=== PATIENT | female | born 1960 | race Caucasian/White ===

== ENCOUNTER → 2018-03-25 | Outpatient (CLI) | payer BC ==
[~2018-03-25] MED LIST: ALPR.25T PO; ESCI5TAB PO
[2018-03-25 12:11] LABS: BUN/CREATININE RATIO 24; CREATININE SERUM 0.74 MG/DL (0.60-1.30); GFR ESTIMATED > 60
== END ==
LOC: LAB 11:42
PROVIDERS: ATTEND Nurse Practitioner Family
DX: J40 Bronchitis, not specified as acute or chronic (principal); R91.8 Other nonspecific abnormal finding of lung field; J18.9 Pneumonia, unspecified organism; F17.200 Nicotine dependence, unspecified, uncomplicated
CPT/HCPCS: 36415; 82565; 84520

== ENCOUNTER → 2018-04-14 | Outpatient (CLI) | payer BC, MEDICARE, OTHER ==
[~2018-04-14] MED LIST changes: +CATHETER FLUSH 10 ML SYR IV PRN; +IOHEXOL 350 MG/ML 100 ML (OMNIPAQUE 350) VIAL IV ONE; +NS 100 ML (IVPB) BAG IV ONE; +RECEIVED CONTRAST (Hold Metformin) IV SCH
--- NOTE | 2018-04-14 13:08 | Diagnostic Imaging Report ---
PROCEDURE: CT chest with contrast only. TECHNIQUE: Multiple contiguous axial images were obtained through the chest after administration of intravenous contrast. INDICATION: Cough. There is an irregular mass in the right lower lobe measuring 3.6 x 2.5 cm, worrisome for lung cancer. Lesion would be amenable to percutaneous CT-guided biopsy. There is ipsilateral pathological-appearing right hilar lymph node measuring 2.0 x 1.3 cm. This pathological subcarinal lymphadenopathy measuring 2.5 x 2.0 cm. At the level of the tamy, right lower paratracheal node is 1 cm borderline. There is a right superior paratracheal node at 1.1 cm. There is pathological-appearing spherical irregular right axillary lymph node with a diameter of 1.5 cm. The largest left axillary lymph node is indeterminate 1.2 x 0.8 cm. There is a small node measuring 9 mm long axis left supraclavicular fossa lateral to the carotid vascularity indeterminate. No effusion or pneumothorax. The upper abdomen reveals the adrenal glands to be intact. The partially visualized liver nonfocal. There are spondylitic changes to the lower thoracic spine. IMPRESSION: Findings are worrisome for right lower lobe lung cancer with mediastinal and ipsilateral hilar jennifer metastatic disease, involvement of the axilla and left supraclavicular fossa could not be excluded. I attempted to reach the ordering clinician. She does not have a cell phone number or pager registered with the power plant operator apprentice and the clinic phone is unanswered. Dictated by: Dictated on workstation # [id number]
== END ==
LOC: RAD 11:50
PROVIDERS: ATTEND Nurse Practitioner Family
DX: J40 Bronchitis, not specified as acute or chronic (principal); R91.8 Other nonspecific abnormal finding of lung field; F17.200 Nicotine dependence, unspecified, uncomplicated; J18.9 Pneumonia, unspecified organism
CPT/HCPCS: 71260

== ENCOUNTER → 2018-04-18 | Outpatient (CLI) | payer BC, MEDICARE, OTHER ==
[~2018-04-18] MED LIST changes: +ASCO500C15 PO; +BENZ100C18 PO; -CATHETER FLUSH 10 ML SYR IV PRN; +CHOL2000 PO; +GUAI600T43 PO; +HYDR12.5 PO; -IOHEXOL 350 MG/ML 100 ML (OMNIPAQUE 350) VIAL IV ONE; +MULT-974 PO; -NS 100 ML (IVPB) BAG IV ONE; -RECEIVED CONTRAST (Hold Metformin) IV SCH; +RT-ALBUINH INH; +RT-ALBUTEROL SULF 2.5 MG/3 ML PRE-MIX VIAL INH ONE; +RT-ALBUTEROL SULF 2.5 MG/3 ML PRE-MIX VIAL ONE; +UBID100C44 PO; +VENL150C PO
== END ==
LOC: RT 14:57
PROVIDERS: ATTEND Nurse Practitioner Family
DX: J40 Bronchitis, not specified as acute or chronic (principal); R91.8 Other nonspecific abnormal finding of lung field; J18.9 Pneumonia, unspecified organism; F17.200 Nicotine dependence, unspecified, uncomplicated
CPT/HCPCS: 94060; 94729

== ENCOUNTER → 2018-04-18 | Outpatient (CLI) | payer BC ==
[~2018-04-18] MED LIST changes: -RT-ALBUTEROL SULF 2.5 MG/3 ML PRE-MIX VIAL INH ONE; -RT-ALBUTEROL SULF 2.5 MG/3 ML PRE-MIX VIAL ONE
== END | disposition home or self-care (01) ==
LOC: PREOP 06:28
PROVIDERS: ATTEND Internal Medicine Critical Care Medicine
DX: Z01.818 Encounter for other preprocedural examination (principal)

== ENCOUNTER → 2018-04-19 | Outpatient (CLI) | payer BC ==
--- NOTE | 2018-04-19 16:11 | Diagnostic Imaging Report ---
INDICATION: Lung mass and lymphadenopathy. TECHNIQUE: Serum blood glucose level at the time of injection is 82 mg/dL. The patient was administered 10.9 mCi F-18 FDG intravenously in the right forearm and PET imaging was performed from the top of the skull to mid thighs. Noncontrast CT was also performed for attenuation correction and anatomic correlation. COMPARISON: No prior PET studies available for comparison. Comparison is made with recent chest CT from 04/14/2018. FINDINGS: There is symmetric activity within the brain. There is a lymph node in the right neck appearing slightly hypermetabolic, immediately anterior to the right submandibular gland with a short axis measurement of 5 mm. This demonstrates an SUV max of approximately 3.4. This is indeterminate. No other hypermetabolic foci in the neck are identified. There is a hypermetabolic lymph node in the right axilla measuring 1.8 cm. This demonstrates SUV max of approximately 12.3. Hypermetabolic jennifer mass in the mediastinum subcarinal location is noted with SUV max of 18.9. Right hilar hypermetabolic mass is also seen with SUV max of approximately 15.8. The mass located posteriorly in the right lower lobe on prior imaging is intensely hypermetabolic with SUV max of approximately 15. Left hilum and left lung are unremarkable. Physiologic activity in the GI and tracts in the abdomen and pelvis is seen. No suspicious regions of hypermetabolism are identified. IMPRESSION: 1. Hypermetabolic right lower lobe lung mass. Features are most suggestive of a primary lung neoplasm. There are intensely hypermetabolic jennifer masses in the right hilum and subcarinal location consistent with mediastinal and right hilar metastatic disease. There is also a hypermetabolic enlarged lymph node in the right axilla suggestive of metastatic lesion. A small lymph node in the right neck anterior to the right submandibular gland is seen showing some mild hypermetabolism and is indeterminate. The right lower lobe lung mass would be amenable to percutaneous biopsy. Dictated by: Dictated on workstation # [id number]
== END ==
LOC: RAD 11:34
PROVIDERS: ATTEND Nurse Practitioner Family
DX: J40 Bronchitis, not specified as acute or chronic (principal); F17.200 Nicotine dependence, unspecified, uncomplicated; R59.1 Generalized enlarged lymph nodes; R91.8 Other nonspecific abnormal finding of lung field

== ENCOUNTER 2018-04-20 06:59 | Day surgery (SDC) | payer BC ==
[~2018-04-20] VITALS: Ht 160 cm; Wt 54.9 kg
[~2018-04-20 06:59] MED LIST changes: -ASCO500C15 PO; -BENZ100C18 PO; -CHOL2000 PO; -GUAI600T43 PO; -HYDR12.5 PO; -MULT-974 PO; -RT-ALBUINH INH; -UBID100C44 PO; -VENL150C PO
[2018-04-20] MEDS ORDERED: LIDOCAINE PF 1% 2 ML AMP IJ ONE (07:00)
--- OUTSIDE RECORDS SUMMARY | 2018-04-20 07:02 | XMS REPORT | CCD ---
Author Author JACINTO CABALLERO Organization Unknown Address [address] [facility] [address] [place], [place] [address] Care Team Providers Care Application Support Developer Name Role Phone HAINES ER, BRAD DO Attphys HAINES ER, BRAD DO Prisurg Vital Signs Unknown or Not Available. Allergies Allergy Code Allergy Type Reaction Status No Known Allergies 0 No known allergies Active Procedures Procedure Code Procedure Type Date CT HEAD W/O CONTRAST 541704376 SNOMED CT 02/18/2015 .[place]IDEPRESSANT UR 813892797 SNOMED CT 02/18/2015 .BENZO QUANT UR 762976385 SNOMED CT 02/18/2015 ^CBC W/AUTO DIFF 9288090 SNOMED CT 02/18/2015 C REACTIVE PROTEIN 07520647 SNOMED CT 02/18/2015 RAPID DRUG SCREEN 673069880 SNOMED CT 02/18/[address] 02/18/2015 COMPREHENSIVE METABOLIC PANEL 142935584 SNOMED CT 2014 CBC W/ AUTO DIFF (RFLX MAN DIFF IF IND) 7335059 SNOMED CT 02/18/2015 History of Immunizations Unknown or Not Available. Problems Unknown or Not Available. Results COMPREHENSIVE METABOLIC PANEL - Collect Date/Time: 02/18/2015 10:35 Test Name Code Test Result Test Units Test Ref Range GLUCOSE 2345-7 97 MG/DL L=70 H=100 SODIUM 2951-2 140 MEQ/L L=135 H=148 POTASSIUM 2823-3 5.1 MEQ/L L=3.5 H=5.3 CHLORIDE 2075-0 109 MEQ/L L=96 H=110 CO2 2028-9 25 MEQ/L L=22 H=29 BUN 3094-0 13 MG/DL L=8 H=22 CREATININE 2160-0 0.8 MG/DL L=0.6 H=1.6 SGOT/AST 1920-8 15 IU/L L=10 H=40 SGPT/ALT 1742-6 6 IU/L L=8 H=54 ALK PHOS 6768-6 74 IU/L L=35 H=115 TOTAL PROTEIN 2885-2 6.7 G/DL L=5.5 H=8.5 ALBUMIN 1751-7 4.1 G/DL L=3.1 H=5.4 TOTAL BILI 1975-2 0.3 MG/DL L=0.0 H=1.5 CALCIUM 07768-0 9.4 MG/DL L=8.2 H=10.6 AGE 55 yrs GFR NonAA 75 GFR AA 91 eGFR >60 N/A eGFR AA* >60 N/A RAPID DRUG SCREEN - Collect Date/Time: 02/18/2015 11:27 Test Name Code Test Result Test Units Test Ref Range Cannabinoids (THC) NEGATIVE N/A NEG: < 50 ng/ ml Phencyclidine (PCP) NEGATIVE N/A NEG: < 25 ng/ ml Cocaine NEGATIVE N/A NEG: < 300 ng/ml Methamphetamine NEGATIVE N/A NEG: < 1000 ng/ml Opiates NEGATIVE N/A NEG: < 300 ng/ml Amphetamine NEGATIVE N/A NEG: < 1000 ng/ml Benzodiazepines NON-NEGATIVE N/A NEG: < 300 ng/ ml Tricyclic Antidepres NON-NEGATIVE N/A NEG: < 300 ng/ml Methadone NEGATIVE N/A NEG: < 300 ng/ml Barbiturates NEGATIVE N/A NEG: < 200 ng/ml Oxycodone NEGATIVE N/A NEG: < 100 ng/ml Propoxyphene (PPX) NEGATIVE N/A NEG: < 300 ng/ ml CBC W/ AUTO DIFF (RFLX MAN DIFF IF IND) - Collect Date/Time: 02/18/2015 10:35 Test Name Code Test Result Test Units Test Ref Range WBC 06093-0 8.4 TH/CMM L=4.5 H=10.8 RBC 789-8 4.86 ML/CMM L=4.20 H=5.40 HGB 718-7 15.0 G/DL L=12.0 H=16.0 HCT 4544-3 46.5 % L=37.0 H=47.0 MCV 96 FL L=81 H=99 MCH 30.9 PG L=27.0 H=33.0 MCHC 32.3 G/DL L=31.0 H=36.0 RDW SD 45 FL L=36 H=50 RDW CV 12.8 % L=0.0 H=14.8 MPV 9.9 FL L=9.3 H=12.5 PLT 777-3 264 TH/CMM L=130 H=440 NRBC# 0.00 TH/CMM L=0.00 H=0.00 NRBC% 0.0 /100WBC L=0.0 H=2.0 %NEUT 78.2 % %LYMP 15.4 % %MONO 3.4 % %EOS 2.3 % %BASO 0.7 % #NEUT 6.59 TH/CMM L=2.10 H=8.20 #LYMP 1.30 TH/CMM L=0.90 H=5.20 #MONO 0.29 TH/CMM L=0.16 H=1.00 #EOS 0.19 TH/CMM L=0.00 H=0.80 #BASO 0.06 TH/CMM L=0.00 H=0.20 MANUAL DIFF NOT IND N/A C REACTIVE PROTEIN - Collect Date/Time: 02/18/2015 10:35 Test Name Code Test Result Test Units Test Ref Range C REACTIVE PROTEIN 1988-5 <0.5 MG/DL L=0.0 H= 1.0 TSH - Collect Date/Time: 02/18/2015 10:35 Test Name Code Test Result Test Units Test Ref Range TSH 08442-8 2.59 mIU/L L=0.35 H=4.94 Active Medications Unknown or Not Available. Medications Administered During Visit Unknown or Not Available. Encounters Encounter Diagnosis Diagnosis Code Start Date Orthostatic hypotension 62146225 02/18/2015 Social History Smoking Status Code Start Date End Date Current every day smoker [id number] Patient Decision Aids Unknown or Not Available. Discharge Instructions You were admitted to [facility] on 02/18/2015 with a principal diagnosis of Orthostatic hypotension . You were discharged from [facility] on 02/18/2015. Should you have any questions prior to discharge, please contact a member of your healthcare team. If you have left the hospital and have any questions, please contact your primary care physician. Chief Complaint and Reason For Visit Chief Complaint Date of Onset FALL INJURY LEG PAIN Function Status Unknown or Not Available. Plan of Care Unknown or Not Available. Referral/Transition of Care Unknown or Not Available.
--- OUTSIDE RECORDS SUMMARY | 2018-04-20 07:02 | XMS REPORT | Continuity of Care Document ---
Author Author [facility] Organization [facility] Address Unknown Phone Unavailable Allergies Active Description Code Type Severity Reaction Onset Reported/Identified Relationship to Patient Clinical Status Yes MILK [id number] FOOD N/A CONGESTION Yes No Known Allergies 73714766 N /A N/A Yes aspirin [id number] Drug Allergy Unknown N/A 04/14/2018 Medications There is no data. Problems Date Dx Coded Attending Type Code Diagnosis Diagnosed By 03/29/2018 Ot F17.200 NICOTINE DEPENDENCE, UNSPECIFIED, UNCOMP 03/29/2018 Ot J18.9 PNEUMONIA, UNSPECIFIED ORGANISM 03/29/2018 Ot J40 BRONCHITIS, NOT SPECIFIED ACUTE OR CH 03/29/2018 Ot R91.8 OTHER NONSPECIFIC ABNORMAL FINDING OF MAR[place] 04/08/2018 Ot F17.200 NICOTINE DEPENDENCE, UNSPECIFIED, UNCOMP 04/08/2018 Ot J18.9 PNEUMONIA, UNSPECIFIED ORGANISM 04/08/2018 Ot J40 BRONCHITIS, NOT SPECIFIED ACUTE OR CH 04/08/2018 Ot R91.8 OTHER NONSPECIFIC ABNORMAL FINDING OF [place] 04/14/2018 Ot F17.200 NICOTINE DEPENDENCE, UNSPECIFIED, UNCOMP 04/14/2018 Ot J18.9 PNEUMONIA, UNSPECIFIED ORGANISM 04/14/2018 Ot J40 BRONCHITIS, NOT SPECIFIED ACUTE OR CH 04/14/2018 Ot R91.8 OTHER NONSPECIFIC ABNORMAL FINDING OF MAR[place] 04/15/2018 SATYA GHOTRA BARKEEP Ot F17.200 NICOTINE DEPENDENCE, UNSPECIFIED, UNCOMP 04/15/2018 BRANDINSATYA POLLOCK BARKEEP Ot J18.9 PNEUMONIA, UNSPECIFIED ORGANISM 04/15/2018 SATYA GHOTRA BARKEEP Ot J40 BRONCHITIS, NOT SPECIFIED ACUTE OR CH 04/15/2018 SATYA GHOTRA BARKEEP Ot R91.8 OTHER NONSPECIFIC ABNORMAL FINDING OF [place] 04/15/2018 SATYA GHOTRA BARKEEP Ot F17.200 NICOTINE DEPENDENCE, UNSPECIFIED, UNCOMP 04/15/2018 SATYA GHOTRA BARKEEP Ot J18.9 PNEUMONIA, UNSPECIFIED ORGANISM 04/15/2018 SATYA GHOTRA APRN Ot J40 BRONCHITIS, NOT SPECIFIED ACUTE OR CH 04/15/2018 SATYA GHOTRA APRN Ot R91.8 OTHER NONSPECIFIC ABNORMAL FINDING OF MAR[place] Procedures There is no data. Results Test Result Range Thyroid Stimulating Hormone - 07/31/16 08:42 TSH 3.97 mIU/mL 0.32-5.00 Encounters ACCT No. Visit Date/Time Discharge Status Pt. Type Provider Facility Loc./Unit Complaint [id number] 05/09/2015 15:20:46 05/09/2015 23:59:59 CLS Outpatient Luisa Bright Gus [id number] 07/31/2016 08:42:00 07/31/2016 23:59:00 DIS Outpatient My Christina [id number] 03/21/2018 09:55:04 Document Registration [id number] 11/30/2017 11:07:40 Document Registration [id number] 11/11/2017 14:30:45 Document Registration [id number] 01/20/2017 11:06:24 Document Registration [id number] 04/14/2018 11:50:00 04/14/2018 23:59:59 CLS Outpatient SATYA GHOTRA APRN [facility] RAD BRONCHITIS [id number] 04/20/2018 07:30:00 PEN Preadmit KALLIE GARCIA DO [facility] ENDO LUNG MASS/BRONCHITIS/LYMPHADENOPATHY/ TOBACCO USER [id number] 04/19/2018 12:00:00 PEN Preadmit SATYA GHOTRA APRN [facility] RAD LUNG MASS [id number] 04/18/2018 14:57:00 ACT Outpatient SATYA GHOTRA APRN [facility] RT BRONCHITIS [id number] 04/18/2018 06:28:00 ACT Outpatient KALLIE GARCIA DO [facility] PREOP EBUS [id number] 03/25/2018 11:42:00 Document Registration
--- OUTSIDE RECORDS SUMMARY | 2018-04-20 07:02 | XMS REPORT ---
Author Author SHEREEKERON ONEIL [facility] Address [address] [place] [address] Care Team Providers Care Traffic And Transport Planner Name Role Phone KERON REBOLLEDO Unavailable PROBLEMS Type Condition ICD9-CM Code [id number] Code Onset Dates Condition Status SNOMED Code Problem Post traumatic stress disorder (PTSD) F43.10 Active 98609072 Problem Panic disorder F41.0 Active 829732622 Problem Tobacco use disorder F17.200 Active 736176988 Problem Bilateral hearing loss, unspecified hearing loss type H91.93 Active 57430457 ALLERGIES No Known Allergies ENCOUNTERS Encounter Location Date Diagnosis [facility] [id number] [place] [address] Jan [facility] [address] [place], [place] [address] [id number] [place] [address] Dec Panic disorder F41.0 and Post traumatic stress disorder (PTSD) F43.10 IMMUNIZATIONS No Known Immunizations SOCIAL HISTORY Never Assessed REASON FOR VISIT Pt present to establish care. SJ, RMA PLAN OF CARE Activity Details Follow Up prn Reason: VITAL SIGNS Height 61 in 2017-12-29 Weight 110.5 lbs 2017-12-29 Temperature 97.8 degrees Fahrenheit 2017-12-29 Heart Rate 101 bpm 2017-12-29 Respiratory Rate 18 2017-12-29 Oximetry 96 % 2017-12-29 BMI 20.88 kg/m2 2017-12-29 Blood pressure systolic 118 mmHg 2017-12-29 Blood pressure diastolic 72 mmHg 2017-12-29 MEDICATIONS Medication Instructions Dosage Frequency Start Date End Date Duration Status Effexor XR 75 MG Orally Once a day 1 capsule with food 24h Active RESULTS No Results PROCEDURES No Known procedures INSTRUCTIONS MEDICATIONS ADMINISTERED No Known Medications MEDICAL (GENERAL) HISTORY Type Description Date Medical History Panic disorder Medical History Chronic depression Medical History PTSD Medical History Tobacco use disorder Medical History Hearing impairment: has cochlear implants Surgical History Hysterectomy and BSO 2007 Surgical History Cochlear surgery 2017 Hospitalization History Hysterectomy 2008
--- OUTSIDE RECORDS SUMMARY | 2018-04-20 07:02 | XMS REPORT ---
Author Author KERON REBOLLEDO [facility] Address [address] [place] [address] Care Team Providers Care Deicer Inspector Electric Name Role Phone KERON REBOLLEDO Unavailable PROBLEMS Type Condition ICD9-CM Code TRT90-WU Code Onset Dates Condition Status SNOMED Code Problem Post traumatic stress disorder (PTSD) F43.10 Active 05950107 Problem Panic disorder F41.0 Active 545201789 Problem Tobacco use disorder F17.200 Active 914602034 Problem Bilateral hearing loss, unspecified hearing loss type H91.93 Active 76592631 ALLERGIES No Information ENCOUNTERS Encounter Location Date Diagnosis [facility] [address] [id number] [place] [address] Jan [facility] [address] [place] [address] [id number] [place] [address] Dec Panic disorder F41.0 and Post traumatic stress disorder (PTSD) F43.10 IMMUNIZATIONS No Known Immunizations SOCIAL HISTORY Never Assessed REASON FOR VISIT PLAN OF CARE VITAL SIGNS MEDICATIONS Medication Instructions Dosage Frequency Start Date End Date Duration Status Remeron 30 MG Orally Once a day 1 tablet at bedtime 24h 30 day(s) Active Effexor XR 150 MG Orally Once a day 1 capsule with food 24h Active RESULTS No Results PROCEDURES No Known procedures INSTRUCTIONS MEDICATIONS ADMINISTERED No Known Medications MEDICAL (GENERAL) HISTORY Type Description Date Medical History Panic disorder Medical History Chronic depression Medical History PTSD Medical History Tobacco use disorder Medical History Hearing impairment: has cochlear implants Surgical History Hysterectomy and BSO 2008 Surgical History Cochlear surgery 2017 Hospitalization History Hysterectomy 2008
[2018-04-20 07:10] VITALS: BP 114/71
[2018-04-20] MEDS ORDERED: LACTATED RINGERS 1,000 ML IV PRN (07:10)
[2018-04-20] MEDS ORDERED: NALOXONE 0.4 MG/ML 1 ML (NARCAN) VIAL IVP PRN (07:15)
[2018-04-20] MEDS ORDERED: FLUMAZENIL (ROMAZICON) 0.1 MG/ML 5 ML VIAL INJ PRN (07:15)
[2018-04-20] MEDS ORDERED: SEVOFLURANE (ULTANE) 15 ML INHAL SOLN ONE (07:20)
[2018-04-20] MEDS ORDERED: ONDANSETRON 4 MG/2 ML (SDV) Z0FRAN ONE (07:21)
[2018-04-20] MEDS ORDERED: GLYCOPYRROLATE 0.2 MG/ML (ROBINUL) 2 ML VIAL ONE (07:21)
[2018-04-20] MEDS ORDERED: fentaNYL INJECTION 100 MCG/2 ML AMP ONE (07:21)
[2018-04-20] MEDS ORDERED: proPOfol 200 MG/20 ML (DIPRIVAN) VIAL IV ONE (07:21)
[2018-04-20] MEDS ORDERED: MIDAZOLAM 2 MG/2 ML (VERSED) VIAL ONE (07:21)
[2018-04-20] MEDS ORDERED: LIDOCAINE PF 2% 5 ML (XYLOCAINE) VIAL ONE (07:21)
[2018-04-20] MEDS ORDERED: ROCURONIUM 10 MG/ML 5 ML SYRINGE IV ONE (07:23)
[2018-04-20] MEDS ORDERED: NEOSTIGMINE 1 MG/ML 5 ML SYRINGE ONE (07:23)
[2018-04-20] MEDS ORDERED: VENL150C PO ×2 (07:48→07:58)
[2018-04-20] MEDS ORDERED: ASCO500C15 PO (07:58)
[2018-04-20] MEDS ORDERED: MULT-974 PO (07:58)
[2018-04-20] MEDS ORDERED: UBID100C44 PO (07:58)
[2018-04-20] MEDS ORDERED: RT-ALBUINH INH (07:58)
[2018-04-20] MEDS ORDERED: BENZ100C18 PO (07:58)
[2018-04-20] MEDS ORDERED: HYDR12.5 PO (07:58)
[2018-04-20] MEDS ORDERED: GUAI600T43 PO (07:58)
[2018-04-20] MEDS ORDERED: CHOL2000 PO (07:58)
--- NOTE | 2018-04-20 08:34 | Pulmonary Procedures ---
Pulmonary Procedures Date of Procedure Date of Service: Apr 20, 2018 Bronch Bronchoscopy with EBUS with bx of station 7 and 10R lymph nodes US guidance. A bronchial brush was done x 2 at tamy and x 1 of right bronchus intermedius. Preop DX: Lung mass with mediastinal lymphadenopathy no endobronchial mass PostOP DX: same Complications: None Pt was sedated per anesthesia. Bronchoscopy was advanced through the ED tube and an anatomical undertaken down to the segmental bronchi bilaterally. No endobronchial lesions noted. From the RML BAL, and wash wash was obtained. A brush was done x 2 at tamy and x 1 of right bronchus intermedius. EBUS was then advanced through ET tube and the mediastinum was US. Station 7 and 10R lymph nodes were sampled via needle bx under US guidance. Pt tolerated procedure well. No complications noted. KALLIE GARCIA DO Apr 20, 2018 08:34
[2018-04-20 09:20] VITALS: BP 126/73
--- NOTE | 2018-04-20 09:25 | Diagnostic Imaging Report ---
INDICATION: Post bronchoscopy PA chest 9:02 AM There is diffuse interstitial infiltrate in the right lung. Left lung is clear. There is no effusion or pneumothorax. IMPRESSION: Interstitial infiltrate present throughout the right lung. Dictated by: Dictated on workstation # [id number]
--- NOTE | 2018-04-20 09:40 | Anesthesia-General Post-Op ---
General Patient Condition Mental Status/LOC: Same as Preop Cardiovascular: Satisfactory Nausea/Vomiting: Absent Respiratory: Satisfactory Pain: Controlled Complications: Absent Post Op Complications Complications None Follow Up Care/Instructions Patient Instructions None needed. Anesthesia/Patient Condition Patient Condition Patient is doing well, no complaints, stable vital signs, no apparent adverse anesthesia problems. No complications reported per nursing. FRAN CHACON CRNA Apr 20, 2018 09:40
[2018-04-20 09:50] VITALS: BP 116/73
[2018-04-20 10:05] VITALS: BP 116/73
[2018-04-20 10:42] LABS: BODY FLUID APPEARENCE MKD CLDY; BODY FLUID COLOR XANTHO
[2018-04-20 10:43] LABS: BF OTHER CELLS 68 %; BODY FLUID SOURCE OTHER; LYMPHOCYTES,BODY FLUID 26 %
== END 2018-04-20 10:00 | disposition home or self-care (01) ==
LOC: ENDO 06:59
PROVIDERS: ATTEND Internal Medicine Critical Care Medicine
DX: C77.1 Secondary and unspecified malignant neoplasm of intrathoracic lymph nodes (principal); R91.8 Other nonspecific abnormal finding of lung field; J44.9 Chronic obstructive pulmonary disease, unspecified; K21.9 Gastro-esophageal reflux disease without esophagitis; F17.200 Nicotine dependence, unspecified, uncomplicated; Z99.81 Dependence on supplemental oxygen; Z79.899 Other long term (current) drug therapy
CPT/HCPCS: 71045; 87015; 87070; 87077; 87101; 87116; 87184; 87205; 87206; 89051

== ENCOUNTER → 2018-05-11 | Outpatient (CLI) | payer BC ==
[~2018-05-11] MED LIST changes: +ASCO500C15 PO; +BENZ100C18 PO; +CHOL2000 PO; +GUAI600T43 PO; +HYDR12.5 PO; +IOHEXOL 350 MG/ML 100 ML (OMNIPAQUE 350) VIAL IV ONE; +MULT-974 PO; +NS 100 ML (IVPB) BAG IV ONE; +RECEIVED CONTRAST (Hold Metformin) IV SCH; +RT-ALBUINH INH; +UBID100C44 PO; +VENL150C PO
--- NOTE | 2018-05-11 13:07 | Diagnostic Imaging Report ---
PROCEDURE: CT head with and without contrast. TECHNIQUE: Multiple contiguous axial images were obtained through the brain before and after the administration of intravenous contrast. INDICATION: Lung cancer. FINDINGS: There are no previous CT head examinations available for comparison. The PET/CT exam performed on 04/19/2018 failed to show any sign of an intracranial mass. On this study, there is no mass, shift of the midline, or hemorrhage to suggest an acute intracranial abnormality. There is no abnormal enhancement on the post contrast series to indicate a neoplastic or infectious process and there is no obvious aneurysm of the [place] of [place]. However, it should be noted that the right parietal and temporal lobes are obscured to a great degree due to streak artifact related to a metallic port overlying the right parietal bone. This metallic device is of uncertain etiology. The ventricles are not abnormally dilated. There is mild cortical atrophy present. The degree of atrophy is consistent with the patient's age. The bone windows show no sign of a fracture or of a destructive lesion. The orbits and sinuses were not visualized in their entirety. Where visualized, there is no acute abnormality. IMPRESSION: 1. The intracranial contents, where visualized, are unremarkable for an acute abnormality. There is no abnormal enhancement to suggest neoplastic or infectious process, however. 2. It should be noted that much of the right temporal and parietal lobes are obscured by artifact related to the metallic port in the right parietal bone. Dictated by: Dictated on workstation # [id number]
--- NOTE | 2018-05-11 19:52 | Diagnostic Imaging Report ---
INDICATION: Right axillary mass. EXAMINATION: Ultrasound of the right axilla. FINDINGS: The PET/CT exam performed on 04/19/2018 indicated a 1.8 cm hypermetabolic lymph node in the right axilla. On this exam, there is a 2.5 x 1.0 x 2.0 cm hypoechoic mass with internal vascularity in this area. I suspect that this corresponds to the finding on the PET/CT exam. Reportedly, ultrasound-guided biopsy of this lesion is pending. IMPRESSION: There is a 2.5 x 1.0 x 2.0 cm mass in the right adnexa. This should be considered neoplastic until proven otherwise. An ultrasound-guided biopsy is pending. ACR BI-RADS Category 4: Suspicious abnormality. Result letter will be mailed to the patient. Note: At least 10% of breast cancer is not imaged by mammography. Dictated on workstation # [id number]
== END ==
LOC: RAD 10:20
PROVIDERS: ATTEND Internal Medicine Hematology & Oncology
DX: C34.31 Malignant neoplasm of lower lobe, right bronchus or lung (principal); R59.1 Generalized enlarged lymph nodes
CPT/HCPCS: 70470

== ENCOUNTER → 2018-05-12 | Outpatient (CLI) | payer BC ==
[~2018-05-12] VITALS: Ht 160 cm; Wt 53.5 kg
[~2018-05-12] MED LIST changes: -IOHEXOL 350 MG/ML 100 ML (OMNIPAQUE 350) VIAL IV ONE; -NS 100 ML (IVPB) BAG IV ONE; -RECEIVED CONTRAST (Hold Metformin) IV SCH
[2018-05-12] MEDS: LIDOCAINE 1% INJ 20 ML 20 ML VIAL INJ ONE (10:11)
--- NOTE | 2018-05-12 22:11 | Diagnostic Imaging Report ---
INDICATION: Evaluate clip placement. EXAMINATION: Single MLO view of the right breast was obtained. FINDINGS: There is a surgical clip seen in the right axilla. IMPRESSION: Satisfactory clip placement, as described. Dictated by: Dictated on workstation # [id number]
--- NOTE | 2018-05-12 22:18 | Diagnostic Imaging Report ---
INDICATION: Right axillary node biopsy. TECHNIQUE AND FINDINGS: After explaining the risks, benefits and alternatives of the procedure to the patient, written consent was obtained. Patient's right axilla was prepped and draped utilizing maximal sterile barrier technique. Local anesthesia was obtained with 2% lidocaine. An 18-gauge Temno needle was advanced into the lesion under ultrasound guidance. 4 core biopsy specimens were obtained. The needle was removed. Clip was placed immediately adjacent to the lymph node. Patient tolerated the procedure well and left the department in good condition. IMPRESSION: Successful ultrasound-guided right axillary lymph node biopsy, as described. Dictated by: Dictated on workstation # [id number]
== END ==
LOC: RAD 09:42
PROVIDERS: ATTEND Internal Medicine Hematology & Oncology
DX: C34.31 Malignant neoplasm of lower lobe, right bronchus or lung (principal); L98.8 Other specified disorders of the skin and subcutaneous tissue; R59.0 Localized enlarged lymph nodes
CPT/HCPCS: 19083

== ENCOUNTER 2018-05-16 06:48 | Outpatient (CLI) | payer BC ==
[~2018-05-16] VITALS: Ht 160 cm; Wt 53.5 kg
[2018-05-18] MEDS ORDERED: HYDR-3812 PO ×2 (07:49→10:15)
== END 2018-05-16 13:03 | disposition home or self-care (01) ==
LOC: PREOP 06:48
PROVIDERS: ATTEND Surgery
DX: Z01.818 Encounter for other preprocedural examination (principal)

== ENCOUNTER 2018-05-18 07:25 | Day surgery (SDC) | payer BC ==
[~2018-05-18] VITALS: Ht 160 cm; Wt 53.5 kg
--- OUTSIDE RECORDS SUMMARY | 2018-05-18 07:30 | XMS REPORT | Continuity of Care Document ---
Author Author [facility] Organization [facility] Address Unknown Phone Unavailable Allergies Active Description Code Type Severity Reaction Onset Reported/Identified Relationship to Patient Clinical Status Yes MILK [id number] FOOD N/A CONGESTION Yes No Known Allergies [id number] N /A N/A Yes aspirin [id number] Drug Allergy Unknown N/A 04/14/2018 Medications There [...] ABNORMAL FINDING OF MARGO 04/15/2018 SATYA GHOTRA KICKING MACHINE OPERATOR Ot F17.200 NICOTINE DEPENDENCE, UNSPECIFIED, UNCOMP 04/15/2018 BRANDINSATYA POLLOCK KICKING MACHINE OPERATOR Ot J18.9 PNEUMONIA, UNSPECIFIED ORGANISM 04/15/2018 SATYA GHOTRA KICKING MACHINE OPERATOR Ot J40 BRONCHITIS, NOT SPECIFIED ACUTE OR CH 04/15/2018 SATYA GHOTRA KICKING MACHINE OPERATOR Ot R91.8 OTHER NONSPECIFIC ABNORMAL FINDING OF MARGO 04/15/2018 SATYA GHOTRA KICKING MACHINE OPERATOR Ot F17.200 NICOTINE DEPENDENCE, UNSPECIFIED, UNCOMP 04/15/2018 SATYA GHOTRA KICKING MACHINE OPERATOR Ot J18.9 PNEUMONIA, UNSPECIFIED ORGANISM 04/15/2018 SATYA GHOTRA KICKING MACHINE OPERATOR Ot J40 BRONCHITIS, NOT SPECIFIED ACUTE OR CH 04/15/2018 SATYA GHOTRA KICKING MACHINE OPERATOR Ot R91.8 OTHER NONSPECIFIC ABNORMAL FINDING OF MARGO 04/19/2018 KALLIE GARCIA DO Ot Z01.818 ENCOUNTER FOR OTHER PREPROCEDURAL EXAMIN 04/20/2018 SATYA GHOTRA KICKING MACHINE OPERATOR Ot F17.200 NICOTINE DEPENDENCE, UNSPECIFIED, UNCOMP 04/20/2018 SATYA GHOTRA KICKING MACHINE OPERATOR Ot J40 BRONCHITIS, NOT SPECIFIED ACUTE OR CH 04/20/2018 SATYA GHOTRA KICKING MACHINE OPERATOR Ot R59.1 GENERALIZED ENLARGED LYMPH NODES 04/20/2018 SATYA GHOTRA APRN Ot R91.8 OTHER NONSPECIFIC ABNORMAL FINDING OF MARGO 04/20/2018 KALLIE GARCIA DO Ot C77.1 SECONDARY AND UNSP MALIGNANT NEOPLASM OF 04/20/2018 KALLIE GARCIA DO Ot F17.200 NICOTINE DEPENDENCE, UNSPECIFIED, UNCOMP 04/20/2018 KALLIE GARCIA DO Ot J44.9 CHRONIC OBSTRUCTIVE PULMONARY DISEASE, U 04/20/2018 KALLIE GARCIA DO Ot K21.9 GASTRO-ESOPHAGEAL REFLUX DISEASE WITHOUT 04/20/2018 KALLIE GARCIA DO Ot R59.1 GENERALIZED ENLARGED LYMPH NODES 04/20/2018 KALLIE GARCIA DO Ot R91.8 OTHER NONSPECIFIC ABNORMAL FINDING OF MARGO 04/20/2018 KALLIE GARCIA DO Ot Z79.899 OTHER INTERMEDIATE (CURRENT) DRUG THERAPY 04/20/2018 KALLIE GARCIA DO Ot Z99.81 DEPENDENCE ON SUPPLEMENTAL OXYGEN 04/21/2018 SATYA GHOTRA APRN Ot F17.200 NICOTINE DEPENDENCE, UNSPECIFIED, UNCOMP 04/21/2018 SATYA GHOTRA KICKING MACHINE OPERATOR Ot J18.9 PNEUMONIA, UNSPECIFIED ORGANISM 04/21/2018 SATYA GHOTRA KICKING MACHINE OPERATOR Ot J40 BRONCHITIS, NOT SPECIFIED ACUTE OR CH 04/21/2018 SATYA GHOTRA KICKING MACHINE OPERATOR Ot R91.8 OTHER NONSPECIFIC ABNORMAL FINDING OF MARGO 04/25/2018 SATYA GHOTRA KICKING MACHINE OPERATOR Ot F17.200 NICOTINE DEPENDENCE, UNSPECIFIED, UNCOMP 04/25/2018 SATYA GHOTRA KICKING MACHINE OPERATOR Ot J18.9 PNEUMONIA, UNSPECIFIED ORGANISM 04/25/2018 SATYA GHOTRA KICKING MACHINE OPERATOR Ot J40 BRONCHITIS, NOT SPECIFIED ACUTE OR CH 04/25/2018 BRANDINDANYA POLLOCKINE Xochilt KICKING MACHINE OPERATOR Ot R91.8 OTHER NONSPECIFIC ABNORMAL FINDING OF MARGO 04/25/2018 SATYA GHOTRA KICKING MACHINE OPERATOR Ot F17.200 NICOTINE DEPENDENCE, UNSPECIFIED, UNCOMP 04/25/2018 BRANDINDANYA POLLOCKINE Xochilt KICKING MACHINE OPERATOR Ot J18.9 PNEUMONIA, UNSPECIFIED ORGANISM 04/25/2018 BRANDINDANYA POLLOCKINE Xochilt KICKING MACHINE OPERATOR Ot J40 BRONCHITIS, NOT SPECIFIED ACUTE OR CH 04/25/2018 BRANDINDANYA POLLOCKINE Xochilt KICKING MACHINE OPERATOR Ot R91.8 OTHER NONSPECIFIC ABNORMAL FINDING OF MARGO 04/25/2018 Ot F17.200 NICOTINE DEPENDENCE, UNSPECIFIED, UNCOMP 04/25/2018 Ot J18.9 PNEUMONIA, UNSPECIFIED ORGANISM 04/25/2018 Ot J40 BRONCHITIS, NOT SPECIFIED ACUTE OR CH 04/25/2018 Ot R91.8 OTHER NONSPECIFIC ABNORMAL FINDING OF MARGO 04/25/2018 SATYA GHOTRA KICKING MACHINE OPERATOR Ot F17.200 NICOTINE DEPENDENCE, UNSPECIFIED, UNCOMP 04/25/2018 BRANDINDANYA POLLOCKINE Xochilt KICKING MACHINE OPERATOR Ot J40 BRONCHITIS, NOT SPECIFIED ACUTE OR CH 04/25/2018 SATYA GHOTRA KICKING MACHINE OPERATOR Ot R59.1 GENERALIZED ENLARGED LYMPH NODES 04/25/2018 SATYA GHOTRA KICKING MACHINE OPERATOR Ot R91.8 OTHER NONSPECIFIC ABNORMAL FINDING OF MARGO 04/25/2018 KALLIE GARCIA DO Ot Z01.818 ENCOUNTER FOR OTHER PREPROCEDURAL EXAMIN 04/26/2018 KALLIE GARCIA DO Ot C77.1 SECONDARY AND UNSP MALIGNANT NEOPLASM OF 04/26/2018 KALLIE GARCIA DO Ot F17.200 NICOTINE DEPENDENCE, UNSPECIFIED, UNCOMP 04/26/2018 KALLIE GARCIA DO Ot J44.9 CHRONIC OBSTRUCTIVE PULMONARY DISEASE, U 04/26/2018 KALLIE GARCIA DO Ot K21.9 GASTRO-ESOPHAGEAL REFLUX DISEASE WITHOUT 04/26/2018 KALLIE GARCIA DO Ot R91.8 OTHER NONSPECIFIC ABNORMAL FINDING OF MARGO 04/26/2018 KALLIE GARCIA DO Ot Z79.899 OTHER INTERMEDIATE (CURRENT) DRUG THERAPY 04/26/2018 KALLIE GARCIA DO Ot Z99.81 DEPENDENCE ON SUPPLEMENTAL OXYGEN 04/28/2018 BRANDINSATYA POLLOCK KICKING MACHINE OPERATOR Ot F17.200 NICOTINE DEPENDENCE, UNSPECIFIED, UNCOMP 04/28/2018 BRANDINSATYA POLLOCK KICKING MACHINE OPERATOR Ot J18.9 PNEUMONIA, UNSPECIFIED ORGANISM 04/28/2018 BRANDINSATYA POLLOCK KICKING MACHINE OPERATOR Ot J40 BRONCHITIS, NOT SPECIFIED ACUTE OR CH 04/28/2018 BRANDINDANYA POLLOCKINE E KICKING MACHINE OPERATOR Ot R91.8 OTHER NONSPECIFIC ABNORMAL FINDING OF MARGO 05/04/2018 BRANDINDANYA POLLOCKINE Xochilt KICKING MACHINE OPERATOR Ot F17.200 NICOTINE DEPENDENCE, UNSPECIFIED, UNCOMP 05/04/2018 BRANDINDANYA POLLOCKINE E KICKING MACHINE OPERATOR Ot J18.9 PNEUMONIA, UNSPECIFIED ORGANISM 05/04/2018 BRANDINDANYASATYA Xochilt KICKING MACHINE OPERATOR Ot J40 BRONCHITIS, NOT SPECIFIED ACUTE OR CH 05/04/2018 BRANDINSATYA POLLOCK KICKING MACHINE OPERATOR Ot R91.8 OTHER NONSPECIFIC ABNORMAL FINDING OF MARGO 05/04/2018 BRANDINSATYA POLLOCK KICKING MACHINE OPERATOR Ot F17.200 NICOTINE DEPENDENCE, UNSPECIFIED, UNCOMP 05/04/2018 BRANDINSATYA POLLOCK KICKING MACHINE OPERATOR Ot J40 BRONCHITIS, NOT SPECIFIED ACUTE OR CH 05/04/2018 BRANDINSATYA POLLOCK KICKING MACHINE OPERATOR Ot R59.1 GENERALIZED ENLARGED LYMPH NODES 05/04/2018 BRANDINSATYA POLLOCK KICKING MACHINE OPERATOR Ot R91.8 OTHER NONSPECIFIC ABNORMAL FINDING OF MARGO 05/11/2018 SHEA MOJICA MD Ot C34.31 MALIGNANT NEOPLASM OF LOWER LOBE, RIGHT 05/11/2018 SHEA MOJICA MD Ot R59.1 GENERALIZED ENLARGED LYMPH NODES 05/15/2018 SHEA MOJICA MD Ot C34.31 MALIGNANT NEOPLASM OF LOWER LOBE, RIGHT 05/15/2018 SHEA MOJICA MD Ot L98.8 OTH DISRD OF THE SKIN AND SUBCUTANEOUS T 05/15/2018 SHEA MOJICA MD Ot R59.0 LOCALIZED ENLARGED LYMPH NODES 05/16/2018 MANAN DEWITT DO Ot Z01.818 ENCOUNTER FOR OTHER PREPROCEDURAL EXAMIN Procedures There is no data. Results Test Result Range Thyroid Stimulating Hormone - 07/31/16 08:42 TSH 3.97 mIU/mL 0.32-5.00 BODY FLUID DIFFERENTIAL - 04/20/18 00:00 Specimen source identification of body fluid OTHER NRG Evaluation of color of body fluid XANTHO NRG Determination of appearance of body fluid MKD CLDY NRG Manual body fluid polymorphonuclear cells/100 leukocytes 6 % NRG Manual body fluid lymphocytes/100 leukocytes 26 % NRG Other cells/100 leukocytes in body fluid by manual count 68 % NRG Sputum Gram stain - 04/20/18 08:20 Sputum Gram stain 04-21-2018, 0605. NRG Bacteria identification in bronchial specimen by aerobe culture - 04/20/18 08: 20 QUANTITY OF GROWTH . NRG Bacteria identification in bronchial specimen by aerobe culture [id number] NRG FTX;REPORTABLE 800 CFU/ML NRG RML KB Sensitivity Panel - 04/20/18 08:20 Trimethoprim/sulfamethoxazole susceptibility test by agar diffusion S NRG Vancomycin susceptibility test by agar diffusion S NRG LEVOFLOXACIN S NRG Penicillin G susceptibility test by agar diffusion S NRG Clindamycin susceptibility test by agar diffusion S NRG Erythromycin susceptibility test by agar diffusion S NRG C FUNGUS SPUTUM FLUID TISSUE - 04/20/18 08:20 C FUNGUS SPUTUM FLUID TISSUE NG NRG Sputum Gram stain - 04/20/18 08:21 Sputum Gram stain 04-21-2018, 0605. NRG Bacteria identification in bronchial specimen by aerobe culture - 04/20/18 08: 21 Bacteria identification in bronchial specimen by aerobe culture NG NRG C FUNGUS SPUTUM FLUID TISSUE - 04/20/18 08:21 FUNGUS REPORT CURRENT REPORT: NEGATIVE NRG FUNGUS EXAM FINAL REQUIRES 4 WEEKS NRG Mycobacterium species detection by organism specific culture - 04/20/18 08:22 FTX;REPORTABLE CULTURE IN PROGRESS NRG Encounters ACCT No. Visit Date/Time Discharge Status Pt. Type Provider Facility Loc./Unit Complaint [id number] 05/09/2015 15:20:46 05/09/2015 23:59:59 CLS Outpatient Luisa Bright [id number] 07/31/2016 08:42:00 07/31/2016 23:59:00 DIS Outpatient My Christina [id number] 04/20/2018 13:01:56 Document Registration [id number] 03/21/2018 09:55:04 Document Registration [id number] 11/30/2017 11:07:40 Document Registration [id number] 11/11/2017 14:30:45 Document Registration [id number] 01/20/2017 11:06:24 Document Registration [id number] 05/16/2018 06:48:00 05/16/2018 13:03:00 DIS Outpatient MANAN DEWITT DO [facility] PREOP LUNG CANCER [id number] 05/12/2018 09:42:00 05/12/2018 23:59:59 CLS Outpatient SHEA MOJICA MD [facility] RAD LUNG CA [id number] 05/11/2018 10:20:00 05/11/2018 23:59:59 CLS Outpatient SHEA MOJICA MD [facility] RAD LUNG CANCER,TENDER LYMPH NODE [id number] 05/11/2018 09:55:00 05/11/2018 23:59:59 CLS Outpatient SHEA MOJICA MD [facility] ONC [id number] 05/09/2018 09:24:00 05/09/2018 23:59:59 CLS Preadmit SHEA MOJICA MD [facility] RAD LUNG CA [id number] 04/20/2018 06:59:00 04/20/2018 10:00:00 DIS Outpatient KALLIE GARCIA DO [facility] ENDO LUNG MASS/BRONCHITIS/ LYMPHADENOPATHY/TOBACCO USER [id number] 04/19/2018 11:34:00 04/19/2018 23:59:59 CLS Outpatient SATYA GHOTRA KICKING MACHINE OPERATOR [facility] RAD LUNG MASS [id number] 04/18/2018 14:57:00 04/18/2018 23:59:59 CLS Outpatient SATYA GHOTRA KICKING MACHINE OPERATOR [facility] RT BRONCHITIS [id number] 04/18/2018 06:28:00 04/18/2018 23:59:59 CLS Outpatient KALLIE GARCIA DO [facility] PREOP EBUS [id number] 04/14/2018 11:50:00 04/14/2018 23:59:59 CLS Outpatient SATYA GHOTRA KICKING MACHINE OPERATOR [facility] RAD BRONCHITIS [id number] 05/18/2018 07:25:00 ACT Outpatient MANAN DEWITT DO [facility] SDC LUNG CANCER [id number] 03/25/2018 11:42:00 Document Registration
[2018-05-18] MEDS ORDERED: LACTATED RINGERS 1,000 ML IV PRN (07:43)
[2018-05-18 07:45] VITALS: BP 112/75
[2018-05-18] MEDS ORDERED: ceFAZolin 2 GM IV Premixed 50 ML IV ONE (07:45)
[2018-05-18] MEDS ORDERED: HYDR-3812 PO ×2 (07:49→10:15)
[2018-05-18] MEDS ORDERED: IBUP-2055 PO (07:49)
[2018-05-18] MEDS ORDERED: fentaNYL INJECTION 100 MCG/2 ML AMP ONE (08:20)
[2018-05-18] MEDS ORDERED: PROPOFOL INJECTION 50 ML IV ONE (08:20)
[2018-05-18] MEDS ORDERED: MIDAZOLAM 2 MG/2 ML (VERSED) VIAL ONE (08:20)
[2018-05-18] MEDS ORDERED: BUP/EPI 0.5% 1:200,000 (SENSORCAINE) 30 ML VIAL ONE (08:37)
[2018-05-18] MEDS ORDERED: LIDOCAINE 1% INJ 20 ML 20 ML VIAL ONE (08:37)
[2018-05-18] MEDS ORDERED: 0.9% SODIUM CHLORIDE PF INJ 20 ML VIAL ONE (08:37)
[2018-05-18] MEDS ORDERED: HEParin (CENTRAL IV FLUSH) 500 UNIT/5 ML SYR ONE (08:37)
--- NOTE | 2018-05-18 10:13 | Progress Note-Pre Operative ---
Pre-Operative Progress Note H&P Reviewed The H&P was reviewed, patient examined and no changes noted. Time Seen by Provider: 09:20 Date H&P Reviewed: May 18, 2018 Time H&P Reviewed: 09:21 Pre-Operative Diagnosis: Lung CA, Venous Insufficiency MANAN DEWITT DO May 18, 2018 10:12
--- NOTE | 2018-05-18 10:13 | Progress Note-Post Operative ---
Post-Operative Progess Note Surgeon (s)/Tape Deck Installer (s) Surgeon MANAN DEWITT DO Tape Deck Installer: none Pre-Operative Diagnosis Lung CA, Venous Insufficiency Post-Operative Diagnosis same Procedure & Operative Findings Date of Procedure 05/18/18 Procedure Performed/Findings Eddie-cath insertion Anesthesia Type MAC Estimated Blood Loss Estimated blood loss (mL): scant Specimens/Packing Specimens Removed none MANAN DEWITT DO May 18, 2018 10:13
[2018-05-18] MEDS ORDERED: ONDANSETRON 4 MG/2 ML (SDV) Z0FRAN IVP PRN (10:15)
[2018-05-18] MEDS ORDERED: morphine INJ 10 MG/ML 1ML (SYR OR VIAL) IVP ONE (10:15)
--- NOTE | 2018-05-18 10:16 | Discharge Inst-Surgical ---
Discharge Inst-Surgical Depart Medication/Instructions New, Converted or Re-Newed RX: RX Given to Pt/Family Patient Instructions Follow up Appt: Make appointment for 1 week. [phone] Instructions: No lifting greater than 20 pounds. No strenuous activity. May shower in 24 hours, no tub bath or soaking. Use incentive spirometer at home as directed. No Smoking Skin/Wound Care: May remove bandages in am. You need to leave the Dermabond on incision it will fall off on it's own. Symptoms to Report: Appetite Changes, Extremity Discoloration, Numbness/Tingling, Swelling Increased , Bleeding Excessive, Eyesight Changes, Pain Increased, Urine Color Change, Constipation(Persistent), Fever over 101 degree F, Pain/Pressure in chest, Urinating Difficulty, Cough Up/Vomit Blood, Heart Beat Irreg/Pounding, Pain/ Pressure in jaw, Cramps in feet or legs, Lightheadedness, Pain/Pressure in shoulder, Diarrhea(Persistent), Memory Changes Suddenly, Questions/Concerns, Weight gain consecutive days, Dizziness/Fainting, Nausea/Vomiting, Shortness of Breath, Weight gain over 2 pounds If questions or concerns contact your physician Or seek help at emergency department. Activity Activity as Tolerated: Yes Activity Instructions: Avoid Stress to Incision Driving Instructions: No Driving/Refer to Dr. Colby Discharge Diet: No Restrictions Diet After 24 Hours: Clear Liquid if Nauseous If Any Problems/Questions/Issu: Contact Your Physician, Go to Emergency Room Skin/Wound Care Infection Signs and Symptoms: Increased Redness, Foul Odor of Wound, Increased Drainage, Skin Itchy or Has a Rash, Increased Swelling, Temperature Above 101 F Stitches/Terrell/Dermabond Dis: Dermabond Ice Pack: Ice On and Off Site (as needed for pain) MANAN DEWITT DO May 18, 2018 10:16
[2018-05-18 10:40] VITALS: BP 115/73
[2018-05-18 11:10] VITALS: BP 116/72
--- NOTE | 2018-05-18 11:33 | Diagnostic Imaging Report ---
INDICATION: Status post port placement. COMPARISON: 04/20/2018 FINDINGS: Single frontal radiographic view of the chest was obtained and demonstrates interval placement of left subclavian Port-A-Cath, tip of which terminates in the SVC. Lung garvey show no evidence of pleural effusion or pneumothorax on either side. Aeration is improved. Residual interstitial infiltrate and apparent opacities persist. Cardiac silhouette and pulmonary vasculature are within normal limits. Bony structures show no gross acute abnormalities. IMPRESSION: 1. New left-sided subclavian Port-A-Cath. No pneumothorax. 2. Improved aeration, but with residual infiltrate appearing opacities bilaterally. Dictated by: Dictated on workstation # [id number]
[2018-05-18 11:55] VITALS: BP 116/72
--- NOTE | 2018-05-18 12:29 | Diagnostic Imaging Report ---
INDICATION: Port-A-Cath placement FINDINGS: Two fluoroscopic view of the chest were obtained during Port-A-Cath placement in surgery. Port is visualized over the left chest with catheter entering the left subclavian vein and catheter tip overlying the mid SVC. The study is otherwise limited. Four seconds of fluoroscopy time was used in surgery. IMPRESSION: Intraoperative views demonstrate Port-A-Cath placement on the left-side, as above, the tip overlying the SVC. 4 seconds of fluoroscopy time was used. Dictated by: Dictated on workstation # [id number]
--- NOTE | 2018-05-18 13:31 | OPERATIVE REPORT ---
DATE OF SERVICE: PREOPERATIVE DIAGNOSES: Lung cancer, venous insufficiency. POSTOPERATIVE DIAGNOSES: Lung cancer, venous insufficiency. PROCEDURES: Port-A-Cath insertion, left anterior chest wall, left subclavian vein. SURGEON: Edison Frank DO. TALENT DEVELOPMENT ANALYST: None. ANESTHESIA: Local MAC. BLOOD LOSS: Scant. FLUIDS: Per anesthesia. SPECIMENS: None. POSTOPERATIVE CONDITION: Stable. INDICATION FOR PROCEDURE: The patient is a 58-year-old female who unfortunately recently diagnosed with lung cancer. She has venous insufficiency. We will need long-term access for chemotherapy. FINDINGS: The patient had a Port-A-Cath placed in left anterior chest wall, left subclavian vein. PROCEDURE NOTE: After informed consent was obtained, the patient was brought to the operating room, placed on the operating table in supine position. She was sterilely prepped and draped in normal fashion. Local lidocaine then used to infiltrate the left anterior chest wall as well as a direction towards the clavicle. Then, the patient placed slightly Trendelenburg and an 18-gauge finder needle was advanced using negative inspiration and cannulated the subclavian vein on the first attempt. Good flash of blood, removed the syringe, placed a guidewire down the needle using Seldinger technique, removed the needle, checked with fluoroscopy. The guidewire was in good position. I then made a stab incision along the guidewire with a #11 blade and then made an incision in left anterior chest wall with 11 blade, cut down to the skin into subcutaneous tissue, deepened down to subcutaneous tissue with Bovie electrocautery controlled bleeding with Bovie electrocautery and then created a pocket using blunt dissection then over the guidewire placed a dilator using Seldinger technique, it went in easily, checked position, was good position, tunneled the catheter from the stab incision into the pocket created by the port with the tunneling device and then removed the inner portion of the dilator as well as the guidewire and placed the catheter down the dilator sheath using the Seldinger technique, it went in easily, checked with fluoroscopy, it was in good position, removed that external dilator sheath and then attached the catheter to the Port-A-Cath and then attached the locking mechanism placed into the pocket and then accessed the port with the Rosado needle. Good flash of blood and then flushed with saline and then removed the syringe, placed heparin again, aspirated good flash of blood and then easily flushed with heparin 2 mL sutured this in place with 3-0 Prolene. took another picture with fluoroscopy. There was no kinking at the level of the catheter and port looked good and then closed the incision closing the deep subcutaneous tissue with 3-0 Vicryl, 2 interrupted suture, then closed the skin with 4-0 undyed Monocryl, interrupted subcuticular stitches. Area was cleaned and dried and Dermabond placed across the both incisions and then Band-Aid. The patient tolerated the procedure well. She was transferred to recovery room in stable condition. Sponge and needle count correct at the end of the case. Job ID: [id number] DocumentID: [id number] Dictated Date: 05/18/2018 10:10:09 Clinical Research Physician Date: 05/18/2018 13:30:29 Dictated By: EDISON FRANK DO
== END 2018-05-18 11:55 | disposition home or self-care (01) ==
LOC: SDC 07:25
PROVIDERS: ATTEND Surgery
DX: I87.2 Venous insufficiency (chronic) (peripheral) (principal); C34.31 Malignant neoplasm of lower lobe, right bronchus or lung; J44.9 Chronic obstructive pulmonary disease, unspecified; F17.210 Nicotine dependence, cigarettes, uncomplicated; F41.9 Anxiety disorder, unspecified; Z11.2 Encounter for screening for other bacterial diseases; Z79.899 Other long term (current) drug therapy
CPT/HCPCS: 71045; 87081; 94664

== ENCOUNTER → 2018-06-27 | Outpatient (CLI) | payer BC ==
[~2018-06-27] MED LIST changes: +HYDR-3812 PO; +IBUP-2055 PO
--- NOTE | 2018-06-27 19:19 | Diagnostic Imaging Report ---
INDICATION: Swelling and pain in the right neck. FINDINGS: Sonographic interrogation of the area of swelling demonstrates a solid mass measuring 1.9 x 1.8 x 2.4 cm. This is at the jaw line in the region of the submandibular gland. This demonstrates internal blood flow. IMPRESSION: Solid mass in the region of the right submandibular gland with internal blood flow. This could be better characterized with CT of the neck with contrast. Dictated by: Dictated on workstation # [id number]
== END ==
LOC: RAD 12:13
PROVIDERS: ATTEND Internal Medicine Hematology & Oncology
DX: R22.1 Localized swelling, mass and lump, neck (principal)
CPT/HCPCS: 76536

== ENCOUNTER → 2018-07-01 | Outpatient (CLI) | payer BC ==
[~2018-07-01] MED LIST changes: +CATHETER FLUSH 10 ML SYR IV PRN; +HOLD METFORMIN - RECEIVED CONTRAST 20 ML VIAL IV SCH; +IOHEXOL 350 MG/ML 100 ML (OMNIPAQUE 350) VIAL IV ONE
--- NOTE | 2018-07-01 17:47 | Diagnostic Imaging Report ---
INDICATION: History of lung cancer. Metastatic disease. Followup. COMPARISON: CT chest dated 04/14/[address]/PET dated 04/19/2018. TECHNIQUE: Routine postcontrast CT of the chest and neck was performed. Contrast was administered intravenously. Auto Exposure Controls were utilized during the CT exam to meet ALARA standards for radiation dose reduction. FINDINGS: CT NECK: There is peripherally enhancing, centrally hypoenhancing mass type lesion within the right submental region just anterior to the right submandibular gland. Lesion measures 1.7 x 2.3 cm in maximal axial dimension x 2.2 cm in CC dimension. This has increased in size compared to 5 mm in diameter on previous CT/PET dated 04/19/2018. Smaller adjacent peripheral satellite lymph node measures 4 mm (image 13, series 8). No other abnormal areas of postcontrast enhancement are identified. No other definite soft tissue masses are seen. No loculated fluid collections are identified. Deep spaces of the neck are unremarkable. There is no evidence of airway compromise. Included portions of posterior fossa are unremarkable. Osseous structures show age-related degenerative changes. No lytic or blastic bony lesions are seen. No acute fractures are identified. CT CHEST: Soft tissue spiculated mass is again identified within the posterior margins of the right lower lobe. It measures 2.1 x 2.7 cm on today's exam (image 44, series 7). This is decreased in size compared to 2.5 x 3.4 cm previously. Evaluation of the remainder of the lung garvey demonstrates subtle groundglass nodular density within the lateral margins of left upper lobe measuring approximately 1 cm (image 12, series 7). This is stable compared to prior exam. Note is also made of background of mild emphysematous disease. There is no new focal consolidation, large effusion, nor pneumothorax. Enlarged right hilar and subcarinal lymph nodes are also again identified. Right perihilar lymph node measures 2.2 x 1.6 cm on today's exam. This is stable compared to 2.2 x 1.7 cm previously. Subcarinal lymph node measures 2.9 x 2.3 cm on today's exam. This however is slightly increased in size compared to 2.5 x 1.7 cm previously. A few other smaller mediastinal lymph nodes are again noted and appear stable. Prominent right axillary lymph node measures 1.8 x 1.6 cm on today's study (image 9, series 7). This is increased in size compared to 1.3 x 1.5 cm previously. Heart size remains within normal limits. There is no large pericardial effusion. There is mild scattered calcified aortic atherosclerosis. Bony structures show no acute abnormalities. Included portions of the upper abdomen are unremarkable. IMPRESSION: 1. Since the previous exam, there has been mixed interval change. The dominant lesion within the posterior right lower lobe shows interval decrease in size and the prominent right perihilar lymph node is stable. However, there has been interval increase in size of subcarinal lymph node and submental mass within the neck. Right axillary lymph node is also slightly increased in size. 2. Background mild emphysematous disease. Dictated by: Dictated on workstation # [id number]
== END ==
LOC: RAD 16:17
PROVIDERS: ATTEND Internal Medicine Hematology & Oncology
DX: C34.31 Malignant neoplasm of lower lobe, right bronchus or lung (principal); C77.3 Secondary and unspecified malignant neoplasm of axilla and upper limb lymph nodes; J43.9 Emphysema, unspecified
CPT/HCPCS: 70491; 71260

== ENCOUNTER → 2018-07-13 | Outpatient (CLI) | payer BC ==
[~2018-07-13] VITALS: Ht 160 cm; Wt 55.3 kg
[~2018-07-13] MED LIST changes: -CATHETER FLUSH 10 ML SYR IV PRN; -HOLD METFORMIN - RECEIVED CONTRAST 20 ML VIAL IV SCH; -IOHEXOL 350 MG/ML 100 ML (OMNIPAQUE 350) VIAL IV ONE; +LIDOCAINE 1% INJ 20 ML 20 ML VIAL INJ ONE
--- NOTE | 2018-07-13 13:21 | Diagnostic Imaging Report ---
INDICATION: Enlarged right neck submandibular lymph node. Patient presents for a guided biopsy. Patient was brought to the procedure room and placed on the bed in a supine position with the head turned to the left. Ultrasound imaging over the right submandibular region was performed to evaluate appropriate entry site. The right neck was then prepped and draped in usual sterile fashion. Small amount of 1% lidocaine was utilized for local anesthesia. 18-gauge Temno needle was advanced into the enlarged lymph node in the right submandibular location. Total of 4 core biopsies were obtained. Hemostasis was obtained using manual compression. Patient tolerated the procedure well. IMPRESSION: Successful ultrasound guided core biopsy of the enlarged right submandibular lymph node. Pathology results are currently pending. Dictated by: Dictated on workstation # [id number]
== END ==
LOC: RAD 10:02
PROVIDERS: ATTEND Internal Medicine Hematology & Oncology
DX: C79.89 Secondary malignant neoplasm of other specified sites (principal); C34.31 Malignant neoplasm of lower lobe, right bronchus or lung
CPT/HCPCS: 76942; 88305

== ENCOUNTER 2018-07-22 08:00 | Outpatient (RCR) | payer BC ==
[2018-05-11 10:15] LABS: BASOPHILS # (AUTO) 0.1 10^3/uL (0.0-0.1); BASOPHILS % (AUTO) 1 % (0-10); EOSINOPHILS # (AUTO) 0.1 10^3/uL (0.0-0.3); EOSINOPHILS % (AUTO) 2 % (0-10); HEMATOCRIT 38 % (35-52); HEMOGLOBIN 12.3 G/DL (11.5-16.0); LYMPHOCYTES # (AUTO) 1.8 X 10^3 (1.0-4.0); LYMPHOCYTES % (AUTO) 23 % (12-44); MEAN CORPUSCULAR HEMOGLOBIN 29 PG (25-34); MEAN CORPUSCULAR HGB CONC 32 G/DL (32-36); MEAN CORPUSCULAR VOLUME 91 FL (80-99); MEAN PLATELET VOLUME 9.2 FL (7.4-10.4); MONOCYTES # (AUTO) 0.4 X 10^3 (0.0-1.0); MONOCYTES % (AUTO) 5 % (0-12); NEUTROPHILS # (AUTO) 5.6 X 10^3 (1.8-7.8); NEUTROPHILS % (AUTO) 70 % (42-75); PLATELET COUNT 481 10^3/uL (130-400); RED CELL DISTRIBUTION WIDTH 13.3 % (10.0-14.5); WHITE BLOOD COUNT 8.1 10^3/uL (4.3-11.0)
[2018-05-11 10:34] LABS: ALANINE AMINOTRANSFERASE 7 U/L (0-55); ALBUMIN 3.9 GM/DL (3.2-4.5); ALKALINE PHOSPHATASE 99 U/L (40-136); BILIRUBIN,TOTAL 0.2 MG/DL (0.1-1.0); BUN/CREATININE RATIO 20; CALCIUM 9.3 MG/DL (8.5-10.1); CARBON DIOXIDE 22 MMOL/L (21-32); CHLORIDE 107 MMOL/L (98-107); CREATININE SERUM 0.65 MG/DL (0.60-1.30); GFR ESTIMATED > 60; GLUCOSE 99 MG/DL (70-105); POTASSIUM 4.2 MMOL/L (3.6-5.0); SODIUM 139 MMOL/L (135-145)
[2018-06-01 10:34] LABS: BASOPHILS # (AUTO) 0.1 10^3/uL (0.0-0.1); BASOPHILS % (AUTO) 0 % (0-10); EOSINOPHILS # (AUTO) 0.1 10^3/uL (0.0-0.3); EOSINOPHILS % (AUTO) 0 % (0-10); HEMATOCRIT 37 % (35-52); HEMOGLOBIN 11.5 G/DL (11.5-16.0); LYMPHOCYTES # (AUTO) 0.8 X 10^3 (1.0-4.0); LYMPHOCYTES % (AUTO) 5 % (12-44); MEAN CORPUSCULAR HEMOGLOBIN 29 PG (25-34); MEAN CORPUSCULAR HGB CONC 31 G/DL (32-36); MEAN CORPUSCULAR VOLUME 91 FL (80-99); MEAN PLATELET VOLUME 9.1 FL (7.4-10.4); MONOCYTES # (AUTO) 0.3 X 10^3 (0.0-1.0); MONOCYTES % (AUTO) 2 % (0-12); NEUTROPHILS # (AUTO) 13.8 X 10^3 (1.8-7.8); NEUTROPHILS % (AUTO) 92 % (42-75); PLATELET COUNT 445 10^3/uL (130-400)
[2018-06-01 10:50] LABS: ALANINE AMINOTRANSFERASE 6 U/L (0-55); ALBUMIN 3.9 GM/DL (3.2-4.5); ALKALINE PHOSPHATASE 99 U/L (40-136); BILIRUBIN,TOTAL 0.2 MG/DL (0.1-1.0); BUN/CREATININE RATIO 25; CALCIUM 9.3 MG/DL (8.5-10.1); CARBON DIOXIDE 22 MMOL/L (21-32); CHLORIDE 109 MMOL/L (98-107); CREATININE SERUM 0.75 MG/DL (0.60-1.30); GFR ESTIMATED > 60; GLUCOSE 125 MG/DL (70-105); SODIUM 138 MMOL/L (135-145); TOTAL PROTEIN 6.6 GM/DL (6.4-8.2)
[2018-06-08 08:16] LABS: BASOPHILS # (AUTO) 0.1 10^3/uL (0.0-0.1); BASOPHILS % (AUTO) 2 % (0-10); EOSINOPHILS # (AUTO) 0.2 10^3/uL (0.0-0.3); EOSINOPHILS % (AUTO) 4 % (0-10); HEMATOCRIT 37 % (35-52); HEMOGLOBIN 11.6 G/DL (11.5-16.0); LYMPHOCYTES # (AUTO) 1.1 X 10^3 (1.0-4.0); LYMPHOCYTES % (AUTO) 27 % (12-44); MEAN CORPUSCULAR HEMOGLOBIN 28 PG (25-34); MEAN CORPUSCULAR HGB CONC 32 G/DL (32-36); MEAN CORPUSCULAR VOLUME 90 FL (80-99); MEAN PLATELET VOLUME 9.2 FL (7.4-10.4); MONOCYTES # (AUTO) 0.3 X 10^3 (0.0-1.0); MONOCYTES % (AUTO) 8 % (0-12); NEUTROPHILS # (AUTO) 2.5 X 10^3 (1.8-7.8); NEUTROPHILS % (AUTO) 59 % (42-75); PLATELET COUNT 319 10^3/uL (130-400); RED CELL DISTRIBUTION WIDTH 13.6 % (10.0-14.5); WHITE BLOOD COUNT 4.2 10^3/uL (4.3-11.0)
[2018-06-08 08:40] LABS: BUN/CREATININE RATIO 23; CALCIUM 8.9 MG/DL (8.5-10.1); CARBON DIOXIDE 24 MMOL/L (21-32); CHLORIDE 108 MMOL/L (98-107); CREATININE SERUM 0.65 MG/DL (0.60-1.30); GFR ESTIMATED > 60; GLUCOSE 97 MG/DL (70-105); POTASSIUM 3.8 MMOL/L (3.6-5.0); SODIUM 140 MMOL/L (135-145)
[2018-06-15 09:51] LABS: BASOPHILS % (AUTO) 1 % (0-10); EOSINOPHILS # (AUTO) 0.1 10^3/uL (0.0-0.3); EOSINOPHILS % (AUTO) 1 % (0-10); HEMATOCRIT 36 % (35-52); HEMOGLOBIN 11.4 G/DL (11.5-16.0); LYMPHOCYTES # (AUTO) 1.4 X 10^3 (1.0-4.0); LYMPHOCYTES % (AUTO) 25 % (12-44); MEAN CORPUSCULAR HEMOGLOBIN 29 PG (25-34); MEAN CORPUSCULAR HGB CONC 32 G/DL (32-36); MEAN CORPUSCULAR VOLUME 91 FL (80-99); MEAN PLATELET VOLUME 8.8 FL (7.4-10.4); MONOCYTES # (AUTO) 0.4 X 10^3 (0.0-1.0); MONOCYTES % (AUTO) 8 % (0-12); NEUTROPHILS # (AUTO) 3.6 X 10^3 (1.8-7.8); NEUTROPHILS % (AUTO) 65 % (42-75); PLATELET COUNT 394 10^3/uL (130-400); RED CELL DISTRIBUTION WIDTH 14.2 % (10.0-14.5); WHITE BLOOD COUNT 5.6 10^3/uL (4.3-11.0)
[2018-06-15 10:10] LABS: BUN/CREATININE RATIO 20; CALCIUM 9.5 MG/DL (8.5-10.1); CARBON DIOXIDE 26 MMOL/L (21-32); CHLORIDE 105 MMOL/L (98-107); CREATININE SERUM 0.65 MG/DL (0.60-1.30); GFR ESTIMATED > 60; GLUCOSE 98 MG/DL (70-105); POTASSIUM 4.9 MMOL/L (3.6-5.0); SODIUM 139 MMOL/L (135-145)
[2018-06-23 10:15] LABS: BASOPHILS % (AUTO) 1 % (0-10); EOSINOPHILS % (AUTO) 1 % (0-10); HEMATOCRIT 34 % (35-52); HEMOGLOBIN 10.8 G/DL (11.5-16.0); LYMPHOCYTES # (AUTO) 1.1 X 10^3 (1.0-4.0); LYMPHOCYTES % (AUTO) 19 % (12-44); MEAN CORPUSCULAR HEMOGLOBIN 29 PG (25-34); MEAN CORPUSCULAR HGB CONC 32 G/DL (32-36); MEAN CORPUSCULAR VOLUME 91 FL (80-99); MEAN PLATELET VOLUME 8.4 FL (7.4-10.4); MONOCYTES # (AUTO) 0.3 X 10^3 (0.0-1.0); MONOCYTES % (AUTO) 5 % (0-12); NEUTROPHILS # (AUTO) 4.4 X 10^3 (1.8-7.8); NEUTROPHILS % (AUTO) 74 % (42-75); PLATELET COUNT 458 10^3/uL (130-400); RED CELL DISTRIBUTION WIDTH 15.5 % (10.0-14.5); WHITE BLOOD COUNT 5.9 10^3/uL (4.3-11.0)
[2018-06-23 10:35] LABS: ALANINE AMINOTRANSFERASE 24 U/L (0-55); ALBUMIN 4.1 GM/DL (3.2-4.5); ALKALINE PHOSPHATASE 107 U/L (40-136); BILIRUBIN,TOTAL 0.2 MG/DL (0.1-1.0); BUN/CREATININE RATIO 19; CALCIUM 9.5 MG/DL (8.5-10.1); CARBON DIOXIDE 24 MMOL/L (21-32); CHLORIDE 105 MMOL/L (98-107); CREATININE SERUM 0.74 MG/DL (0.60-1.30); GFR ESTIMATED > 60; GLUCOSE 102 MG/DL (70-105); POTASSIUM 4.4 MMOL/L (3.6-5.0); SODIUM 137 MMOL/L (135-145)
[2018-07-01 16:29] LABS: BASOPHILS # (AUTO) 0.1 10^3/uL (0.0-0.1); BASOPHILS % (AUTO) 1 % (0-10); EOSINOPHILS # (AUTO) 0.1 10^3/uL (0.0-0.3); EOSINOPHILS % (AUTO) 2 % (0-10); HEMATOCRIT 33 % (35-52); HEMOGLOBIN 10.6 G/DL (11.5-16.0); LYMPHOCYTES # (AUTO) 1.3 X 10^3 (1.0-4.0); LYMPHOCYTES % (AUTO) 34 % (12-44); MEAN CORPUSCULAR HEMOGLOBIN 29 PG (25-34); MEAN CORPUSCULAR HGB CONC 32 G/DL (32-36); MEAN CORPUSCULAR VOLUME 89 FL (80-99); MONOCYTES # (AUTO) 0.4 X 10^3 (0.0-1.0); MONOCYTES % (AUTO) 9 % (0-12); NEUTROPHILS % (AUTO) 54 % (42-75); PLATELET COUNT 262 10^3/uL (130-400); RED CELL DISTRIBUTION WIDTH 14.6 % (10.0-14.5); WHITE BLOOD COUNT 3.8 10^3/uL (4.3-11.0)
[2018-07-01 16:42] LABS: BUN/CREATININE RATIO 25; CALCIUM 9.2 MG/DL (8.5-10.1); CARBON DIOXIDE 25 MMOL/L (21-32); CHLORIDE 108 MMOL/L (98-107); CREATININE SERUM 0.69 MG/DL (0.60-1.30); GFR ESTIMATED > 60; GLUCOSE 83 MG/DL (70-105); POTASSIUM 4.1 MMOL/L (3.6-5.0); SODIUM 142 MMOL/L (135-145)
[2018-07-08 10:13] LABS: BASOPHILS % (AUTO) 1 % (0-10); EOSINOPHILS # (AUTO) 0.1 10^3/uL (0.0-0.3); EOSINOPHILS % (AUTO) 3 % (0-10); HEMATOCRIT 34 % (35-52); HEMOGLOBIN 11.2 G/DL (11.5-16.0); LYMPHOCYTES # (AUTO) 1.4 X 10^3 (1.0-4.0); LYMPHOCYTES % (AUTO) 32 % (12-44); MEAN CORPUSCULAR HEMOGLOBIN 30 PG (25-34); MEAN CORPUSCULAR HGB CONC 33 G/DL (32-36); MEAN CORPUSCULAR VOLUME 91 FL (80-99); MEAN PLATELET VOLUME 9.3 FL (7.4-10.4); MONOCYTES # (AUTO) 0.4 X 10^3 (0.0-1.0); MONOCYTES % (AUTO) 9 % (0-12); NEUTROPHILS # (AUTO) 2.3 X 10^3 (1.8-7.8); NEUTROPHILS % (AUTO) 55 % (42-75); PLATELET COUNT 256 10^3/uL (130-400); RED CELL DISTRIBUTION WIDTH 15.2 % (10.0-14.5); WHITE BLOOD COUNT 4.3 10^3/uL (4.3-11.0)
[2018-07-08 10:31] LABS: ALANINE AMINOTRANSFERASE 19 U/L (0-55); ALKALINE PHOSPHATASE 108 U/L (40-136); BILIRUBIN,TOTAL 0.2 MG/DL (0.1-1.0); BUN/CREATININE RATIO 27; CALCIUM 9.1 MG/DL (8.5-10.1); CARBON DIOXIDE 21 MMOL/L (21-32); CHLORIDE 107 MMOL/L (98-107); CREATININE SERUM 0.71 MG/DL (0.60-1.30); GFR ESTIMATED > 60; GLUCOSE 99 MG/DL (70-105); POTASSIUM 4.4 MMOL/L (3.6-5.0); SODIUM 140 MMOL/L (135-145); TOTAL PROTEIN 6.9 GM/DL (6.4-8.2)
[2018-07-15 09:39] LABS: BASOPHILS # (AUTO) 0.1 10^3/uL (0.0-0.1); BASOPHILS % (AUTO) 1 % (0-10); EOSINOPHILS # (AUTO) 0.1 10^3/uL (0.0-0.3); EOSINOPHILS % (AUTO) 2 % (0-10); HEMATOCRIT 33 % (35-52); LYMPHOCYTES % (AUTO) 16 % (12-44); MEAN CORPUSCULAR HEMOGLOBIN 30 PG (25-34); MEAN CORPUSCULAR HGB CONC 33 G/DL (32-36); MEAN CORPUSCULAR VOLUME 92 FL (80-99); MEAN PLATELET VOLUME 8.1 FL (7.4-10.4); MONOCYTES # (AUTO) 0.5 X 10^3 (0.0-1.0); MONOCYTES % (AUTO) 7 % (0-12); NEUTROPHILS # (AUTO) 4.7 X 10^3 (1.8-7.8); NEUTROPHILS % (AUTO) 74 % (42-75); PLATELET COUNT 641 10^3/uL (130-400); RED CELL DISTRIBUTION WIDTH 17.6 % (10.0-14.5); WHITE BLOOD COUNT 6.4 10^3/uL (4.3-11.0)
[2018-07-15 09:54] LABS: ALANINE AMINOTRANSFERASE 13 U/L (0-55); ALBUMIN 4.1 GM/DL (3.2-4.5); ALKALINE PHOSPHATASE 108 U/L (40-136); BILIRUBIN,TOTAL 0.2 MG/DL (0.1-1.0); BUN/CREATININE RATIO 28; CALCIUM 9.9 MG/DL (8.5-10.1); CARBON DIOXIDE 23 MMOL/L (21-32); CHLORIDE 109 MMOL/L (98-107); CREATININE SERUM 0.74 MG/DL (0.60-1.30); GFR ESTIMATED > 60; GLUCOSE 108 MG/DL (70-105); POTASSIUM 3.9 MMOL/L (3.6-5.0); SODIUM 142 MMOL/L (135-145); TOTAL PROTEIN 7.1 GM/DL (6.4-8.2)
[~2018-07-22] VITALS: Ht 160 cm; Wt 56.2 kg
[~2018-07-22 08:00] MED LIST changes: +CARBOPLATIN IV SCH; +CATHETER FLUSH 10 ML SYR IV PRN; +CYANOCOBALAMIN INJ 1000 MCG/ML (CANCER CENTER) IM NR; +CYANOCOBALAMIN INJ 1000 MCG/ML (CANCER CENTER) ONE; +D5W IV SCH; +FOSAPREPITANT DIMEGLUMINE 150 MG in NS (IVPB) CANCER CENTER ONLY 150 ML IV SCH; +HOLD METFORMIN - RECEIVED CONTRAST 20 ML VIAL IV SCH; +IOHEXOL 350 MG/ML 100 ML (OMNIPAQUE 350) VIAL IV ONE; -LIDOCAINE 1% INJ 20 ML 20 ML VIAL INJ ONE; +NS IV 1000 ML (CANCER CTR) IV SCH; +NS IV SCH; +PALONOSETRON HCL 0.25 MG, DEXAMETHASONE INJECTION 10 MG in NS (IVPB) CANCER CENTER 50 ML IV SCH; +PEMBROLIZUMAB IV SCH; +PEMETREXED DISODIUM IV SCH; +[UNRECOGNIZED DRUG - OTHER] IV SCH
[2018-07-22 08:30] LABS: BASOPHILS % (AUTO) 1 % (0-10); EOSINOPHILS # (AUTO) 0.1 10^3/uL (0.0-0.3); EOSINOPHILS % (AUTO) 3 % (0-10); HEMATOCRIT 31 % (35-52); HEMOGLOBIN 10.3 G/DL (11.5-16.0); LYMPHOCYTES # (AUTO) 1.1 X 10^3 (1.0-4.0); LYMPHOCYTES % (AUTO) 37 % (12-44); MEAN CORPUSCULAR HEMOGLOBIN 31 PG (25-34); MEAN CORPUSCULAR HGB CONC 34 G/DL (32-36); MEAN CORPUSCULAR VOLUME 91 FL (80-99); MEAN PLATELET VOLUME 8.2 FL (7.4-10.4); MONOCYTES # (AUTO) 0.3 X 10^3 (0.0-1.0); MONOCYTES % (AUTO) 11 % (0-12); NEUTROPHILS # (AUTO) 1.4 X 10^3 (1.8-7.8); NEUTROPHILS % (AUTO) 48 % (42-75); PLATELET COUNT 333 10^3/uL (130-400); RED CELL DISTRIBUTION WIDTH 15.8 % (10.0-14.5); WHITE BLOOD COUNT 2.9 10^3/uL (4.3-11.0)
[2018-07-22 08:47] LABS: BUN/CREATININE RATIO 24; CALCIUM 9.4 MG/DL (8.5-10.1); CARBON DIOXIDE 19 MMOL/L (21-32); CHLORIDE 103 MMOL/L (98-107); CREATININE SERUM 0.68 MG/DL (0.60-1.30); GFR ESTIMATED > 60; GLUCOSE 108 MG/DL (70-105); POTASSIUM 4.1 MMOL/L (3.6-5.0); SODIUM 136 MMOL/L (135-145)
[2018-07-28 09:39] LABS: BASOPHILS % (AUTO) 0 % (0-10); EOSINOPHILS # (AUTO) 0.1 10^3/uL (0.0-0.3); EOSINOPHILS % (AUTO) 3 % (0-10); HEMATOCRIT 34 % (35-52); HEMOGLOBIN 11.1 G/DL (11.5-16.0); LYMPHOCYTES # (AUTO) 1.3 X 10^3 (1.0-4.0); LYMPHOCYTES % (AUTO) 24 % (12-44); MEAN CORPUSCULAR HEMOGLOBIN 30 PG (25-34); MEAN CORPUSCULAR HGB CONC 33 G/DL (32-36); MEAN CORPUSCULAR VOLUME 92 FL (80-99); MEAN PLATELET VOLUME 9.2 FL (7.4-10.4); MONOCYTES # (AUTO) 0.4 X 10^3 (0.0-1.0); MONOCYTES % (AUTO) 7 % (0-12); NEUTROPHILS # (AUTO) 3.6 X 10^3 (1.8-7.8); NEUTROPHILS % (AUTO) 66 % (42-75); PLATELET COUNT 202 10^3/uL (130-400); RED CELL DISTRIBUTION WIDTH 16.3 % (10.0-14.5); WHITE BLOOD COUNT 5.5 10^3/uL (4.3-11.0)
[2018-07-28 09:56] LABS: BUN/CREATININE RATIO 17; CARBON DIOXIDE 23 MMOL/L (21-32); CHLORIDE 109 MMOL/L (98-107); CREATININE SERUM 0.72 MG/DL (0.60-1.30); GFR ESTIMATED > 60; GLUCOSE 106 MG/DL (70-105); POTASSIUM 4.4 MMOL/L (3.6-5.0); SODIUM 144 MMOL/L (135-145)
== END 2018-07-26 | disposition home or self-care (01) ==
LOC: ONC 08:00
PROVIDERS: ATTEND Internal Medicine Hematology & Oncology
DX: Z51.11 Encounter for antineoplastic chemotherapy (principal); C34.31 Malignant neoplasm of lower lobe, right bronchus or lung; C77.0 Secondary and unspecified malignant neoplasm of lymph nodes of head, face and neck; C77.1 Secondary and unspecified malignant neoplasm of intrathoracic lymph nodes; C77.3 Secondary and unspecified malignant neoplasm of axilla and upper limb lymph nodes; J44.9 Chronic obstructive pulmonary disease, unspecified; F17.210 Nicotine dependence, cigarettes, uncomplicated; Z79.899 Other long term (current) drug therapy
CPT/HCPCS: 36415; 36591; 80048; 80053; 85025; 96367; 96372; 96375; 96411; 96413; 96417; 99213; 99214

== ENCOUNTER → 2018-09-29 | Outpatient (CLI) | payer BC ==
[~2018-09-29] MED LIST changes: -CARBOPLATIN IV SCH; -CATHETER FLUSH 10 ML SYR IV PRN; -CYANOCOBALAMIN INJ 1000 MCG/ML (CANCER CENTER) IM NR; -CYANOCOBALAMIN INJ 1000 MCG/ML (CANCER CENTER) ONE; -D5W IV SCH; -FOSAPREPITANT DIMEGLUMINE 150 MG in NS (IVPB) CANCER CENTER ONLY 150 ML IV SCH; -HOLD METFORMIN - RECEIVED CONTRAST 20 ML VIAL IV SCH; -IOHEXOL 350 MG/ML 100 ML (OMNIPAQUE 350) VIAL IV ONE; -NS IV 1000 ML (CANCER CTR) IV SCH; -NS IV SCH; -PALONOSETRON HCL 0.25 MG, DEXAMETHASONE INJECTION 10 MG in NS (IVPB) CANCER CENTER 50 ML IV SCH; -PEMBROLIZUMAB IV SCH; -PEMETREXED DISODIUM IV SCH; -[UNRECOGNIZED DRUG - OTHER] IV SCH
--- NOTE | 2018-09-29 12:02 | Diagnostic Imaging Report ---
INDICATION: Lung carcinoma with metastases. TECHNIQUE: Pre-and postcontrast axial imaging of the abdomen and pelvis was performed with postcontrast axial imaging of the neck and chest. COMPARISON: Correlation is made with prior CT of the neck and chest on 07/01/2018. No prior CT abdomen and pelvis study is available for comparison. FINDINGS: CT neck: The visualized intracranial structures are unremarkable. Previously noted peripherally-enhancing necrotic-appearing lymph node in the right submental region has significantly reduced in size, now measuring approximately 1.3 x 0.8 cm compared with 2.4 x 1.7 cm. Tiny satellite node just anterior to this is stable at 4 mm. Jugulodigastric and posterior cervical regions are unremarkable. The parotid and submandibular glands are symmetric bilaterally. No definite thyroid mass is detected. There are no fluid collections identified. IMPRESSION: Significant decrease in size of necrotic right submental lymph node when compared with exam from 07/01/2018. No new cervical lymphadenopathy or mass is detected. CT chest: Previously noted enlarged right axillary lymph node has decreased in size, now measuring 0.9 x 1.2 cm compared with 1.6 x 1.8 cm on prior. Left axilla is unremarkable. Subcarinal lymphadenopathy measures 2.1 x 2.9 cm compared with 2.3 x 2.9 cm on prior. Right hilar lymphadenopathy measures approximately 1.7 x 2.0 cm compared with 1.6 x 2.2 cm. Mildly prominent nodes in AP window and precarinal region appear to be stable. No pericardial or pleural fluid is identified. Spiculated mass in posterior right lower lobe demonstrates some decrease in size measuring 2.3 x 1.9 cm compared with 2.7 x 2.1 cm on prior. No new parenchymal mass is detected. Minimal ground-glass density in the lateral left upper lobe is stable. IMPRESSION: 1. Decrease in size of spiculated right lower lobe mass as well as slight decrease in size of mediastinal and right hilar lymphadenopathy when compared with prior chest CT from 07/01/2018. No new abnormality is detected. CT abdomen and pelvis: No discrete liver mass is identified. The gallbladder is unremarkable. No biliary ductal dilatation is seen. Pancreas and spleen are unremarkable. Right adrenal gland is unremarkable. There has been interval development of some enlargement to the left adrenal gland, which does contain a mass measuring 2.7 x 1.8 cm. The kidneys are unremarkable apart from a lesion arising from the posterior aspect of the left kidney measuring 1.8 cm. This does appear to enhance, suggestive of a solid lesion. Aorta is nonaneurysmal. Large bowel does contain a large amount of colon consistent with constipation. There is no bowel obstruction. Small bowel loops are normal caliber. There is no ascites. No definite central, retroperitoneal or mesenteric lymphadenopathy is identified. The bladder is unremarkable. No pelvic lymphadenopathy is seen. Bony structures are not acute. There are severe degenerative changes at the T12-L1 level. IMPRESSION: 1. Interval development of left adrenal mass, suspicious for metastatic disease. 2. Left renal mass, suggestive of a solid mass. Renal cell carcinoma cannot be entirely excluded. 3. Moderate stool throughout the colon consistent with constipation. Dictated by: Dictated on workstation # [id number]
== END ==
LOC: RAD 10:00
PROVIDERS: ATTEND Internal Medicine Hematology & Oncology
DX: C34.90 Malignant neoplasm of unspecified part of unspecified bronchus or lung (principal); C77.3 Secondary and unspecified malignant neoplasm of axilla and upper limb lymph nodes; E27.8 Other specified disorders of adrenal gland; N28.89 Other specified disorders of kidney and ureter
CPT/HCPCS: 70491; 71260; 74178

== ENCOUNTER 2018-10-11 08:14 | Outpatient (CLI) | payer BC ==
[2018-10-11] VITALS (11 sets, daily range): BP systolic 92–119; BP diastolic 62–82
[~2018-10-11] VITALS: Ht 160 cm; Wt 55.3 kg
[2018-10-11] MEDS ORDERED: NS IV 1000 ML 1,000 ML IV STA (08:22)
[2018-10-11] MEDS ORDERED: fentaNYL INJECTION 100 MCG/2 ML AMP IVP ONE (08:30)
[2018-10-11] MEDS ORDERED: MIDAZOLAM 2 MG/2 ML (VERSED) VIAL IVP ONE (08:30)
[2018-10-11] MEDS ORDERED: LIDOCAINE 1% INJ 20 ML 20 ML VIAL INJ ONE (08:30)
[2018-10-11 09:00] LABS: HEMOGLOBIN 9.1 G/DL (11.5-16.0); MEAN PLATELET VOLUME 8.9 FL (7.4-10.4); RED CELL DISTRIBUTION WIDTH 15.1 % (10.0-14.5); WHITE BLOOD COUNT 3.5 10^3/uL (4.3-11.0)
[2018-10-11 09:13] LABS: PROTHROMBIN TIME PATIENT 13.6 SEC (12.2-14.7)
[2018-10-11] MEDS ORDERED: HYDROcodone/APAP 5 MG/325 MG (LORTAB) TAB PO PRN (11:00)
--- NOTE | 2018-10-11 11:45 | Diagnostic Imaging Report ---
INDICATION: Lung cancer and left adrenal mass. TECHNIQUE AND FINDINGS: After explaining the risks, benefits, and alternatives of the procedure to the patient, written consent was obtained. The patient was placed on the CT scanner in the prone position. Conscious sedation was performed with 25 mcg of fentanyl and 1 mg of Versed. A preliminary CT scan was obtained for localization purposes. The patient's left back was prepped and draped utilizing maximal sterile barrier technique. Local anesthesia was obtained with 2% lidocaine. A 20-gauge Temno needle was advanced into the left adrenal gland under CT guidance. Approximately four core biopsy specimens were obtained. The needle was removed and adequate hemostasis was obtained. The patient tolerated the procedure well and left the Department in stable condition. IMPRESSION: Successful CT-guided biopsy of a left adrenal mass as described. Dictated by: Dictated on workstation # [id number]
--- NOTE | 2018-10-11 12:25 | NUR ---
DISCHARGE INSTRUCTIONS WENT OVER WITH THE PATIENT AND HER . NO SIGNS OF BLEEDING. DENIES ANY PAIN OR DISCOMFORT.
== END 2018-10-11 12:29 | disposition home or self-care (01) ==
LOC: SDC 08:14
PROVIDERS: ATTEND Internal Medicine Hematology & Oncology
DX: C34.31 Malignant neoplasm of lower lobe, right bronchus or lung (principal); C77.3 Secondary and unspecified malignant neoplasm of axilla and upper limb lymph nodes; C79.72 Secondary malignant neoplasm of left adrenal gland; F17.210 Nicotine dependence, cigarettes, uncomplicated; Z79.899 Other long term (current) drug therapy
CPT/HCPCS: 36415; 77012; 85027; 85610; 85730; 99156

== ENCOUNTER 2018-10-21 08:58 | Outpatient (RCR) | payer BC ==
[2018-07-28 09:39] LABS: BASOPHILS % (AUTO) 0 % (0-10); EOSINOPHILS # (AUTO) 0.1 10^3/uL (0.0-0.3); EOSINOPHILS % (AUTO) 3 % (0-10); HEMATOCRIT 34 % (35-52); HEMOGLOBIN 11.1 G/DL (11.5-16.0); LYMPHOCYTES # (AUTO) 1.3 X 10^3 (1.0-4.0); LYMPHOCYTES % (AUTO) 24 % (12-44); MEAN CORPUSCULAR HEMOGLOBIN 30 PG (25-34); MEAN CORPUSCULAR HGB CONC 33 G/DL (32-36); MEAN CORPUSCULAR VOLUME 92 FL (80-99); MEAN PLATELET VOLUME 9.2 FL (7.4-10.4); MONOCYTES # (AUTO) 0.4 X 10^3 (0.0-1.0); MONOCYTES % (AUTO) 7 % (0-12); NEUTROPHILS # (AUTO) 3.6 X 10^3 (1.8-7.8); NEUTROPHILS % (AUTO) 66 % (42-75); PLATELET COUNT 202 10^3/uL (130-400); RED CELL DISTRIBUTION WIDTH 16.3 % (10.0-14.5); WHITE BLOOD COUNT 5.5 10^3/uL (4.3-11.0)
[2018-07-28 09:56] LABS: BUN/CREATININE RATIO 17; CARBON DIOXIDE 23 MMOL/L (21-32); CHLORIDE 109 MMOL/L (98-107); CREATININE SERUM 0.72 MG/DL (0.60-1.30); GFR ESTIMATED > 60; GLUCOSE 106 MG/DL (70-105); POTASSIUM 4.4 MMOL/L (3.6-5.0); SODIUM 144 MMOL/L (135-145)
[2018-08-05 09:41] LABS: BASOPHILS % (AUTO) 0 % (0-10); EOSINOPHILS # (AUTO) 0.1 10^3/uL (0.0-0.3); EOSINOPHILS % (AUTO) 1 % (0-10); HEMATOCRIT 34 % (35-52); HEMOGLOBIN 11.1 G/DL (11.5-16.0); LYMPHOCYTES # (AUTO) 1.4 X 10^3 (1.0-4.0); LYMPHOCYTES % (AUTO) 20 % (12-44); MEAN CORPUSCULAR HEMOGLOBIN 31 PG (25-34); MEAN CORPUSCULAR HGB CONC 33 G/DL (32-36); MEAN CORPUSCULAR VOLUME 95 FL (80-99); MEAN PLATELET VOLUME 8.3 FL (7.4-10.4); MONOCYTES # (AUTO) 0.5 X 10^3 (0.0-1.0); MONOCYTES % (AUTO) 7 % (0-12); NEUTROPHILS # (AUTO) 5.2 X 10^3 (1.8-7.8); NEUTROPHILS % (AUTO) 72 % (42-75); PLATELET COUNT 490 10^3/uL (130-400); WHITE BLOOD COUNT 7.2 10^3/uL (4.3-11.0)
[2018-08-05 09:59] LABS: ALANINE AMINOTRANSFERASE 12 U/L (0-55); ALKALINE PHOSPHATASE 99 U/L (40-136); BILIRUBIN,TOTAL 0.2 MG/DL (0.1-1.0); BUN/CREATININE RATIO 27; CALCIUM 9.9 MG/DL (8.5-10.1); CARBON DIOXIDE 21 MMOL/L (21-32); CHLORIDE 108 MMOL/L (98-107); CREATININE SERUM 0.75 MG/DL (0.60-1.30); GFR ESTIMATED > 60; GLUCOSE 105 MG/DL (70-105); POTASSIUM 4.1 MMOL/L (3.6-5.0); SODIUM 140 MMOL/L (135-145); TOTAL PROTEIN 6.9 GM/DL (6.4-8.2)
[2018-08-12 09:47] LABS: BASOPHILS # (AUTO) 0.1 10^3/uL (0.0-0.1); BASOPHILS % (AUTO) 1 % (0-10); EOSINOPHILS # (AUTO) 0.1 10^3/uL (0.0-0.3); EOSINOPHILS % (AUTO) 2 % (0-10); HEMATOCRIT 34 % (35-52); LYMPHOCYTES # (AUTO) 1.6 X 10^3 (1.0-4.0); LYMPHOCYTES % (AUTO) 34 % (12-44); MEAN CORPUSCULAR HEMOGLOBIN 32 PG (25-34); MEAN CORPUSCULAR HGB CONC 33 G/DL (32-36); MEAN CORPUSCULAR VOLUME 97 FL (80-99); MEAN PLATELET VOLUME 8.5 FL (7.4-10.4); MONOCYTES # (AUTO) 0.3 X 10^3 (0.0-1.0); MONOCYTES % (AUTO) 7 % (0-12); NEUTROPHILS # (AUTO) 2.7 X 10^3 (1.8-7.8); NEUTROPHILS % (AUTO) 57 % (42-75); PLATELET COUNT 343 10^3/uL (130-400); RED CELL DISTRIBUTION WIDTH 16.9 % (10.0-14.5); WHITE BLOOD COUNT 4.8 10^3/uL (4.3-11.0)
[2018-08-12 10:05] LABS: BUN/CREATININE RATIO 14; CALCIUM 8.8 MG/DL (8.5-10.1); CARBON DIOXIDE 19 MMOL/L (21-32); CHLORIDE 107 MMOL/L (98-107); CREATININE SERUM 0.69 MG/DL (0.60-1.30); GFR ESTIMATED > 60; GLUCOSE 85 MG/DL (70-105); SODIUM 139 MMOL/L (135-145)
[2018-08-19 10:07] LABS: BASOPHILS % (AUTO) 0 % (0-10); EOSINOPHILS # (AUTO) 0.2 10^3/uL (0.0-0.3); EOSINOPHILS % (AUTO) 3 % (0-10); HEMATOCRIT 29 % (35-52); HEMOGLOBIN 9.7 G/DL (11.5-16.0); LYMPHOCYTES # (AUTO) 1.5 X 10^3 (1.0-4.0); LYMPHOCYTES % (AUTO) 30 % (12-44); MEAN CORPUSCULAR HEMOGLOBIN 32 PG (25-34); MEAN CORPUSCULAR HGB CONC 33 G/DL (32-36); MEAN CORPUSCULAR VOLUME 96 FL (80-99); MEAN PLATELET VOLUME 9.6 FL (7.4-10.4); MONOCYTES # (AUTO) 0.4 X 10^3 (0.0-1.0); MONOCYTES % (AUTO) 9 % (0-12); NEUTROPHILS # (AUTO) 2.8 X 10^3 (1.8-7.8); NEUTROPHILS % (AUTO) 58 % (42-75); PLATELET COUNT 162 10^3/uL (130-400); RED CELL DISTRIBUTION WIDTH 17.1 % (10.0-14.5); WHITE BLOOD COUNT 4.9 10^3/uL (4.3-11.0)
[2018-08-19 10:27] LABS: BUN/CREATININE RATIO 19; CALCIUM 9.5 MG/DL (8.5-10.1); CARBON DIOXIDE 19 MMOL/L (21-32); CHLORIDE 113 MMOL/L (98-107); CREATININE SERUM 0.67 MG/DL (0.60-1.30); GFR ESTIMATED > 60; GLUCOSE 100 MG/DL (70-105); POTASSIUM 4.1 MMOL/L (3.6-5.0); SODIUM 142 MMOL/L (135-145)
[2018-08-26 11:02] LABS: BASOPHILS % (AUTO) 1 % (0-10); EOSINOPHILS % (AUTO) 1 % (0-10); HEMATOCRIT 28 % (35-52); HEMOGLOBIN 9.4 G/DL (11.5-16.0); LYMPHOCYTES # (AUTO) 0.7 X 10^3 (1.0-4.0); LYMPHOCYTES % (AUTO) 21 % (12-44); MEAN CORPUSCULAR HEMOGLOBIN 33 PG (25-34); MEAN CORPUSCULAR HGB CONC 33 G/DL (32-36); MEAN CORPUSCULAR VOLUME 100 FL (80-99); MEAN PLATELET VOLUME 8.5 FL (7.4-10.4); MONOCYTES # (AUTO) 0.2 X 10^3 (0.0-1.0); MONOCYTES % (AUTO) 7 % (0-12); NEUTROPHILS # (AUTO) 2.4 X 10^3 (1.8-7.8); NEUTROPHILS % (AUTO) 71 % (42-75); PLATELET COUNT 529 10^3/uL (130-400); RED CELL DISTRIBUTION WIDTH 18.9 % (10.0-14.5); WHITE BLOOD COUNT 3.4 10^3/uL (4.3-11.0)
[2018-08-26 11:19] LABS: ALANINE AMINOTRANSFERASE 11 U/L (0-55); ALKALINE PHOSPHATASE 93 U/L (40-136); BILIRUBIN,TOTAL 0.3 MG/DL (0.1-1.0); BUN/CREATININE RATIO 22; CARBON DIOXIDE 16 MMOL/L (21-32); CHLORIDE 111 MMOL/L (98-107); CREATININE SERUM 0.72 MG/DL (0.60-1.30); GFR ESTIMATED > 60; GLUCOSE 110 MG/DL (70-105); POTASSIUM 4.1 MMOL/L (3.6-5.0); SODIUM 140 MMOL/L (135-145); TOTAL PROTEIN 6.8 GM/DL (6.4-8.2)
[2018-09-02 09:43] LABS: BASOPHILS % (AUTO) 2 % (0-10); EOSINOPHILS # (AUTO) 0.1 10^3/uL (0.0-0.3); EOSINOPHILS % (AUTO) 7 % (0-10); HEMATOCRIT 28 % (35-52); HEMOGLOBIN 9.5 G/DL (11.5-16.0); LYMPHOCYTES # (AUTO) 1.1 X 10^3 (1.0-4.0); LYMPHOCYTES % (AUTO) 55 % (12-44); MEAN CORPUSCULAR HEMOGLOBIN 33 PG (25-34); MEAN CORPUSCULAR HGB CONC 34 G/DL (32-36); MEAN CORPUSCULAR VOLUME 98 FL (80-99); MEAN PLATELET VOLUME 8.6 FL (7.4-10.4); MONOCYTES # (AUTO) 0.2 X 10^3 (0.0-1.0); MONOCYTES % (AUTO) 9 % (0-12); NEUTROPHILS # (AUTO) 0.6 X 10^3 (1.8-7.8); NEUTROPHILS % (AUTO) 27 % (42-75); PLATELET COUNT 311 10^3/uL (130-400); WHITE BLOOD COUNT 2.1 10^3/uL (4.3-11.0)
[2018-09-02 09:59] LABS: BUN/CREATININE RATIO 23; CALCIUM 8.8 MG/DL (8.5-10.1); CARBON DIOXIDE 23 MMOL/L (21-32); CHLORIDE 111 MMOL/L (98-107); CREATININE SERUM 0.73 MG/DL (0.60-1.30); GFR ESTIMATED > 60; GLUCOSE 93 MG/DL (70-105); POTASSIUM 3.9 MMOL/L (3.6-5.0); SODIUM 142 MMOL/L (135-145)
[2018-09-09 10:51] LABS: BASOPHILS % (AUTO) 0 % (0-10); EOSINOPHILS # (AUTO) 0.4 10^3/uL (0.0-0.3); EOSINOPHILS % (AUTO) 9 % (0-10); HEMATOCRIT 30 % (35-52); HEMOGLOBIN 10.1 G/DL (11.5-16.0); LYMPHOCYTES # (AUTO) 1.5 X 10^3 (1.0-4.0); LYMPHOCYTES % (AUTO) 32 % (12-44); MEAN CORPUSCULAR HEMOGLOBIN 34 PG (25-34); MEAN CORPUSCULAR HGB CONC 34 G/DL (32-36); MEAN CORPUSCULAR VOLUME 98 FL (80-99); MEAN PLATELET VOLUME 9.6 FL (7.4-10.4); MONOCYTES # (AUTO) 0.4 X 10^3 (0.0-1.0); MONOCYTES % (AUTO) 9 % (0-12); NEUTROPHILS # (AUTO) 2.3 X 10^3 (1.8-7.8); NEUTROPHILS % (AUTO) 50 % (42-75); PLATELET COUNT 132 10^3/uL (130-400); RED CELL DISTRIBUTION WIDTH 16.1 % (10.0-14.5); WHITE BLOOD COUNT 4.6 10^3/uL (4.3-11.0)
[2018-09-09 11:05] LABS: BUN/CREATININE RATIO 14; CALCIUM 9.5 MG/DL (8.5-10.1); CARBON DIOXIDE 23 MMOL/L (21-32); CHLORIDE 108 MMOL/L (98-107); CREATININE SERUM 0.71 MG/DL (0.60-1.30); GFR ESTIMATED > 60; GLUCOSE 106 MG/DL (70-105); POTASSIUM 4.4 MMOL/L (3.6-5.0); SODIUM 137 MMOL/L (135-145)
[2018-09-15 08:15] LABS: BASOPHILS % (AUTO) 1 % (0-10); EOSINOPHILS # (AUTO) 0.1 10^3/uL (0.0-0.3); EOSINOPHILS % (AUTO) 2 % (0-10); HEMATOCRIT 26 % (35-52); HEMOGLOBIN 8.7 G/DL (11.5-16.0); LYMPHOCYTES # (AUTO) 0.9 X 10^3 (1.0-4.0); LYMPHOCYTES % (AUTO) 17 % (12-44); MEAN CORPUSCULAR HEMOGLOBIN 34 PG (25-34); MEAN CORPUSCULAR HGB CONC 33 G/DL (32-36); MEAN CORPUSCULAR VOLUME 104 FL (80-99); MEAN PLATELET VOLUME 8.6 FL (7.4-10.4); MONOCYTES # (AUTO) 0.4 X 10^3 (0.0-1.0); MONOCYTES % (AUTO) 7 % (0-12); NEUTROPHILS # (AUTO) 3.9 X 10^3 (1.8-7.8); NEUTROPHILS % (AUTO) 73 % (42-75); PLATELET COUNT 346 10^3/uL (130-400); RED CELL DISTRIBUTION WIDTH 17.2 % (10.0-14.5); WHITE BLOOD COUNT 5.3 10^3/uL (4.3-11.0)
[2018-09-15 08:35] LABS: ALANINE AMINOTRANSFERASE 12 U/L (0-55); ALBUMIN 3.8 GM/DL (3.2-4.5); ALKALINE PHOSPHATASE 93 U/L (40-136); BILIRUBIN,TOTAL 0.2 MG/DL (0.1-1.0); BUN/CREATININE RATIO 18; CALCIUM 8.8 MG/DL (8.5-10.1); CARBON DIOXIDE 18 MMOL/L (21-32); CHLORIDE 112 MMOL/L (98-107); CREATININE SERUM 0.77 MG/DL (0.60-1.30); GFR ESTIMATED > 60; GLUCOSE 117 MG/DL (70-105); POTASSIUM 3.6 MMOL/L (3.6-5.0); SODIUM 142 MMOL/L (135-145); TOTAL PROTEIN 6.5 GM/DL (6.4-8.2)
[2018-09-22 13:43] LABS: BASOPHILS # (AUTO) 0.1 10^3/uL (0.0-0.1); BASOPHILS % (AUTO) 2 % (0-10); EOSINOPHILS # (AUTO) 0.2 10^3/uL (0.0-0.3); EOSINOPHILS % (AUTO) 7 % (0-10); HEMATOCRIT 27 % (35-52); HEMOGLOBIN 8.9 G/DL (11.5-16.0); LYMPHOCYTES # (AUTO) 1.1 X 10^3 (1.0-4.0); LYMPHOCYTES % (AUTO) 41 % (12-44); MEAN CORPUSCULAR HEMOGLOBIN 34 PG (25-34); MEAN CORPUSCULAR HGB CONC 34 G/DL (32-36); MEAN CORPUSCULAR VOLUME 100 FL (80-99); MEAN PLATELET VOLUME 8.6 FL (7.4-10.4); MONOCYTES # (AUTO) 0.2 X 10^3 (0.0-1.0); MONOCYTES % (AUTO) 8 % (0-12); NEUTROPHILS # (AUTO) 1.1 X 10^3 (1.8-7.8); NEUTROPHILS % (AUTO) 42 % (42-75); PLATELET COUNT 250 10^3/uL (130-400); RED CELL DISTRIBUTION WIDTH 14.8 % (10.0-14.5); WHITE BLOOD COUNT 2.6 10^3/uL (4.3-11.0)
[2018-09-22 14:04] LABS: BUN/CREATININE RATIO 21; CALCIUM 9.4 MG/DL (8.5-10.1); CARBON DIOXIDE 23 MMOL/L (21-32); CHLORIDE 107 MMOL/L (98-107); GFR ESTIMATED > 60; GLUCOSE 77 MG/DL (70-105); SODIUM 139 MMOL/L (135-145)
[2018-09-22 14:07] LABS: POTASSIUM 4.6 MMOL/L (3.6-5.0)
[2018-09-29 10:05] LABS: BASOPHILS % (AUTO) 0 % (0-10); EOSINOPHILS # (AUTO) 0.2 10^3/uL (0.0-0.3); EOSINOPHILS % (AUTO) 8 % (0-10); HEMATOCRIT 24 % (35-52); HEMOGLOBIN 8.1 G/DL (11.5-16.0); LYMPHOCYTES # (AUTO) 0.9 X 10^3 (1.0-4.0); LYMPHOCYTES % (AUTO) 33 % (12-44); MEAN CORPUSCULAR HEMOGLOBIN 34 PG (25-34); MEAN CORPUSCULAR HGB CONC 33 G/DL (32-36); MEAN CORPUSCULAR VOLUME 103 FL (80-99); MEAN PLATELET VOLUME 9.9 FL (7.4-10.4); MONOCYTES # (AUTO) 0.3 X 10^3 (0.0-1.0); MONOCYTES % (AUTO) 10 % (0-12); NEUTROPHILS # (AUTO) 1.3 X 10^3 (1.8-7.8); NEUTROPHILS % (AUTO) 49 % (42-75); PLATELET COUNT 75 10^3/uL (130-400); RED CELL DISTRIBUTION WIDTH 14.6 % (10.0-14.5); WHITE BLOOD COUNT 2.8 10^3/uL (4.3-11.0)
[2018-09-29 10:19] LABS: BUN/CREATININE RATIO 14; CALCIUM 9.1 MG/DL (8.5-10.1); CARBON DIOXIDE 19 MMOL/L (21-32); CHLORIDE 111 MMOL/L (98-107); CREATININE SERUM 0.83 MG/DL (0.60-1.30); GFR ESTIMATED > 60; GLUCOSE 96 MG/DL (70-105); POTASSIUM 4.5 MMOL/L (3.6-5.0); SODIUM 140 MMOL/L (135-145)
[2018-10-07 11:03] LABS: BASOPHILS # (AUTO) 0.1 10^3/uL (0.0-0.1); BASOPHILS % (AUTO) 2 % (0-10); EOSINOPHILS # (AUTO) 0.2 10^3/uL (0.0-0.3); EOSINOPHILS % (AUTO) 7 % (0-10); HEMATOCRIT 27 % (35-52); HEMOGLOBIN 8.8 G/DL (11.5-16.0); LYMPHOCYTES # (AUTO) 1.3 X 10^3 (1.0-4.0); LYMPHOCYTES % (AUTO) 39 % (12-44); MEAN CORPUSCULAR HEMOGLOBIN 34 PG (25-34); MEAN CORPUSCULAR HGB CONC 33 G/DL (32-36); MEAN CORPUSCULAR VOLUME 104 FL (80-99); MEAN PLATELET VOLUME 9.1 FL (7.4-10.4); MONOCYTES # (AUTO) 0.5 X 10^3 (0.0-1.0); MONOCYTES % (AUTO) 14 % (0-12); NEUTROPHILS # (AUTO) 1.3 X 10^3 (1.8-7.8); NEUTROPHILS % (AUTO) 38 % (42-75); PLATELET COUNT 340 10^3/uL (130-400); RED CELL DISTRIBUTION WIDTH 15.9 % (10.0-14.5); WHITE BLOOD COUNT 3.3 10^3/uL (4.3-11.0)
[2018-10-07 11:22] LABS: ALANINE AMINOTRANSFERASE 7 U/L (0-55); ALBUMIN 3.9 GM/DL (3.2-4.5); ALKALINE PHOSPHATASE 101 U/L (40-136); BILIRUBIN,TOTAL 0.3 MG/DL (0.1-1.0); BUN/CREATININE RATIO 12; CALCIUM 8.8 MG/DL (8.5-10.1); CARBON DIOXIDE 19 MMOL/L (21-32); CHLORIDE 106 MMOL/L (98-107); CREATININE SERUM 0.74 MG/DL (0.60-1.30); GFR ESTIMATED > 60; GLUCOSE 100 MG/DL (70-105); POTASSIUM 4.4 MMOL/L (3.6-5.0); SODIUM 136 MMOL/L (135-145); TOTAL PROTEIN 6.7 GM/DL (6.4-8.2)
[2018-10-14 09:28] LABS: BASOPHILS % (AUTO) 1 % (0-10); EOSINOPHILS # (AUTO) 0.1 10^3/uL (0.0-0.3); EOSINOPHILS % (AUTO) 4 % (0-10); HEMATOCRIT 25 % (35-52); HEMOGLOBIN 8.3 G/DL (11.5-16.0); LYMPHOCYTES # (AUTO) 0.8 X 10^3 (1.0-4.0); LYMPHOCYTES % (AUTO) 44 % (12-44); MEAN CORPUSCULAR HEMOGLOBIN 35 PG (25-34); MEAN CORPUSCULAR HGB CONC 34 G/DL (32-36); MEAN CORPUSCULAR VOLUME 103 FL (80-99); MEAN PLATELET VOLUME 8.6 FL (7.4-10.4); MONOCYTES # (AUTO) 0.3 X 10^3 (0.0-1.0); MONOCYTES % (AUTO) 19 % (0-12); NEUTROPHILS # (AUTO) 0.6 X 10^3 (1.8-7.8); NEUTROPHILS % (AUTO) 32 % (42-75); PLATELET COUNT 292 10^3/uL (130-400); RED CELL DISTRIBUTION WIDTH 14.4 % (10.0-14.5); WHITE BLOOD COUNT 1.8 10^3/uL (4.3-11.0)
[2018-10-14 09:48] LABS: BUN/CREATININE RATIO 21; CALCIUM 9.5 MG/DL (8.5-10.1); CARBON DIOXIDE 22 MMOL/L (21-32); CHLORIDE 110 MMOL/L (98-107); CREATININE SERUM 0.72 MG/DL (0.60-1.30); GFR ESTIMATED > 60; GLUCOSE 91 MG/DL (70-105); POTASSIUM 3.9 MMOL/L (3.6-5.0); SODIUM 144 MMOL/L (135-145)
[~2018-10-21] VITALS: Ht 160 cm; Wt 56.7 kg
[~2018-10-21 08:58] MED LIST changes: +ALTEPLASE 2 MG (CATHFLO) CANCER CENTER IV ONE; +CARBOPLATIN IV SCH; +CYANOCOBALAMIN INJ 1000 MCG/ML (CANCER CENTER) ONE; +D5W IV SCH; +FOSAPREPITANT DIMEGLUMINE 150 MG in NS (IVPB) CANCER CENTER ONLY 150 ML IV SCH; +NS IV 1000 ML (CANCER CTR) IV SCH; +NS IV SCH; +PALONOSETRON HCL 0.25 MG, DEXAMETHASONE INJECTION 10 MG in NS (IVPB) CANCER CENTER 50 ML IV SCH; +PEMBROLIZUMAB IV SCH; +PEMETREXED DISODIUM IV SCH; +[UNRECOGNIZED DRUG - OTHER] IV SCH
[2018-10-21 09:19] LABS: BASOPHILS # (AUTO) 0.1 10^3/uL (0.0-0.1); BASOPHILS % (AUTO) 1 % (0-10); EOSINOPHILS # (AUTO) 0.7 10^3/uL (0.0-0.3); EOSINOPHILS % (AUTO) 11 % (0-10); HEMATOCRIT 29 % (35-52); HEMOGLOBIN 9.2 G/DL (11.5-16.0); LYMPHOCYTES # (AUTO) 1.3 X 10^3 (1.0-4.0); LYMPHOCYTES % (AUTO) 19 % (12-44); MEAN CORPUSCULAR HEMOGLOBIN 34 PG (25-34); MEAN CORPUSCULAR HGB CONC 32 G/DL (32-36); MEAN CORPUSCULAR VOLUME 107 FL (80-99); MONOCYTES # (AUTO) 0.6 X 10^3 (0.0-1.0); MONOCYTES % (AUTO) 9 % (0-12); NEUTROPHILS # (AUTO) 4.1 X 10^3 (1.8-7.8); NEUTROPHILS % (AUTO) 61 % (42-75); PLATELET COUNT 368 10^3/uL (130-400); RED CELL DISTRIBUTION WIDTH 15.8 % (10.0-14.5); WHITE BLOOD COUNT 6.7 10^3/uL (4.3-11.0)
[2018-10-21 09:37] LABS: BUN/CREATININE RATIO 17; CALCIUM 9.1 MG/DL (8.5-10.1); CARBON DIOXIDE 20 MMOL/L (21-32); CHLORIDE 111 MMOL/L (98-107); CREATININE SERUM 0.78 MG/DL (0.60-1.30); GFR ESTIMATED > 60; GLUCOSE 104 MG/DL (70-105); POTASSIUM 4.2 MMOL/L (3.6-5.0); SODIUM 144 MMOL/L (135-145)
== END 2018-10-26 | disposition home or self-care (01) ==
LOC: ONC 08:58
PROVIDERS: ATTEND Internal Medicine Hematology & Oncology
DX: Z51.11 Encounter for antineoplastic chemotherapy (principal); C34.31 Malignant neoplasm of lower lobe, right bronchus or lung; J44.9 Chronic obstructive pulmonary disease, unspecified; F17.210 Nicotine dependence, cigarettes, uncomplicated; Z80.8 Family history of malignant neoplasm of other organs or systems
CPT/HCPCS: 36415; 36591; 36593; 80048; 80053; 85025; 96367; 96375; 96411; 96413; 96417; 99213

== ENCOUNTER 2018-11-24 10:57 | Emergency (ER) | payer BC ==
[~2018-11-24] VITALS: Ht 160 cm; Wt 55.3 kg
[~2018-11-24 10:57] MED LIST changes: -ALTEPLASE 2 MG (CATHFLO) CANCER CENTER IV ONE; -CARBOPLATIN IV SCH; -CYANOCOBALAMIN INJ 1000 MCG/ML (CANCER CENTER) ONE; -D5W IV SCH; -FOSAPREPITANT DIMEGLUMINE 150 MG in NS (IVPB) CANCER CENTER ONLY 150 ML IV SCH; -NS IV 1000 ML (CANCER CTR) IV SCH; -NS IV SCH; -PALONOSETRON HCL 0.25 MG, DEXAMETHASONE INJECTION 10 MG in NS (IVPB) CANCER CENTER 50 ML IV SCH; -PEMBROLIZUMAB IV SCH; -PEMETREXED DISODIUM IV SCH; -[UNRECOGNIZED DRUG - OTHER] IV SCH
[2018-11-24] MEDS ORDERED: MECLIZINE 25 MG (ANTIVERT) TAB ONE (11:01)
[2018-11-24] MEDS ORDERED: LACTATED RINGERS 1,000 ML IV SCH (11:15)
[2018-11-24] MEDS ORDERED: MECLIZINE 25 MG (ANTIVERT) TAB PO ONE (11:15)
--- NOTE | 2018-11-24 11:20 | ED General ---
General Stated Complaint: DIZZINESS Source of Information: Patient Exam Limitations: No Limitations History of Present Illness Date Seen by Provider: Nov 24, 2018 Time Seen by Provider: 11:13 Initial Comments To ER with reports of dizziness for one week. She initially thought that this was the result of sinus infection as she had some frontal pressure. She was seen by her 's health care provider on his work site and given a prescription for prednisone and doxycycline. The forehead pressure improved over the course of the past week but the dizziness has persisted to the point that it interferes with activities of daily living, she is not able to get up to the restroom without assistance. She has lung cancer on the right metastasized to kidney and adrenal gland on the right. Most recent chemotherapy was 4 weeks ago. She was scheduled to have it 2 weeks ago but was told to skip that appointment as she may qualify for a clinical trial. She denies any headache. She has a cochlear i mplant on the left. Timing/Duration: 1 Week Severity: Moderate Associated Systoms: Headaches Allergies and Home Medications Allergies Coded Allergies: aspirin (Unverified Allergy, Unknown, 04/14/18) milk (Unverified Adverse Reaction, Unknown, 05/18/18) Home Medications Albuterol Sulfate 1 Puff Puff, 2 PUFF INH Q4H, (Reported) 1 PUFF = 90 MCG Ascorbic Acid 500 Mg Capsule.er, 500 MG PO DAILY, (Reported) Cholecalciferol (Vitamin D3) 2,000 Unit Capsule, 2,000 UNIT PO DAILY, (Reported) Dexamethasone 4 Mg Tablet, 4 MG PO Q6H Prescribed by: MARVIN LOPEZ on 11/24/18 1254 Guaifenesin 600 Mg Tab.er.12h, 600 MG PO DAILY, (Reported) Hydrocodone/Acetaminophen 1 Each Tablet, 1 TAB PO Q6H PRN for PAIN-MODERATE Prescribed by: MANAN DEWITT on 05/18/18 1015 Ibuprofen 200 Mg Tablet, 400-600 MG PO BID PRN for PAIN-MILD TO MODERATE, (Reported) Ubidecarenone 100 Mg Capsule, 100 MG PO DAILY, (Reported) Venlafaxine HCl 150 Mg Cap.er.24h, 150 MG PO DAILY, (Reported) Patient Home Medication List Home Medication List Reviewed: Yes Review of Systems Review of Systems Constitutional: see HPI, dizziness EENTM: see HPI Respiratory: no symptoms reported Cardiovascular: no symptoms reported Genitourinary: no symptoms reported Musculoskeletal: no symptoms reported Skin: no symptoms reported Psychiatric/Neurological: No Symptoms Reported Hematologic/Lymphatic: No Symptoms Reported Immunological/Allergic: no symptoms reported Past Jlciily-Vwvalg-Ncwone Hx Patient Social History Type Used: Cigarettes 2nd Hand Smoke Exposure: No Recent Hopitalizations: No Immunizations Up To Date Date of Influenza Vaccine: Jan 18, 2018 Seasonal Allergies Seasonal Allergies: Yes Past Medical History Surgeries: Yes Ear Surgery, Hysterectomy Respiratory: Yes (lung cancer) COPD Cardiac: No Neurological: No Genitourinary: No Gastrointestinal: No Musculoskeletal: No Endocrine: No HEENT: No Cancer: Yes Lung Psychosocial: No Integumentary: No Blood Disorders: No Physical Exam Vital Signs Vital Signs - First Documented 11/24/18 10:58 Temp 98.1 Pulse 106 Resp 20 B/P (MAP) 161/96 (117) Pulse Ox 98 O2 Delivery Room Air Capillary Refill : Height, Weight, BMI Height: 5'3.00" Weight: 122lbs. 0.0oz. [id number]; 21.6 BMI Method: General Appearance: No Apparent Distress, WD/WN Eyes: Bilateral Eye Normal Inspection, Bilateral Eye PERRL, Bilateral Eye EOMI HEENT: PERRL/EOMI, TMs Normal, Other (horizontal nystagmus) Neck: Full Range of Motion, Normal Inspection Cardiovascular: Regular Rate, Rhythm, Normal Peripheral Pulses Gastrointestinal: Normal Bowel Sounds, Non Tender, Soft Extremity: Normal Capillary Refill, Normal Inspection Neurologic/Psychiatric: Alert, Oriented x3, No Motor/Sensory Deficits Skin: Normal Color, Warm/Dry Progress/Results/Core Measures Suspected Sepsis SIRS Temperature: Pulse: Respiratory Rate: Laboratory Tests 11/24/18 11:17: White Blood Count 10.0 Blood Pressure / Mean: Laboratory Tests 11/24/18 11:17: Creatinine 0.66, Platelet Count 376, Total Bilirubin 0.3 Results/Orders Lab Results Laboratory Tests Test 11/24/18 11:17 Range/Units White Blood Count 10.0 4.3-11.0 10^3/uL Red Blood Count 3.47 L 4.35-5.85 10^6/uL Hemoglobin 11.2 L 11.5-16.0 G/DL Hematocrit 35 35-52 % Mean Corpuscular Volume 101 H 80-99 FL Mean Corpuscular Hemoglobin 32 25-34 PG Mean Corpuscular Hemoglobin Concent 32 32-36 G/DL Red Cell Distribution Width 13.3 10.0-14.5 % Platelet Count 376 130-400 10^3/uL Mean Platelet Volume 9.4 7.4-10.4 FL Neutrophils (%) (Auto) 74 42-75 % Lymphocytes (%) (Auto) 14 12-44 % Monocytes (%) (Auto) 8 0-12 % Eosinophils (%) (Auto) 3 0-10 % Basophils (%) (Auto) 1 0-10 % Neutrophils # (Auto) 7.4 1.8-7.8 X 10^3 Lymphocytes # (Auto) 1.4 1.0-4.0 X 10^3 Monocytes # (Auto) 0.8 0.0-1.0 X 10^3 Eosinophils # (Auto) 0.3 0.0-0.3 10^3/uL Basophils # (Auto) 0.1 0.0-0.1 10^3/uL Sodium Level 139 135-145 MMOL/L Potassium Level 3.2 L 3.6-5.0 MMOL/L Chloride Level 103 98-107 MMOL/L Carbon Dioxide Level 25 21-32 MMOL/L Anion Gap 11 5-14 MMOL/L Blood Urea Nitrogen 12 7-18 MG/DL Creatinine 0.66 0.60-1.30 MG/DL Estimat Glomerular Filtration Rate > 60 BUN/Creatinine Ratio 18 Glucose Level 118 H 70-105 MG/DL Calcium Level 9.1 8.5-10.1 MG/DL Corrected Calcium 9.3 8.5-10.1 MG/DL Total Bilirubin 0.3 0.1-1.0 MG/DL Aspartate Amino Transf (AST/SGOT) 16 5-34 U/L Alanine Aminotransferase (ALT/SGPT) 8 0-55 U/L Alkaline Phosphatase 120 40-136 U/L Total Protein 6.8 6.4-8.2 GM/DL Albumin 3.7 3.2-4.5 GM/DL My Orders Orders - MARVIN LOPEZ ACCOUNT AUDITOR Cbc With Automated Diff (11/24/18 11:01) Comprehensive Metabolic Panel (11/24/18 11:01) Ua Culture If Indicated (11/24/18 11:01) Ed Iv/Invasive Line Start (11/24/18 11:01) Meclizine Tablet (Antivert Tablet) (11/24/18 11:01) Meclizine Tablet (Antivert Tablet) (11/24/18 11:15) Lactated Ringers (Lr 1000 Ml Iv Solution (11/24/18 11:15) Ct Head Wo (11/24/18 11:11) Medications Given in ED Current Medications Medications Dose Ordered Sig/David Route Start Time Stop Time Status Last Admin Dose Admin Meclizine HCl 25 mg ONCE ONCE PO 11/24/18 11:15 11/24/18 11:16 DC 11/24/18 11:05 25 MG Vital Signs/I&O 11/24/18 10:58 Temp 98.1 Pulse 106 Resp 20 B/P (MAP) 161/96 (117) Pulse Ox 98 O2 Delivery Room Air Capillary Refill : Diagnostic Imaging Diagonstic Imaging: Xray Comments NAME: JEY VILLALOBOS [facility] REC#: [id number] PT STATUS: REG ER : 1960 PHYSICIAN: MARVIN LOPEZ APRN ADMIT DATE: 11/24/18/ER Draft Date of Exam:11/24/18 CT HEAD WO PROCEDURE: CT head without contrast. TECHNIQUE: Multiple contiguous axial images were obtained through the brain without the use of intravenous contrast. Auto Exposure Controls were utilized during the CT exam to meet ALARA standards for radiation dose reduction. INDICATION: Dizziness. Patient has history of lung carcinoma. COMPARISON: Correlation is made with head CT from 05/11/2018. FINDINGS: There is a large metal artifact from metallic device on the right, likely a cochlear implant. There is moderate low density identified in the cerebellar hemispheres bilaterally, particularly on the right with some effacement of the fourth ventricle. This is concerning for a posterior fossa mass. In addition, there is a rounded masslike density in the right occipital lobe with surrounding low density measuring 2.1 cm. Ventricular size is normal. There is no midline shift or acute hemorrhage detected. Cisterns are patent. IMPRESSION: Rounded masslike density in the right occipital lobe as well as a moderate amount of low density in the cerebellar hemispheres. Features are concerning for developing metastatic disease. MRI of the brain with and without contrast could be performed. Consideration could be given to performance of a postcontrast CT brain. Dictated on workstation # [id number] Dict: 11/24/18 1226 Trans: 11/24/[address] [facility] [id number] Interpreted by: REY HINDS MD Electronically signed by: Departure Communication (Admissions) I spoke with Dr. mojica, recommends dexamethasone 4 mg every 6 hours, follow up with him tomorrow as scheduled. Patient does report a headache and would like something for this. She has taken hydrocodone before without adverse affect. Impression Primary Impression: Metastatic lung cancer (metastasis from lung to other site) Additional Impression: Cerebellar mass Disposition: HOME, SELF-CARE Condition: Stable Departure-Patient Inst. Decision time for Depature: 12:53 Referrals: HERMINIA KENNEY MD (PCP/Family) Primary Care Physician Patient Instructions: Lung Cancer (DC) Scripts Hydrocodone Bit/Acetaminophen (Hydrocodone/Acetaminophen 5/325mg Tablet) 1 Tab Tab 1 EACH PO Q4-6HR PRN for PAIN-MODERATE MDD 10 for 3 Days, #20 TAB Prov: MARVIN LOPEZ APRN 11/24/18 Dexamethasone (Dexamethasone) 4 Mg Tablet 4 MG PO Q6H, #20 TAB Prov: MARVIN LOPEZ APRN 11/24/18 Copy Copies To 1: SHEA MOJICA MD; HERMINIA KENNEY MD, PETER J ACCOUNT AUDITOR Nov 24, 2018 11:19
[2018-11-24 11:23] LABS: BASOPHILS # (AUTO) 0.1 10^3/uL (0.0-0.1); BASOPHILS % (AUTO) 1 % (0-10); EOSINOPHILS # (AUTO) 0.3 10^3/uL (0.0-0.3); EOSINOPHILS % (AUTO) 3 % (0-10); HEMATOCRIT 35 % (35-52); HEMOGLOBIN 11.2 G/DL (11.5-16.0); LYMPHOCYTES # (AUTO) 1.4 X 10^3 (1.0-4.0); LYMPHOCYTES % (AUTO) 14 % (12-44); MEAN CORPUSCULAR HEMOGLOBIN 32 PG (25-34); MEAN CORPUSCULAR HGB CONC 32 G/DL (32-36); MEAN CORPUSCULAR VOLUME 101 FL (80-99); MEAN PLATELET VOLUME 9.4 FL (7.4-10.4); MONOCYTES # (AUTO) 0.8 X 10^3 (0.0-1.0); MONOCYTES % (AUTO) 8 % (0-12); NEUTROPHILS # (AUTO) 7.4 X 10^3 (1.8-7.8); NEUTROPHILS % (AUTO) 74 % (42-75); PLATELET COUNT 376 10^3/uL (130-400); RED CELL DISTRIBUTION WIDTH 13.3 % (10.0-14.5)
[2018-11-24 11:53] LABS: ALANINE AMINOTRANSFERASE 8 U/L (0-55); ALBUMIN 3.7 GM/DL (3.2-4.5); ALKALINE PHOSPHATASE 120 U/L (40-136); BILIRUBIN,TOTAL 0.3 MG/DL (0.1-1.0); BUN/CREATININE RATIO 18; CALCIUM 9.1 MG/DL (8.5-10.1); CARBON DIOXIDE 25 MMOL/L (21-32); CHLORIDE 103 MMOL/L (98-107); CREATININE SERUM 0.66 MG/DL (0.60-1.30); GFR ESTIMATED > 60; GLUCOSE 118 MG/DL (70-105); POTASSIUM 3.2 MMOL/L (3.6-5.0); SODIUM 139 MMOL/L (135-145); TOTAL PROTEIN 6.8 GM/DL (6.4-8.2)
--- NOTE | 2018-11-24 12:33 | Diagnostic Imaging Report ---
PROCEDURE: CT head without contrast. TECHNIQUE: Multiple contiguous axial images were obtained through the brain without the use of intravenous contrast. Auto Exposure Controls were utilized during the CT exam to meet ALARA standards for radiation dose reduction. INDICATION: Dizziness. Patient has history of lung carcinoma. COMPARISON: Correlation is made with head CT from 05/11/2018. FINDINGS: There is a large metal artifact from metallic device on the right, likely a cochlear implant. There is moderate low density identified in the cerebellar hemispheres bilaterally, particularly on the right with some effacement of the fourth ventricle. This is concerning for a posterior fossa mass. In addition, there is a rounded masslike density in the right occipital lobe with surrounding low density measuring 2.1 cm. Ventricular size is normal. There is no midline shift or acute hemorrhage detected. Cisterns are patent. IMPRESSION: Rounded masslike density in the right occipital lobe as well as a moderate amount of low density in the cerebellar hemispheres. Features are concerning for developing metastatic disease. MRI of the brain with and without contrast could be performed. Consideration could be given to performance of a postcontrast CT brain. Dictated by: Dictated on workstation # [id number]
[2018-11-24] MEDS ORDERED: DEXA4TAB PO (12:54)
[2018-11-24] MEDS ORDERED: ACHD5005 PO (13:01)
[2018-11-24] MEDS ORDERED: HYDROcodone/APAP 5 MG/325 MG (LORTAB) TAB PO ONE (13:15)
[2018-11-24 13:20] VITALS: BP 166/85
== END 2018-11-24 13:21 | disposition home or self-care (01) ==
LOC: EDUNIT# 10:57 → ER 10:58
DX: C80.1 Malignant (primary) neoplasm, unspecified (principal); C79.00 Secondary malignant neoplasm of unspecified kidney and renal pelvis; C79.71 Secondary malignant neoplasm of right adrenal gland; G93.89 Other specified disorders of brain; J44.9 Chronic obstructive pulmonary disease, unspecified; Z88.6 Allergy status to analgesic agent; Z90.710 Acquired absence of both cervix and uterus
CPT/HCPCS: 36415; 70450; 80053; 85025

== ENCOUNTER → 2018-12-27 | Outpatient (CLI) | payer BC ==
[~2018-12-27] MED LIST changes: +ACHD5005 PO; +DEXA4TAB PO
--- NOTE | 2018-12-27 11:04 | Diagnostic Imaging Report ---
PROCEDURE: CT chest, abdomen, and pelvis with and without contrast. TECHNIQUE: Precontrast images were obtained of the chest, abdomen, and pelvis. Multiple contiguous axial images were obtained through the chest, abdomen, and pelvis after administration of intravenous contrast. Auto Exposure Controls were utilized during the CT exam to meet ALARA standards for radiation dose reduction. INDICATION: Lung cancer in the right lower lobe. COMPARISON: CT chest, abdomen and pelvis from 09/29/2018. FINDINGS: CT CHEST: New midline soft tissue nodule superficial to the xiphoid measures 1.8 x 1.5 cm. No supraclavicular or axillary lymphadenopathy. Subcarinal lymph node has increased central low attenuation likely due to central necrosis, and this now measures 3.0 x 2.1 cm (previously 2.9 x 2.1 cm). Enlarged right hilar lymph node has increased low attenuation centrally and is stable in size measuring 2.0 x 1.7 cm. Left paratracheal/AP window lymph node has increased in size now measuring 2.2 x 2.2 cm (previously 1.1 x 1.6 cm). Additionally, a prevascular lymph node has enlarged. Heart is normal in size without pericardial effusion. New lower left para-aortic mediastinal lymph node measures 1.1 cm. The right lower lobe primary lung cancer has slightly decreased in size now measuring 2.0 x 2.0 cm (previously 2.3 x 1.9 cm). No new pulmonary nodules. No lytic or blastic skeletal lesions that would suggest metastases. CT ABDOMEN AND PELVIS: No focal hepatic lesion. Gallbladder and spleen are both normal. No pancreatic mass. Left adrenal mass measures 4.4 x 2.9 cm and has increased central low attenuation (previously 2.7 x 1.8 cm). Enlarging low attenuation soft tissue nodule adjacent to the left kidney measuring 2.8 x 1.8 cm (previously 1.8 x 1.1 cm). No new renal mass. Enlarging soft tissue tumor deposits in the left paracolic gutter/retroperitoneum with the largest now measuring 1.4 x 0.9 cm. There also is an enlarging lymph node along the right mesenteric root. No bowel obstruction. Focal lytic destructive lesion involving the cortex of the left ilium (image 171, series 7). IMPRESSION: 1. Interval disease progression characterized by enlarging mediastinal lymph nodes, new soft tissue metastasis superficial to the sternum, enlarging left adrenal mass, enlarging left perirenal mass, enlarging retroperitoneal/peritoneal metastases, and new destructive lytic metastases in the left ilium. Dictated by: Dictated on workstation # [id number]
== END ==
LOC: RAD 08:17
PROVIDERS: ATTEND Internal Medicine Hematology & Oncology
DX: C34.31 Malignant neoplasm of lower lobe, right bronchus or lung (principal); C77.3 Secondary and unspecified malignant neoplasm of axilla and upper limb lymph nodes; C79.51 Secondary malignant neoplasm of bone; E27.8 Other specified disorders of adrenal gland; N28.89 Other specified disorders of kidney and ureter
CPT/HCPCS: 71270; 74178

== ENCOUNTER 2019-01-13 13:35 | Outpatient (RCR) | payer BC ==
[2018-10-28 08:39] LABS: MEAN PLATELET VOLUME 8.9 FL (7.4-10.4); RED CELL DISTRIBUTION WIDTH 14.8 % (10.0-14.5); WHITE BLOOD COUNT 6.2 10^3/uL (4.3-11.0)
[2018-10-28 08:58] LABS: BASOPHILS # (AUTO) 0.2 10^3/uL (0.0-0.1); BASOPHILS % (AUTO) 3 % (0-10); EOSINOPHILS # (AUTO) 0.9 10^3/uL (0.0-0.3); EOSINOPHILS % (AUTO) 14 % (0-10); HEMATOCRIT 32 % (35-52); HEMOGLOBIN 10.2 G/DL (11.5-16.0); LYMPHOCYTES # (AUTO) 1.2 X 10^3 (1.0-4.0); LYMPHOCYTES % (AUTO) 20 % (12-44); MEAN CORPUSCULAR HEMOGLOBIN 34 PG (25-34); MEAN CORPUSCULAR HGB CONC 32 G/DL (32-36); MEAN CORPUSCULAR VOLUME 106 FL (80-99); MEAN PLATELET VOLUME 9.2 FL (7.4-10.4); MONOCYTES # (AUTO) 0.5 X 10^3 (0.0-1.0); MONOCYTES % (AUTO) 8 % (0-12); NEUTROPHILS # (AUTO) 3.4 X 10^3 (1.8-7.8); NEUTROPHILS % (AUTO) 55 % (42-75); PLATELET COUNT 480 10^3/uL (130-400); RED CELL DISTRIBUTION WIDTH 14.8 % (10.0-14.5); WHITE BLOOD COUNT 6.2 10^3/uL (4.3-11.0)
[2018-10-28 09:07] LABS: ALANINE AMINOTRANSFERASE 6 U/L (0-55); ALBUMIN 3.9 GM/DL (3.2-4.5); ALKALINE PHOSPHATASE 105 U/L (40-136); BILIRUBIN,TOTAL 0.2 MG/DL (0.1-1.0); BUN/CREATININE RATIO 14; CALCIUM 9.5 MG/DL (8.5-10.1); CARBON DIOXIDE 22 MMOL/L (21-32); CHLORIDE 109 MMOL/L (98-107); CREATININE SERUM 0.78 MG/DL (0.60-1.30); GFR ESTIMATED > 60; GLUCOSE 108 MG/DL (70-105); POTASSIUM 4.2 MMOL/L (3.6-5.0); SODIUM 141 MMOL/L (135-145); TOTAL PROTEIN 7.1 GM/DL (6.4-8.2)
[2018-11-04 10:20] LABS: BASOPHILS % (AUTO) 2 % (0-10); EOSINOPHILS # (AUTO) 0.3 10^3/uL (0.0-0.3); EOSINOPHILS % (AUTO) 13 % (0-10); HEMATOCRIT 30 % (35-52); HEMOGLOBIN 9.7 G/DL (11.5-16.0); LYMPHOCYTES # (AUTO) 0.8 X 10^3 (1.0-4.0); LYMPHOCYTES % (AUTO) 35 % (12-44); MEAN CORPUSCULAR HEMOGLOBIN 34 PG (25-34); MEAN CORPUSCULAR HGB CONC 33 G/DL (32-36); MEAN CORPUSCULAR VOLUME 104 FL (80-99); MEAN PLATELET VOLUME 8.4 FL (7.4-10.4); MONOCYTES # (AUTO) 0.2 X 10^3 (0.0-1.0); MONOCYTES % (AUTO) 11 % (0-12); NEUTROPHILS # (AUTO) 0.9 X 10^3 (1.8-7.8); NEUTROPHILS % (AUTO) 39 % (42-75); PLATELET COUNT 257 10^3/uL (130-400); RED CELL DISTRIBUTION WIDTH 13.4 % (10.0-14.5); WHITE BLOOD COUNT 2.2 10^3/uL (4.3-11.0)
[2018-11-04 10:35] LABS: BUN/CREATININE RATIO 14; CALCIUM 9.1 MG/DL (8.5-10.1); CARBON DIOXIDE 21 MMOL/L (21-32); CHLORIDE 106 MMOL/L (98-107); CREATININE SERUM 0.74 MG/DL (0.60-1.30); GFR ESTIMATED > 60; GLUCOSE 107 MG/DL (70-105); POTASSIUM 4.1 MMOL/L (3.6-5.0); SODIUM 138 MMOL/L (135-145)
[2018-11-11 10:23] LABS: BASOPHILS % (AUTO) 0 % (0-10); EOSINOPHILS # (AUTO) 0.1 10^3/uL (0.0-0.3); EOSINOPHILS % (AUTO) 1 % (0-10); HEMATOCRIT 32 % (35-52); HEMOGLOBIN 10.2 G/DL (11.5-16.0); LYMPHOCYTES # (AUTO) 0.5 X 10^3 (1.0-4.0); LYMPHOCYTES % (AUTO) 8 % (12-44); MEAN CORPUSCULAR HEMOGLOBIN 34 PG (25-34); MEAN CORPUSCULAR HGB CONC 32 G/DL (32-36); MEAN CORPUSCULAR VOLUME 104 FL (80-99); MEAN PLATELET VOLUME 9.6 FL (7.4-10.4); MONOCYTES # (AUTO) 0.2 X 10^3 (0.0-1.0); MONOCYTES % (AUTO) 3 % (0-12); NEUTROPHILS # (AUTO) 5.2 X 10^3 (1.8-7.8); NEUTROPHILS % (AUTO) 88 % (42-75); PLATELET COUNT 384 10^3/uL (130-400)
[2018-11-11 10:39] LABS: BUN/CREATININE RATIO 19; CALCIUM 9.4 MG/DL (8.5-10.1); CARBON DIOXIDE 19 MMOL/L (21-32); CHLORIDE 109 MMOL/L (98-107); CREATININE SERUM 0.79 MG/DL (0.60-1.30); GFR ESTIMATED > 60; GLUCOSE 109 MG/DL (70-105); POTASSIUM 4.3 MMOL/L (3.6-5.0); SODIUM 138 MMOL/L (135-145)
[2018-12-23 08:47] LABS: BASOPHILS % (AUTO) 0 % (0-10); EOSINOPHILS # (AUTO) 0.1 10^3/uL (0.0-0.3); EOSINOPHILS % (AUTO) 1 % (0-10); HEMATOCRIT 41 % (35-52); HEMOGLOBIN 12.9 G/DL (11.5-16.0); LYMPHOCYTES # (AUTO) 1.3 X 10^3 (1.0-4.0); LYMPHOCYTES % (AUTO) 13 % (12-44); MEAN CORPUSCULAR HEMOGLOBIN 32 PG (25-34); MEAN CORPUSCULAR HGB CONC 32 G/DL (32-36); MEAN CORPUSCULAR VOLUME 101 FL (80-99); MEAN PLATELET VOLUME 9.2 FL (7.4-10.4); MONOCYTES # (AUTO) 0.7 X 10^3 (0.0-1.0); MONOCYTES % (AUTO) 7 % (0-12); NEUTROPHILS # (AUTO) 8.2 X 10^3 (1.8-7.8); NEUTROPHILS % (AUTO) 80 % (42-75); PLATELET COUNT 301 10^3/uL (130-400); RED CELL DISTRIBUTION WIDTH 13.7 % (10.0-14.5); WHITE BLOOD COUNT 10.3 10^3/uL (4.3-11.0)
[2018-12-23 09:10] LABS: ALANINE AMINOTRANSFERASE 13 U/L (0-55); ALKALINE PHOSPHATASE 88 U/L (40-136); BILIRUBIN,TOTAL 0.2 MG/DL (0.1-1.0); BUN/CREATININE RATIO 25; CALCIUM 9.5 MG/DL (8.5-10.1); CARBON DIOXIDE 22 MMOL/L (21-32); CHLORIDE 103 MMOL/L (98-107); CREATININE SERUM 0.75 MG/DL (0.60-1.30); GFR ESTIMATED > 60; GLUCOSE 86 MG/DL (70-105); POTASSIUM 4.2 MMOL/L (3.6-5.0); SODIUM 138 MMOL/L (135-145)
[2019-01-06 14:31] LABS: BASOPHILS % (AUTO) 0 % (0-10); EOSINOPHILS % (AUTO) 0 % (0-10); HEMATOCRIT 37 % (35-52); HEMOGLOBIN 11.9 G/DL (11.5-16.0); LYMPHOCYTES # (AUTO) 0.4 X 10^3 (1.0-4.0); LYMPHOCYTES % (AUTO) 19 % (12-44); MEAN CORPUSCULAR HEMOGLOBIN 31 PG (25-34); MEAN CORPUSCULAR HGB CONC 32 G/DL (32-36); MEAN CORPUSCULAR VOLUME 95 FL (80-99); MEAN PLATELET VOLUME 9.3 FL (7.4-10.4); MONOCYTES # (AUTO) 0.4 X 10^3 (0.0-1.0); MONOCYTES % (AUTO) 18 % (0-12); NEUTROPHILS # (AUTO) 1.4 X 10^3 (1.8-7.8); NEUTROPHILS % (AUTO) 63 % (42-75); PLATELET COUNT 274 10^3/uL (130-400); RED CELL DISTRIBUTION WIDTH 13.1 % (10.0-14.5); WHITE BLOOD COUNT 2.2 10^3/uL (4.3-11.0)
[2019-01-06 14:51] LABS: BUN/CREATININE RATIO 19; CALCIUM 8.9 MG/DL (8.5-10.1); CARBON DIOXIDE 24 MMOL/L (21-32); CHLORIDE 100 MMOL/L (98-107); CREATININE SERUM 0.67 MG/DL (0.60-1.30); GFR ESTIMATED > 60; GLUCOSE 96 MG/DL (70-105); SODIUM 134 MMOL/L (135-145)
[~2019-01-13] VITALS: Ht 160 cm; Wt 56.7 kg
[~2019-01-13 13:35] MED LIST changes: +DEXAMETHASONE INJECTION 10 MG in NS (IVPB) CANCER CENTER 50 ML IV ONE; +FOSAPREPITANT DIMEGLUMINE 150 MG in NS (IVPB) CANCER CENTER ONLY 150 ML IV SCH; +NS IV 1000 ML (CANCER CTR) IV SCH; +NS IV SCH; +ONDANSETRON MDV (CANCER CENTER 8 MG, DEXAMETHASONE INJECTION 10 MG in NS (IVPB) CANCER ... IV SCH; +PALONOSETRON HCL 0.25 MG, DEXAMETHASONE INJECTION 10 MG in NS (IVPB) CANCER CENTER 50 ML IV SCH; +PEMBROLIZUMAB IV SCH; +PEMETREXED DISODIUM IV SCH; +[UNRECOGNIZED DRUG - OTHER] IV SCH
[2019-01-13 14:11] LABS: BASOPHILS % (AUTO) 0 % (0-10); EOSINOPHILS % (AUTO) 0 % (0-10); HEMATOCRIT 37 % (35-52); HEMOGLOBIN 11.7 G/DL (11.5-16.0); LYMPHOCYTES # (AUTO) 0.7 X 10^3 (1.0-4.0); LYMPHOCYTES % (AUTO) 7 % (12-44); MEAN CORPUSCULAR HEMOGLOBIN 30 PG (25-34); MEAN CORPUSCULAR HGB CONC 32 G/DL (32-36); MEAN CORPUSCULAR VOLUME 95 FL (80-99); MEAN PLATELET VOLUME 8.9 FL (7.4-10.4); MONOCYTES # (AUTO) 0.7 X 10^3 (0.0-1.0); MONOCYTES % (AUTO) 7 % (0-12); NEUTROPHILS # (AUTO) 9.6 X 10^3 (1.8-7.8); NEUTROPHILS % (AUTO) 87 % (42-75); PLATELET COUNT 270 10^3/uL (130-400); RED CELL DISTRIBUTION WIDTH 13.9 % (10.0-14.5); WHITE BLOOD COUNT 11.1 10^3/uL (4.3-11.0)
[2019-01-13 14:27] LABS: BUN/CREATININE RATIO 17; CALCIUM 9.3 MG/DL (8.5-10.1); CARBON DIOXIDE 23 MMOL/L (21-32); CHLORIDE 97 MMOL/L (98-107); GFR ESTIMATED > 60; GLUCOSE 73 MG/DL (70-105); POTASSIUM 4.4 MMOL/L (3.6-5.0); SODIUM 133 MMOL/L (135-145)
[2019-01-20] MEDS ORDERED: HYDR-3812 PO (10:25)
[2019-01-20] MEDS ORDERED: ONDA8TAB12 PO (10:25)
[2019-01-20] MEDS ORDERED: PROC10TA10 PO (10:25)
[2019-01-20] MEDS ORDERED: DEXA4TAB PO (10:25)
[2019-01-20] MEDS ORDERED: PANT40TA3 PO (10:25)
[2019-01-20] MEDS ORDERED: LORA1TAB PO (10:25)
[2019-01-20] MEDS ORDERED: MAGIC MOUTHWASH PO (10:25)
[2019-01-20] MEDS ORDERED: VENL150C98 PO (10:25)
== END 2019-01-23 | disposition home or self-care (01) ==
LOC: ONC 13:35
PROVIDERS: ATTEND Internal Medicine Hematology & Oncology
DX: Z51.11 Encounter for antineoplastic chemotherapy (principal); C34.31 Malignant neoplasm of lower lobe, right bronchus or lung; J44.9 Chronic obstructive pulmonary disease, unspecified; F17.210 Nicotine dependence, cigarettes, uncomplicated; Z80.8 Family history of malignant neoplasm of other organs or systems
CPT/HCPCS: 36415; 77290; 77295; 77300; 77334; 77336; 77417; 77470; 80048; 80053; 85025; 96367; 96374; 96375; 96413; 96417; 99204; 99213

== ENCOUNTER 2019-01-19 13:18 | Inpatient (IN) | payer BC, MEDICARE ==
[~2019-01-19] VITALS: Ht 160 cm; Wt 62.5 kg
[~2019-01-19 13:18] MED LIST changes: -DEXAMETHASONE INJECTION 10 MG in NS (IVPB) CANCER CENTER 50 ML IV ONE; -FOSAPREPITANT DIMEGLUMINE 150 MG in NS (IVPB) CANCER CENTER ONLY 150 ML IV SCH; -NS IV 1000 ML (CANCER CTR) IV SCH; -NS IV SCH; -ONDANSETRON MDV (CANCER CENTER 8 MG, DEXAMETHASONE INJECTION 10 MG in NS (IVPB) CANCER ... IV SCH; -PALONOSETRON HCL 0.25 MG, DEXAMETHASONE INJECTION 10 MG in NS (IVPB) CANCER CENTER 50 ML IV SCH; -PEMBROLIZUMAB IV SCH; -PEMETREXED DISODIUM IV SCH; -[UNRECOGNIZED DRUG - OTHER] IV SCH
[2019-01-19] MEDS ORDERED: fentaNYL INJECTION 100 MCG/2 ML AMP IVP ONE ×2 (13:45→19:00)
[2019-01-19] MEDS ORDERED: NS IV ONE (13:45)
[2019-01-19] MEDS ORDERED: CEFEPIME INJECTION 1,000 MG in WATER (STERILE) FOR INJECTION 10 ML IV ONE (13:45)
--- NOTE | 2019-01-19 13:58 | ED General ---
General Chief Complaint: Dizziness/Syncope Stated Complaint: DIZZINESS Nursing Triage Note: states that today she is dizzy and sweak, speech is slurred, pupils are enlarged per . pain in head and back Nursing Sepsis Screen: No Definite Risk Source of Information: Patient, Family Exam Limitations: No Limitations (EFRAÍN CARO) History of Present Illness Date Seen by Provider: Jan 19, 2019 Time Seen by Provider: 13:32 Initial Comments Patient presents to ER by private conveyance with her significant other and chief complaint of right pelvic pain on walking in her right hip for the past several days that is no longer responding to ibuprofen as well as a throbbing headache in the frontal sinuses, confusion, and weakness worsening over the past day or so. She has a history of stage IV metastatic non-small cell lung cancer under the care of Dr. Mahin Kenney and Dr. Banegas. She's receiving therapeutic ra diation to her bilateral pelvis as well as is on palliative chemotherapy with Taxotere. She has known brain metastases and was treated with radiation and recent restaging scans have shown disease progression. She has had a complaint according to previous notes for the past couple months of right groin pain and had been using hydrocodone but she has not been using it recently because she doesn't feel it helps and she doesn't like the way that it makes her feel. She is supposed to be oxygen dependent but is nonadherent to therapy. Her significant other says they have talked about palliative care and hospice but she has not made a decision yet. The patient states that she does not wish to be resuscitated nor be intubated. (EFRAÍN CARO) Allergies and Home Medications Allergies Coded Allergies: aspirin (Unverified Allergy, Unknown, 04/14/18) Home Medications Albuterol Sulfate 1 Puff Puff, 2 PUFF INH Q4H PRN for SHORTNESS OF BREATH, (Reported) 1 PUFF = 90 MCG Ascorbic Acid 500 Mg Capsule.er, 500 MG PO DAILY, (Reported) Cholecalciferol (Vitamin D3) 2,000 Unit Capsule, 2,000 UNIT PO DAILY, (Reported) Dexamethasone 4 Mg Tablet, 4 MG PO UD, (Reported) TAKE 1 TAB TWICE DAILY EXCEPT FOR THE DAY BEFORE, DAY OF, AND DAY AFTER CHEMO Guaifenesin 600 Mg Tab.er.12h, 600 MG PO DAILY, (Reported) Hydrocodone/Acetaminophen 1 Each Tablet, 1 TAB PO Q6H PRN for PAIN-MODERATE, (Reported) Ibuprofen 200 Mg Tablet, 400-600 MG PO BID PRN for PAIN-MILD, (Reported) Lorazepam 1 Mg Tablet, 1 MG PO TID PRN for ANXIETY, (Reported) Multivitamin 1 Each Tablet, 1 TAB PO DAILY, (Reported) Ondansetron HCl 8 Mg Tablet, 8 MG PO Q8H PRN for NAUSEA/VOMITING-1ST LINE, (Reported) Pantoprazole Sodium 40 Mg Tablet.dr, 40 MG PO DAILY, (Reported) Prochlorperazine Maleate 10 Mg Tablet, 10 MG PO Q6H PRN for NAUSEA/VOMITING-4TH LINE, (Reported) Ubidecarenone 100 Mg Capsule, 100 MG PO DAILY, (Reported) Venlafaxine HCl 150 Mg Cap.er.24h, 150 MG PO DAILY, (Reported) [Magic Mouthwash] , 5-10 ML PO QID PRN for MOUTH SORES, (Reported) LIDOCAINE/ANTACID/BENADRYL Patient Home Medication List Home Medication List Reviewed: Yes (EFRAÍN CARO) Review of Systems Review of Systems Constitutional: No chills, No diaphoresis, No fever; malaise, weakness EENTM: other (hard of hearing with previous cochlear implant right and hearing a left); No ear discharge, No ear pain Respiratory: cough; No phlegm; short of breath Cardiovascular: No chest pain, No Hx of Intervention, No palpitations Gastrointestinal: No abdominal pain, No constipation Genitourinary: No discharge, No dysuria Musculoskeletal: No back pain, No joint pain Psychiatric/Neurological: Denies Anxiety, Denies Depressed (EFRAÍN CARO) Past Wrgahtq-Ldhiow-Hkvefs Hx Patient Social History Alcohol Use: Denies Use Recreational Drug Use: No Smoking Status: Current Everyday Smoker Type Used: Cigarettes 2nd Hand Smoke Exposure: No Recent Foreign Travel: No Contact w/Someone Who Travel: No Recent Infectious Disease Expo: No Recent Hopitalizations: No (EFRAÍN CARO) Immunizations Up To Date Date of Influenza Vaccine: Jan 18, 2018 (EFRAÍN CARO) Seasonal Allergies Seasonal Allergies: Yes (EFRAÍN CARO) Past Medical History Surgeries: Yes Ear Surgery, Hysterectomy Respiratory: Yes (lung cancer) COPD Cardiac: No Neurological: No Genitourinary: No Gastrointestinal: No Musculoskeletal: No Endocrine: No HEENT: No Cancer: Yes (STAGE 4) Brain, Lung What Type of Treatment Did You: Chemotherapy Psychosocial: No Integumentary: No Blood Disorders: No (EFRAÍN CARO) Physical Exam Vital Signs Vital Signs - First Documented 01/19/19 01/19/19 13:32 13:50 Temp 37.0 Pulse 133 Resp 22 B/P (MAP) 91/52 (65) Pulse Ox 94 O2 Delivery Nasal Cannula O2 Flow Rate 2.00 (MARVIN BRASWELL APRN) Vital Signs Capillary Refill : Less Than 3 Seconds (EFRAÍN CARO) Height, Weight, BMI Height: 5'3.00" Weight: 122lbs. 0.0oz. 55.202240be; 21.00 BMI Method:Stated General Appearance: No Apparent Distress, WD/WN Eyes: Bilateral Eye Normal Inspection, Bilateral Eye PERRL, Bilateral Eye EOMI HEENT: PERRL/EOMI, Normal ENT Inspection, Pharynx Normal, Moist Mucous Membranes, Other (hard of hearing, bilateral TMs opaque, whitish mucoid effusion) Neck: Full Range of Motion, Normal Inspection Respiratory: Chest Non Tender, No Accessory Muscle Use, No Respiratory Distress, Decreased Breath Sounds, Rales (Faint right base) Cardiovascular: Regular Rate, Rhythm, No Edema, Normal Peripheral Pulses, Tachycardia (130) Gastrointestinal: Normal Bowel Sounds, Non Tender, Soft, Tenderness (Right groi) Back: Normal Inspection, No Vertebral Tenderness Extremity: Normal Capillary Refill, Normal Inspection, No Pedal Edema, Other (mild tenderness in the right inguinal area without mass, tumor, hernia palpable.) Neurologic/Psychiatric: Alert, Normal Mood/Affect, Other (oriented to person and place but not time or situation) Skin: Normal Color, Warm/Dry (EFRAÍN CARO) Focused Exam Lactate Level 01/19/19 14:41: Lactic Acid Level 2.17*H 01/19/19 16:56: Lactic Acid Level 3.58*H (MARVIN BRASWELL APRN) Lactic Acid Level Laboratory Tests Test 01/19/19 16:56 Lactic Acid Level 3.58 MMOL/L (0.50-2.00) *H (MARVIN BRASWELL APRN) Progress/Results/Core Measures Suspected Sepsis Recent Fever Within 48 Hours: No Infection Criteria Present: None New/Unexplained Altered Menta: No Sepsis Screen: No Definite Risk SIRS Temperature: Pulse: 133 Respiratory Rate: 22 Laboratory Tests 01/19/19 14:41: White Blood Count 14.3H 01/20/19 03:16: White Blood Count 11.3H Blood Pressure 91 /52 Mean: 65 01/19/19 16:56: Lactic Acid Level 3.58*H 01/19/19 21:25: Lactic Acid Level 3.87*H 01/19/19 23:20: Lactic Acid Level 2.89*H Laboratory Tests 01/19/19 14:41: Creatinine 0.83, INR Comment 1.1, Platelet Count 306, Total Bilirubin 0.4 01/20/19 03:16: Creatinine 0.72, Platelet Count 241 (EFRAÍN CARO) Results/Orders Lab Results Laboratory Tests Test 01/19/19 14:41 01/19/19 16:25 01/19/19 16:40 01/19/19 16:54 Range/Units White Blood Count 14.3 H 4.3-11.0 10^3/uL Red Blood Count 4.03 L 4.35-5.85 10^6/uL Hemoglobin 12.2 11.5-16.0 G/DL Hematocrit 39 35-52 % Mean Corpuscular Volume 96 80-99 FL Mean Corpuscular Hemoglobin 30 25-34 PG Mean Corpuscular Hemoglobin Concent 32 32-36 G/DL Red Cell Distribution Width 15.1 H 10.0-14.5 % Platelet Count 306 130-400 10^3/uL Mean Platelet Volume 9.0 7.4-10.4 FL Neutrophils (%) (Auto) 91 H 42-75 % Lymphocytes (%) (Auto) 6 L 12-44 % Monocytes (%) (Auto) 3 0-12 % Eosinophils (%) (Auto) 0 0-10 % Basophils (%) (Auto) 0 0-10 % Neutrophils # (Auto) 12.9 H 1.8-7.8 X 10^3 Lymphocytes # (Auto) 0.9 L 1.0-4.0 X 10^3 Monocytes # (Auto) 0.4 0.0-1.0 X 10^3 Eosinophils # (Auto) 0.1 0.0-0.3 10^3/uL Basophils # (Auto) 0.0 0.0-0.1 10^3/uL Neutrophils % (Manual) 86 % Lymphocytes % (Manual) 6 % Monocytes % (Manual) 1 % Eosinophils % (Manual) 0 % Basophils % (Manual) 0 % Myelocytes % 1 % Band Neutrophils 6 % Anisocytosis SLIGHT Prothrombin Time 14.3 12.2-14.7 SEC INR Comment 1.1 0.8-1.4 Activated Partial Thromboplast Time 26 24-35 SEC Sodium Level 132 L 135-145 MMOL/L Potassium Level 4.0 3.6-5.0 MMOL/L Chloride Level 98 98-107 MMOL/L Carbon Dioxide Level 22 21-32 MMOL/L Anion Gap 12 5-14 MMOL/L Blood Urea Nitrogen 20 H 7-18 MG/DL Creatinine 0.83 0.60-1.30 MG/DL Estimat Glomerular Filtration Rate > 60 BUN/Creatinine Ratio 24 Glucose Level 55 *L 70-105 MG/DL Lactic Acid Level 2.17 *H 0.50-2.00 MMOL/L Calcium Level 8.6 8.5-10.1 MG/DL Corrected Calcium 9.1 8.5-10.1 MG/DL Total Bilirubin 0.4 0.1-1.0 MG/DL Aspartate Amino Transf (AST/SGOT) 22 5-34 U/L Alanine Aminotransferase (ALT/SGPT) 8 0-55 U/L Alkaline Phosphatase 102 40-136 U/L Total Protein 6.6 6.4-8.2 GM/DL Albumin 3.4 3.2-4.5 GM/DL Glucometer 94 70-110 MG/DL Urine Color YELLOW Urine Clarity CLEAR Urine pH 5 5-9 Urine Specific [place] 1.015 L 1.016-1.022 Urine Protein 2+ H NEGATIVE Urine Glucose (UA) NEGATIVE NEGATIVE Urine Ketones 1+ H NEGATIVE Urine Nitrite NEGATIVE NEGATIVE Urine Bilirubin NEGATIVE NEGATIVE Urine Urobilinogen 1 NORMAL MG/DL Urine Leukocyte Esterase 1+ H NEGATIVE Urine RBC (Auto) NEGATIVE NEGATIVE Urine RBC NONE /HPF Urine WBC 0-2 /HPF Urine Squamous Epithelial Cells 2-5 /HPF Urine Crystals NONE /LPF Urine Bacteria FEW H /HPF Urine Casts PRESENT /LPF Urine Hyaline Casts 0-2 H /LPF Urine Mucus SMALL H /LPF Urine Culture Indicated CULTURE PENDING Blood Gas Puncture Site LEFT RADIAL Blood Gas Patient Temperature 36.9 Arterial Blood pH 7.40 7.37-7.43 Arterial Blood Partial Pressure CO2 26 L 35-45 MMHG Arterial Blood Partial Pressure O2 77 L 79-93 MMHG Arterial Blood HCO3 16 *L 23-27 MMOL/L Arterial Blood Total CO2 16.6 L 21.0-31.0 MMOL/L Arterial Blood Oxygen Saturation 95 94-100 % Arterial Blood Base Excess -8.2 L -2.5-2.5 MMOL/L Luis Test POSITIVE Blood Gas Ventilator Setting NO Blood Gas Inspired Oxygen 4 L Test 01/19/19 16:56 Range/Units Lactic Acid Level 3.58 *H 0.50-2.00 MMOL/L (MARVIN BRASWELL APRN) Micro Results Microbiology 01/19/19 Influenza Types A,B Antigen ([place]) - Final, Complete (MARVIN BRASWELL APRN) My Orders Orders - MARVIN BRASWELL APRN Lorazepam Injection (Ativan Injection) (01/19/19 18:30) Nicotine Lozenge (Commit Lozenge) (01/19/19 18:30) Piperacillin Sodium/Tazobactam (Zosyn Vi (01/19/19 19:00) Fentanyl Injection (Sublimaze Injection (01/19/19 19:00) (MARVIN BRASWELL APRN) Medications Given in ED Current Medications Medications Dose Ordered Sig/David Route Start Time Stop Time Status Last Admin Dose Admin Cefepime HCl 1000 mg/Sterile Water 10 ml @ 200 mls/hr ONCE ONCE IV 01/19/19 13:45 01/19/19 13:49 DC 01/19/19 14:54 200 MLS/HR Fentanyl Citrate 50 mcg ONCE ONCE IVP 01/19/19 13:45 01/19/19 13:49 DC 01/19/19 14:05 50 MCG Iohexol 100 ml ONCE ONCE IV 01/19/19 14:30 01/19/19 14:31 DC 01/19/19 17:42 69 ML Lorazepam 1 mg ONCE PRN IVP 01/19/19 18:30 01/19/19 18:38 1 MG Sodium Chloride 10 ml NEEDED PRN IV 01/19/19 14:30 01/19/19 17:42 10 ML Sodium Chloride 100 ml ONCE ONCE IV 01/19/19 14:30 01/19/19 14:31 DC 01/19/19 17:42 80 ML Sodium Chloride 1,660.14 ml @ 1,660.14 mls/hr ONCE ONCE IV 01/19/19 13:45 01/19/19 14:44 DC 01/19/19 14:05 1,660.14 MLS/HR (MARVIN BRASWELL DIVERSITY MANAGER) Vital Signs/I&O 01/19/19 01/19/19 01/19/19 13:32 13:50 16:47 Temp 37.0 37.0 Pulse 133 133 Resp 22 22 B/P (MAP) 91/52 (65) 110/78 Pulse Ox 94 94 O2 Delivery Nasal Cannula Nasal Cannula O2 Flow Rate 2.00 2.00 (MARVIN BRASWELL DIVERSITY MANAGER) Vital Signs/I&O Capillary Refill : Less Than 3 Seconds (EFRAÍN CARO) Blood Pressure Mean: 65 Progress Note #1: Time: 14:03 Progress Note Delirium, headache with history of metastatic to the brain. Her right groin pain is not new but we will obtain a CT of the abdomen pelvis which will include the pelvis looking for new masses, infection, pathologic fractures etc. Chest x-ray as we hear some right basilar crackles and she is hypoxic although the hypoxic sat of 90% is not necessarily new since she supposed to be on oxygen at home. Influenza swab. Progress Note #2: Time: 15:14 Progress Note Blood glucose 55. We are going to try to feed the patient. (EFRAÍN CARO) Diagnostic Imaging Diagonstic Imaging: CT (without IV contrast) Plain Films/CT/US/NM/MRI: head Comments NAME: JEY VILLALOBOS [facility] REC#: [id number] PHYSICIAN: EFRAÍN CARO MD CC: CARY BRIGHT MD; EFRAÍN CARO Page 1 of 1 RADIOLOGY REPORT [facility] [place] CC: CARY BRIGHT MD; EFRAÍN CARO Page 1 of 1 RADIOLOGY REPORT NAME: JEY VILLALOBOS [facility] REC#: [id number] PT STATUS: ADM IN : 1960 PHYSICIAN: EFRAÍN CARO MD ADMIT DATE: 01/19/19/ICU Signed Date of Exam: 01/19/19 CT HEAD WO INDICATION: Dizziness, history of cochlear implant. Noncontrast brain CT is performed and compared to 11/24/2018. There are mild diffuse atrophic changes. There are no extra-axial fluid collections. No intracranial hemorrhage. There is metallic artifact from the patient's cochlear implant on the right side. These findings are unchanged compared to the previous study. There appears to be a hypodense area in the right cerebellum. This shows much less mass effect than on 11/24/2018 and may be due to resolving mass lesion. Calvarial windows show no abnormality, aside from the patient's cochlear implant. IMPRESSION: Compared to the prior study of 11/24/2018, there appears to be considerably less mass effect in the left cerebellum with some mild residual underlying hypodensity. The fourth ventricle is more normal in size. Suspect treatment of underlying lesion, correlate with clinical findings. Dictated by: Dictated on workstation # [id number] Dict: 01/19/191745 Trans: 01/19/191937 Interpreted by: CARY BRIGHT MD Electronically signed by: CARY BRIGHT MD 01/19/191937 Reviewed: Reviewed by Nv Diagonstic Imaging: CT (with IV contrast) Plain Films/CT/US/NM/MRI: abdomen, pelvis Comments NAME: JEY VILLALOBOS [facility] REC#: [id number] PHYSICIAN: EFRAÍN CARO MD CC: DANNI SANCHEZ MD; EFRAÍN CARO Page 2 of 3 RADIOLOGY REPORT [facility] [place] [place] CC: DANNI SANCHEZ MD; EFRAÍN CARO Page 1 of 3 RADIOLOGY REPORT NAME: JEY VILLALOBOS [facility] REC#: [id number] PT STATUS: REG ER : 1960 PHYSICIAN: EFRAÍN CARO MD ADMIT DATE: 01/19/19/ER Signed Date of Exam: 01/19/19 CT ABDOMEN/PELVIS W PROCEDURE: CT abdomen and pelvis with contrast. TECHNIQUE: Multiple contiguous axial images were obtained through the abdomen and pelvis after administration of intravenous contrast. Auto Exposure Controls were utilized during the CT exam to meet ALARA standards for radiation dose reduction. DATE: January 19, 2019. COMPARISON: CT chest, abdomen and pelvis December 27, 2018. INDICATION: 58-year-old female, history of lung cancer on chemotherapy. History of metastatic disease. FINDINGS: There is a spiculated right lower lobe pulmonary nodule on axial image 6 measuring 1.9 x 1.7 cm in axial dimension. On December 27, 2018, this previously measures approximately 2.0 x 2.0 cm in size. This is essentially unchanged to perhaps minimally decreased in size since the very recent comparison exam. There are mild dependent linear opacities in the right and left lower lobes most likely relating to atelectasis. The heart is not enlarged. There is a very small amount of pericardial fluid. There is a left periaortic lymph node on axial image 8 measuring 10 mm in short axis which is unchanged since recent exam. The liver is normal in size and contour. There is no identified liver lesion. The main, right, and left portal veins are patent. The gallbladder is unremarkable. There is no intrahepatic or extrahepatic bile duct dilation. The main pancreatic duct is not abnormally dilated. The pancreatic parenchyma is unremarkable. The spleen is not enlarged. There is a left adrenal mass which is ill-defined and heterogeneous in attenuation which measures roughly 4.5 x 2.9 cm in axial extent. This is essentially unchanged since December 27, 2018. There is a low-attenuation lesion which directly abuts the left iliopsoas muscle at its upper aspect and also abuts the left kidney and measures 2.6 x 1.8 cm in size. This is largely unchanged since December 27, 2018. There does appear to be peripheral enhancement of the medial aspect of the lesion or at least high peripheral attenuation. The right adrenal gland is unremarkable. Additional evaluation of the renal parenchyma is unremarkable. The urinary collecting systems are not distended. The urinary bladder is unremarkable. The uterus is not seen and may be surgically absent. There is diverticulosis without evidence of acute diverticulitis. There is abnormal mucosal enhancement and wall thickening of the sigmoid colon which is a fairly long segment in length. There is a distorted contour of the colon in the region of the cecum which is a change in appearance since comparison exam. There is distortion and swirling of the contours within the peritoneal cavity such as on axial image 64 and adjacent sequential images which is also a new finding. There is abnormal mesenteric edema as well as peritoneal strandiness anteriorly. There are abnormal mildly distended fluid-filled segments of small bowel such as in the left abdomen on axial image 52 and adjacent sequential images. The findings within the peritoneal cavity as well as abnormal small bowel dilation and abnormal mucosal enhancement of the sigmoid colon are all interval new findings. There is no identified well-demarcated drainable fluid collection. There is no free intraperitoneal air. There is a small amount of free pelvic fluid. There are atherosclerotic calcifications. There are subcentimeter short axis left retroperitoneal lymph nodes. There is a destructive bone lesion involving the left iliac bone with loss of normal iliac cortex on axial image 60 which is unchanged in size since December 27, 2018. There are degenerative changes of the spine. IMPRESSION: CT ABDOMEN AND PELVIS. 1. Redemonstrated extensive multifocal metastatic disease with largely unchanged appearance since December 27, 2018. 2. New abnormal mucosal enhancement and wall thickening of the sigmoid colon of long segment length as well as abnormal distortion and swelling of contours in the peritoneal cavity, focal abnormal fluid filled segment of small bowel, mesenteric edema, and peritoneal strandiness. The abnormal appearance of the bowel may reflect an infectious or inflammatory enteritis and colitis. 3. Peritoneal stranding could relate to peritoneal carcinomatosis and/or peritonitis. No drainable fluid collection or free intraperitoneal air. Dictated by: Dictated on workstation # [id number] Dict: 01/19/191751 Trans: 01/19/191816 Interpreted by: DANNI SANCHEZ MD Electronically signed by: DANNI SANCHEZ MD 01/19/191816 Reviewed: Reviewed by Nv Diagonstic Imaging: Xray Plain Films/CT/US/NM/MRI: chest (1v) Comments NAME: JEY VILLALOBOS [facility] REC#: [id number] PT STATUS: REG ER : 1960 PHYSICIAN: EFRAÍN CARO MD ADMIT DATE: 01/19/19/ER Draft Date of Exam:01/19/19 CHEST 1 VIEW, AP/PA ONLY INDICATION: Dizziness. Weakness. Slurred speech. COMPARISON: 05/18/2018. FINDINGS: Single frontal view of the chest demonstrates normal heart size and pulmonary vascularity. The lungs are well aerated and clear. No large pleural effusion or pneumothorax is seen. The visualized osseous structures show no acute abnormalities. Left subclavian Port-A-Cath is noted with tip in the high SVC. IMPRESSION: 1. No acute cardiopulmonary process. Dictated on workstation # [id number] Dict: 01/19/19 1425 Trans: 01/19/191425 [id number] Interpreted by: TOMMY FINN MD Electronically signed by: Reviewed: Reviewed by Me (EFRAÍN CARO) Departure Communication (Admissions) Mahin Kenney contacted by Marvin Braswell (EFRAÍN CARO) Time/Spoke to Admitting Phy: 18:51 1849-took over the care of this patient from Dr. Caro at 1800. I've reviewed the CT report and discussed with patient and family the need for admission. Patient agrees to stay. There is some new abnormally thickened loops of bowel in the abdomen which could simply be from the radiation that she's been receiving or an infectious cause. She's had no fevers. She states that she has not had any diarrhea. She does complain of some low back pain is rather severe however, fentanyl ordered. She has leukocytosis but is still on dexamethasone. Heart rate is 123, oxygen on 5 L is 98%, respiratory rate 19 blood pressure 104/67, she wants to be a DO NOT RESUSCITATE and DO NOT INTUBATE status. I discussed the case with Dr. Kenney, we'll admit her empirically on Zosyn assuming the enteritis to be infectious rather than inflammatory. (MARVIN BRASWELL APRN) Impression Primary Impression: Metastatic primary lung cancer Qualified Codes: C34.90 - Malignant neoplasm of unspecified part of unsp ecified bronchus or lung Additional Impressions: Enteritis Sepsis Qualified Codes: A41.9 - Sepsis, unspecified organism Disposition: ADMITTED INPATIENT Condition: Critical Admissions Decision to Admit Reason: Admit from ER (General) Decision to Admit/Date: Jan 19, 2019 Time/Decision to Admit Time: 18:49 (MARVIN BRASWELL APRN) Departure-Patient Inst. Referrals: MAHIN KENNEY MD (PCP/Family) Primary Care Physician EFRAÍN CARO Jan 19, 2019 13:58 MARVIN BRASWELL APRN Jan 19, 2019 18:52
--- NOTE | 2019-01-19 14:26 | Diagnostic Imaging Report ---
INDICATION: Dizziness. Weakness. Slurred speech. COMPARISON: 05/18/2018. FINDINGS: Single frontal view of the chest demonstrates normal heart size and pulmonary vascularity. The lungs are well aerated and clear. No large pleural effusion or pneumothorax is seen. The visualized osseous structures show no acute abnormalities. Left subclavian Port-A-Cath is noted with tip in the high SVC. IMPRESSION: 1. No acute cardiopulmonary process. Dictated by: Dictated on workstation # [id number]
[2019-01-19] MEDS ORDERED: HOLD METFORMIN - RECEIVED CONTRAST 20 ML VIAL IV SCH (14:30)
[2019-01-19] MEDS ORDERED: IOHEXOL 350 MG/ML 100 ML (OMNIPAQUE 350) VIAL IV ONE (14:30)
[2019-01-19] MEDS ORDERED: NS 100 ML (IVPB) BAG IV ONE (14:30)
[2019-01-19] MEDS ORDERED: CATHETER FLUSH 10 ML SYR IV PRN (14:30)
[2019-01-19 14:46] LABS: BASOPHILS % (AUTO) 0 % (0-10); EOSINOPHILS # (AUTO) 0.1 10^3/uL (0.0-0.3); EOSINOPHILS % (AUTO) 0 % (0-10); HEMATOCRIT 39 % (35-52); HEMOGLOBIN 12.2 G/DL (11.5-16.0); LYMPHOCYTES # (AUTO) 0.9 X 10^3 (1.0-4.0); LYMPHOCYTES % (AUTO) 6 % (12-44); MEAN CORPUSCULAR HEMOGLOBIN 30 PG (25-34); MEAN CORPUSCULAR HGB CONC 32 G/DL (32-36); MEAN CORPUSCULAR VOLUME 96 FL (80-99); MONOCYTES # (AUTO) 0.4 X 10^3 (0.0-1.0); MONOCYTES % (AUTO) 3 % (0-12); NEUTROPHILS # (AUTO) 12.9 X 10^3 (1.8-7.8); NEUTROPHILS % (AUTO) 91 % (42-75); PLATELET COUNT 306 10^3/uL (130-400); RED CELL DISTRIBUTION WIDTH 15.1 % (10.0-14.5); WHITE BLOOD COUNT 14.3 10^3/uL (4.3-11.0)
[2019-01-19 15:01] LABS: INR 1.1 (0.8-1.4); PROTHROMBIN TIME PATIENT 14.3 SEC (12.2-14.7)
[2019-01-19 15:05] LABS: ALANINE AMINOTRANSFERASE 8 U/L (0-55); ALBUMIN 3.4 GM/DL (3.2-4.5); ALKALINE PHOSPHATASE 102 U/L (40-136); BILIRUBIN,TOTAL 0.4 MG/DL (0.1-1.0); BUN/CREATININE RATIO 24; CALCIUM 8.6 MG/DL (8.5-10.1); CARBON DIOXIDE 22 MMOL/L (21-32); CHLORIDE 98 MMOL/L (98-107); CREATININE SERUM 0.83 MG/DL (0.60-1.30); GFR ESTIMATED > 60; SODIUM 132 MMOL/L (135-145); TOTAL PROTEIN 6.6 GM/DL (6.4-8.2)
[2019-01-19 15:13] LABS: GLUCOSE 55 MG/DL (70-105)
[2019-01-19 15:17] LABS: ANISOCYTOSIS SLIGHT; BAND NEUTROPHILS 6 %; BASOPHILS % (MANUAL) 0 %; EOSINOPHILS % (MANUAL) 0 %; LYMPHOCYTES % (MANUAL) 6 %; MONOCYTES % (MANUAL) 1 %; MYELOCYTES % 1 %; NEUTROPHILS % (MANUAL) 86 %
[2019-01-19 16:48] LABS: BILIRUBIN,URINE NEGATIVE (NEGATIVE); CLARITY,URINE CLEAR; COLOR,URINE YELLOW; GLUCOSE, URINE (UA) NEGATIVE (NEGATIVE); KETONES,URINE 1+ (NEGATIVE); LEUKOCYTE ESTERASE ,URINE 1+ (NEGATIVE); NITRITE,URINE NEGATIVE (NEGATIVE); PH,URINE 5 (5-9); PROTEIN,URINE 2+ (NEGATIVE); UROBILINOGEN,URINE 1 MG/DL (NORMAL)
[2019-01-19 17:00] LABS: ABG BASE EXCESS -8.2 MMOL/L (-2.5-2.5); ABG OXYGEN SATURATION 95 % (94-100); ABG PCO2 26 MMHG (35-45); ABG PO2 77 MMHG (79-93); ABG TCO2 16.6 MMOL/L (21.0-31.0)
--- NOTE | 2019-01-19 17:00 | NUR ---
Recieved report from DARRIAN Reyna to assume care of pt @ this time.
[2019-01-19 17:02] LABS: ALLENS TEST POSITIVE; INSPIRED O2 4 L; PATIENT TEMP 36.9; VENTILATOR NO
[2019-01-19 17:10] LABS: BACTERIA,URINE FEW /HPF; WBC,URINE 0-2 /HPF
[2019-01-19 17:11] LABS: HYALINE CASTS, URINE 0-2 /LPF
[2019-01-19] MEDS ORDERED: NS IV 1000 ML 1,000 ML IV SCH (17:36)
--- NOTE | 2019-01-19 17:51 | Diagnostic Imaging Report ---
INDICATION: Dizziness, history of cochlear implant. Noncontrast brain CT is performed and compared to 11/24/2018. There are mild diffuse atrophic changes. There are no extra-axial fluid collections. No intracranial hemorrhage. There is metallic artifact from the patient's cochlear implant on the right side. These findings are unchanged compared to the previous study. There appears to be a hypodense area in the right cerebellum. This shows much less mass effect than on 11/24/2018 and may be due to resolving mass lesion. Calvarial windows show no abnormality, aside from the patient's cochlear implant. IMPRESSION: Compared to the prior study of 11/24/2018, there appears to be considerably less mass effect in the left cerebellum with some mild residual underlying hypodensity. The fourth ventricle is more normal in size. Suspect treatment of underlying lesion, correlate with clinical findings. Dictated by: Dictated on workstation # [id number]
--- NOTE | 2019-01-19 18:16 | Diagnostic Imaging Report ---
PROCEDURE: CT abdomen and pelvis with contrast. TECHNIQUE: Multiple contiguous axial images were obtained through the abdomen and pelvis after administration of intravenous contrast. Auto Exposure Controls were utilized during the CT exam to meet ALARA standards for radiation dose reduction. DATE: January 19, 2019. COMPARISON: CT chest, abdomen and pelvis December 27, 2018. INDICATION: 58-year-old female, history of lung cancer on chemotherapy. History of metastatic disease. FINDINGS: There is a spiculated right lower lobe pulmonary nodule on axial image 6 measuring 1.9 x 1.7 cm in axial dimension. On December 27, 2018, this previously measures approximately 2.0 x 2.0 cm in size. This is essentially unchanged to perhaps minimally decreased in size since the very recent comparison exam. There are mild dependent linear opacities in the right and left lower lobes most likely relating to atelectasis. The heart is not enlarged. There is a very small amount of pericardial fluid. There is a left periaortic lymph node on axial image 8 measuring 10 mm in short axis which is unchanged since recent exam. The liver is normal in size and contour. There is no identified liver lesion. The main, right, and left portal veins are patent. The gallbladder is unremarkable. There is no intrahepatic or extrahepatic bile duct dilation. The main pancreatic duct is not abnormally dilated. The pancreatic parenchyma is unremarkable. The spleen is not enlarged. There is a left adrenal mass which is ill-defined and heterogeneous in attenuation which measures roughly 4.5 x 2.9 cm in axial extent. This is essentially unchanged since December 27, 2018. There is a low-attenuation lesion which directly abuts the left iliopsoas muscle at its upper aspect and also abuts the left kidney and measures 2.6 x 1.8 cm in size. This is largely unchanged since December 27, 2018. There does appear to be peripheral enhancement of the medial aspect of the lesion or at least high peripheral attenuation. The right adrenal gland is unremarkable. Additional evaluation of the renal parenchyma is unremarkable. The urinary collecting systems are not distended. The urinary bladder is unremarkable. The uterus is not seen and may be surgically absent. There is diverticulosis without evidence of acute diverticulitis. There is abnormal mucosal enhancement and wall thickening of the sigmoid colon which is a fairly long segment in length. There is a distorted contour of the colon in the region of the cecum which is a change in appearance since comparison exam. There is distortion and swirling of the contours within the peritoneal cavity such as on axial image 64 and adjacent sequential images which is also a new finding. There is abnormal mesenteric edema as well as peritoneal strandiness anteriorly. There are abnormal mildly distended fluid-filled segments of small bowel such as in the left abdomen on axial image 52 and adjacent sequential images. The findings within the peritoneal cavity as well as abnormal small bowel dilation and abnormal mucosal enhancement of the sigmoid colon are all interval new findings. There is no identified well-demarcated drainable fluid collection. There is no free intraperitoneal air. There is a small amount of free pelvic fluid. There are atherosclerotic calcifications. There are subcentimeter short axis left retroperitoneal lymph nodes. There is a destructive bone lesion involving the left iliac bone with loss of normal iliac cortex on axial image 60 which is unchanged in size since December 27, 2018. There are degenerative changes of the spine. IMPRESSION: CT ABDOMEN AND PELVIS. 1. Redemonstrated extensive multifocal metastatic disease with largely unchanged appearance since December 27, 2018. 2. New abnormal mucosal enhancement and wall thickening of the sigmoid colon of long segment length as well as abnormal distortion and swelling of contours in the peritoneal cavity, focal abnormal fluid filled segment of small bowel, mesenteric edema, and peritoneal strandiness. The abnormal appearance of the bowel may reflect an infectious or inflammatory enteritis and colitis. 3. Peritoneal stranding could relate to peritoneal carcinomatosis and/or peritonitis. No drainable fluid collection or free intraperitoneal air. Dictated by: Dictated on workstation # [id number]
[2019-01-19] MEDS ORDERED: NICOTINE 2 MG LOZENGE (COMMIT) MM ONE (18:30)
[2019-01-19] MEDS ORDERED: LORazepam INJ 2 MG/ML (ATIVAN) VIAL IVP PRN (18:30)
[2019-01-19] MEDS ORDERED: PIPERACILLIN SODIUM/TAZOBACTAM 4.5 GM in NS (IVPB) 100 ML IV ONE (19:00)
[2019-01-19] MEDS ORDERED: HYDROcodone/APAP 5 MG/325 MG (LORTAB) TAB PO ONE (19:15)
[2019-01-19 20:00] VITALS: BP 122/83
[2019-01-19] MEDS ORDERED: EPINEPHrine 1 MG INJECTION 2 MG in NS (IVPB) 250 ML IV SCH (20:15)
[2019-01-19 20:27] VITALS: BP 103/73
[2019-01-19] MEDS: VASOPRESSIN INJECTION 20 UNIT in NORMAL SALINE 100 ML IV SCH (20:39)
[2019-01-19] MEDS: NOREPINEPHRINE 4 MG in NS (IVPB) 250 ML IV SCH (20:39)
[2019-01-19] MEDS: NS IV 1000 ML 1,000 ML IV SCH (20:40)
[2019-01-19 21:00] VITALS: BP 91/54
[2019-01-19] MEDS: NICOTINE 21 MG (NICODERM) PATCH TD SCH (21:13)
[2019-01-19 22:00] VITALS: BP 111/89
[2019-01-19] MEDS: RT-ALBUTEROL/IPRATROPIUM 3 ML (DUONEB) VIAL INH SCH (22:32)
[2019-01-19 23:00] VITALS: BP 106/67
[2019-01-19] MEDS: fentaNYL INJECTION 100 MCG/2 ML AMP IV PRN (23:35)
[2019-01-19] MEDS ORDERED: DEXTROSE 50% 50 ML (IMS) SYR ONE (23:45)
[2019-01-20] VITALS (24 sets, daily range): BP systolic 94–123; BP diastolic 51–92
--- NOTE | 2019-01-20 00:03 | NUR ---
[id number] E-ICU OF PATIENT HAVING INCREASED WORK OF BREATHING, CRACKLES IN THE BASES OF LUNGS, WET COUGH. HEART RATE IN 140'S. O2 SATS MID 80'S. ALSO NOTED THAT BLOOD SUGAR WAS CRITICAL IN 50'S. ORDER FOR VAPOTHERM AND BIPAP PRN. D/C CURRENT NS AT 250ML/HR. START D5NS AT 75ML/HR.
[2019-01-20] MEDS: D5 NS 1000 ML IV SOLUTION 1,000 ML IV SCH ×2 (00:20→13:53)
[2019-01-20] MEDS ORDERED: D5 NS 1000 ML IV SOLUTION 1,000 ML IV ONE (00:24)
[2019-01-20] MEDS: fentaNYL INJECTION 100 MCG/2 ML AMP IV PRN (00:49)
[2019-01-20] MEDS: LORazepam 1 MG (ATIVAN) TAB PO PRN ×2 (00:49→20:28)
[2019-01-20] MEDS: NS IV 1000 ML 1,000 ML IV SCH (00:52)
[2019-01-20] MEDS ORDERED: DEXTROSE 50% 50 ML (IMS) SYR IV ONE (01:00)
[2019-01-20] MEDS: PIPERACILLIN/TAZO 4.5 GM/NS 100 ML IV SCH ×4 (01:16→12:37)
[2019-01-20] MEDS ORDERED: HYDROmorphone 2 MG/ML VIAL (DILAUDID) ONE (02:37)
[2019-01-20] MEDS: HYDROmorphone 2 MG/ML VIAL (DILAUDID) IV PRN ×4 (02:44→21:59)
[2019-01-20] MEDS: RT-ALBUTEROL/IPRATROPIUM 3 ML (DUONEB) VIAL INH SCH ×5 (03:02→22:28)
[2019-01-20 03:23] LABS: BASOPHILS % (AUTO) 0 % (0-10); EOSINOPHILS % (AUTO) 0 % (0-10); HEMATOCRIT 36 % (35-52); HEMOGLOBIN 11.2 G/DL (11.5-16.0); LYMPHOCYTES # (AUTO) 0.4 X 10^3 (1.0-4.0); LYMPHOCYTES % (AUTO) 3 % (12-44); MEAN CORPUSCULAR HEMOGLOBIN 30 PG (25-34); MEAN CORPUSCULAR HGB CONC 31 G/DL (32-36); MEAN CORPUSCULAR VOLUME 96 FL (80-99); MEAN PLATELET VOLUME 9.1 FL (7.4-10.4); MONOCYTES # (AUTO) 0.2 X 10^3 (0.0-1.0); MONOCYTES % (AUTO) 2 % (0-12); NEUTROPHILS # (AUTO) 10.7 X 10^3 (1.8-7.8); NEUTROPHILS % (AUTO) 94 % (42-75); PLATELET COUNT 241 10^3/uL (130-400); RED CELL DISTRIBUTION WIDTH 15.1 % (10.0-14.5); WHITE BLOOD COUNT 11.3 10^3/uL (4.3-11.0)
--- NOTE | 2019-01-20 03:39 | NUR ---
NOTIFIED E-ICU OF PT PLACED ON BIPAP AND HR IN 140'S.
[2019-01-20 03:42] LABS: BUN/CREATININE RATIO 22; CALCIUM 7.5 MG/DL (8.5-10.1); CARBON DIOXIDE 16 MMOL/L (21-32); CHLORIDE 109 MMOL/L (98-107); CREATININE SERUM 0.72 MG/DL (0.60-1.30); GFR ESTIMATED > 60; GLUCOSE 96 MG/DL (70-105); MAGNESIUM 1.8 MG/DL (1.6-2.4); PHOSPHORUS 3.4 MG/DL (2.3-4.7); POTASSIUM 3.4 MMOL/L (3.6-5.0); SODIUM 135 MMOL/L (135-145)
[2019-01-20] MEDS ORDERED: NS IV 500 ML 500 ML ONE (03:50)
[2019-01-20] MEDS ORDERED: NS IV 500 ML 500 ML IV ONE (04:00)
[2019-01-20] MEDS ORDERED: meTOprolol 5 MG/5 ML (LOPRESSOR) VIAL IV ONE (05:00)
[2019-01-20] MEDS: VASOPRESSIN INJECTION 20 UNIT in NORMAL SALINE 100 ML IV SCH ×3 (05:00→20:55)
[2019-01-20] MEDS: MAGNESIUM 1 GM/100 ML IVPB 100 ML IV SCH (05:01)
[2019-01-20] MEDS: POTASSIUM CL 10MEQ/50ML IVPB 50 ML IV SCH ×2 (05:01→05:36)
[2019-01-20] MEDS: KCL 20 MEQ TAB (K-DUR) PO SCH (05:01)
[2019-01-20] MEDS: NOREPINEPHRINE 4 MG in NS (IVPB) 250 ML IV SCH ×2 (08:10→20:13)
--- NOTE | 2019-01-20 08:15 | NUR ---
Report received and assuming care of patient. Pt resting with eyes closed but does awaken easily to verbal stimuli. She denies pain to me but is restless in bed, wants to sit up as high as she can. Repositions herself and sets off bed alarm. Pt is restless, using abdominal muscles to breath. Pt currently on vapotherm with adequate o2 sats. Pt has been refusing bipap. She is ashen colored and has mottling to bilateral lower extremities from him to toes, worse around knees and thighs. is at bedside. HR is Sinus tach 140's.
--- NOTE | 2019-01-20 08:37 | Diagnostic Imaging Report ---
INDICATION: Shortness of breath. COMPARISON: 01/19/2019. FINDINGS: 5 lobe interstitial lung disease progressed in density while some of this is chronic. Worsened pneumonia or edema suspected. Some partial atelectasis in the lung bases. Heart size stable. Subclavian line projects over the SVC does not extend beyond the level of the azygos arch. IMPRESSION: Worsened 5 lobe interstitial disease, edema versus pneumonia, mild basilar atelectasis. No pneumothorax. Unchanged positioning of central line at the mid to upper SVC level at the level of the azygos. Dictated by: Dictated on workstation # [id number]
--- NOTE | 2019-01-20 08:43 | History & Physical ---
History of Present Illness History of Present Illness Reason for visit/HPI 58 yo F with history of metastatic non-small cell lung cancer admitted for acute on chronic hypoxic respiratory failure. She was admitted and requiring 5 L oxygen. She is supposed to be on 2 L oxygen nasal cannula for the past 6 months but has not been using it. Patient initially presented to the ER complaining of pelvic pain which is not new but has not improved any. She has used hydrocodone but this has not been helping. 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 -Patient is currently on Vapotherm she was placed on BiPAP overnight as her oxygen saturation dropped into the 70s partially attributed to the IV fluids as well as opioids and benzodiazepines as her respiratory rate also dropped. She was on 250 mL an hour but has been backed off to 75. Patient also was placed on Zosyn and cefepime for sepsis coverage but on exam this morning I do not find that she has a suspected infection. Appears her metastatic cancer is progressing. Of note though she has been taking 4 mg dexamethasone for the past few months and effort to help with the dizziness and headaches associated with metastasis to her brain. Patient's at bedside and acknowledges she continually has gotten worse in her health. She has underwent chemotherapy and radiation. She had an oncology appt today. Discussion undertaken with patient to verify her CODE STATUS as the ER obtained a DO NOT RESUSCITATE. Patient communicated this with me as well that she does not desire intubation or CPR. Date of Admission Jan 19, 2019 at 17:00 Date Seen by a Provider: Jan 20, 2019 Time Seen by a Provider: 08:43 I consulted on this patient on 01/20/19 08:42 Attending Physician Mahin Willoughby MD Admitting Physician Mahin Willoughby MD Consult Allergies and Home Medications Allergies Coded Allergies: aspirin (Unverified Allergy, Unknown, 04/14/18) Home Medications Albuterol Sulfate 1 Puff Puff, 2 PUFF INH Q4H PRN for SHORTNESS OF BREATH, (Reported) 1 PUFF = 90 MCG Ascorbic Acid 500 Mg Capsule.er, 500 MG PO DAILY, (Reported) Cholecalciferol (Vitamin D3) 2,000 Unit Capsule, 2,000 UNIT PO DAILY, (Reported) Dexamethasone 4 Mg Tablet, 4 MG PO UD, (Reported) TAKE 1 TAB TWICE DAILY EXCEPT FOR THE DAY BEFORE, DAY OF, AND DAY AFTER CHEMO Guaifenesin 600 Mg Tab.er.12h, 600 MG PO DAILY, (Reported) Hydrocodone/Acetaminophen 1 Each Tablet, 1 TAB PO Q6H PRN for PAIN-MODERATE, (Reported) Ibuprofen 200 Mg Tablet, 400-600 MG PO BID PRN for PAIN-MILD, (Reported) Lorazepam 1 Mg Tablet, 1 MG PO TID PRN for ANXIETY, (Reported) Multivitamin 1 Each Tablet, 1 TAB PO DAILY, (Reported) Ondansetron HCl 8 Mg Tablet, 8 MG PO Q8H PRN for NAUSEA/VOMITING-1ST LINE, (Reported) Pantoprazole Sodium 40 Mg Tablet.dr, 40 MG PO DAILY, (Reported) Prochlorperazine Maleate 10 Mg Tablet, 10 MG PO Q6H PRN for NAUSEA/VOMITING-4TH LINE, (Reported) Ubidecarenone 100 Mg Capsule, 100 MG PO DAILY, (Reported) Venlafaxine HCl 150 Mg Cap.er.24h, 150 MG PO DAILY, (Reported) [Magic Mouthwash] , 5-10 ML PO QID PRN for MOUTH SORES, (Reported) LIDOCAINE/ANTACID/BENADRYL Patient Home Medication List Home Medication List Reviewed: Yes Past Eiobrkx-Powqpw-Bhodum Hx Patient Social History Alcohol Use: Denies Use Recreational Drug Use: No Smoking Status: Current Everyday Smoker Type Used: Cigarettes 2nd Hand Smoke Exposure: No Recent Foreign Travel: No Contact w/other who traveled: No Recent Hopitalizations: No Recent Infectious Disease Expo: No Immunizations Up To Date Date of Influenza Vaccine: Jan 18, 2018 Seasonal Allergies Seasonal Allergies: Yes Surgeries Yes Ear Surgery, Hysterectomy Respiratory Yes (lung cancer) Cardiovascular No Neurological No Genitourinary No Gastrointestinal No Musculoskeletal No Endocrine History of Endocrine Disorders: No HEENT History of HEENT Disorders: No Cancer Yes (STAGE 4) Brain, Lung Type of Treatment: Chemotherapy Psychosocial History of Psychiatric Problem: No Integumentary History of Skin or Integumenta: No Blood Transfusions History of Blood Disorders: No Review of Systems Review of Systems General: No Chills, No Night Sweats HEENT: Head Aches Pulmonary: Dyspnea, Cough Cardiovascular: Palpitations; No: Chest Pain Gastrointestinal: No: Nausea, Vomiting, Abdominal Pain Genitourinary: No Dysuria Neurological: Weakness, Confusion Physical Exam Vital Signs Vital Signs - First Documented 01/19/19 01/19/1919 13:32 13:50 00:00 Temp 37.0 Pulse 133 Resp 22 B/P (MAP) 91/52 (65) Pulse Ox 94 O2 Delivery Nasal Cannula O2 Flow Rate 2.00 FiO2 70 Capillary Refill : Less Than 3 Seconds Height, Weight, BMI Height: 5'3.00" Weight: 122lbs. 0.0oz. [id number]; 21.00 BMI Method:Stated General Appearance: Moderate Distress HEENT: PERRL/EOMI Respiratory: Chest Non Tender, Decreased Breath Sounds (bases, a little wet. ) Cardiovascular: Tachycardia Gastrointestinal: Non Tender, Soft Neurologic/Psychiatric: Alert, Oriented x3 Skin: Warm/Dry, Mottled (around the knees) Assessment/Plan Assessment/Plan Admission Dx acute on chronic hypoxic respiratory failure Admission Status: Inpatient Order (span 2 midnights) Reason for Inpatient Admission: Patient has acute on chronic respiratory failure- I would expect her to require 2 midnights to further evaluate. Given her comorbidities -She could rapidly decline- Assessment and Plan 01/20/19- admission -continue IVF at 75ml/hr -she is on vapotherm for respiratory support. -given she has been on dexamethasone for mets to the brain- she is adrenally suppressed. We will stress dose her with 0.2mg fludrocortisone daily x 2 days. Expect blood pressure to improve and tachycardia to improve as well. -will stop antibiotics as I do not suspect an infectious source for this hospitalization. Dispo: poor prognosis with her progressive decline in status, mottling of skin. Her mood also is down as well (understandably). She has considered palliative care/hospice but has not made the decision to proceed this route. Problems: (1) Acute and chronic respiratory failure with hypoxia Assessment & Plan: MAT RT consult (2) Steroid-induced adrenal suppression (3) Hypokalemia Assessment & Plan: replacing (4) Non-small cell carcinoma of right lung, stage 4 Assessment & Plan: Dr. Banegas (5) Metastatic primary lung cancer Qualifiers: Qualified Codes: C34.90 - Malignant neoplasm of unspecified part of unspecified bronchus or lung Clinical Quality Measures DVT/VTE Risk/Contraindication: Risk Factor Score Per Nursin RFS Level Per Nursing on Admit: 4+=Very High MAHIN WILLOUGHBY MD Jan 20, 2019 08:43
[2019-01-20] MEDS ORDERED: MAGIC MOUTHWASH PO (10:25)
[2019-01-20] MEDS ORDERED: DEXA4TAB PO (10:25)
[2019-01-20] MEDS ORDERED: ONDA8TAB12 PO (10:25)
[2019-01-20] MEDS ORDERED: PANT40TA3 PO (10:25)
[2019-01-20] MEDS ORDERED: VENL150C98 PO (10:25)
[2019-01-20] MEDS ORDERED: PROC10TA10 PO (10:25)
[2019-01-20] MEDS ORDERED: LORA1TAB PO (10:25)
[2019-01-20] MEDS ORDERED: HYDR-3812 PO (10:25)
--- NOTE | 2019-01-20 10:31 | NUR ---
I UPDATED MED REC WITH THE EXT MED HX AT THIS TIME. I HAVE NOT INTERVIEWED THE PATIENT, ASKED THAT THE NURSE CALL ME IF WE NEED TO FINALIZE MED REC.
--- NOTE | 2019-01-20 11:15 | NUR ---
Pastoral care visit, visited with pt and family, they advised they had called , I offered my support and prayer.
--- NOTE | 2019-01-20 11:16 | NUR ---
PALLIATIVE CARE RN consult received for this patient who is in [facility] hypoxic respiratory failure. 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 She has been getting treatment with Radiation and Chemotherapy.. She was scheduled for a chemo treatment today but is not healthy enough for this. Had an initial discussion with and patient as well as a repeat discussion when her son and daughter arrived. They understand her prognosis is poor. They are asking for 24 to 48 hours of time to see if the patient could make it out to see her recently born new grandson who is currently in [place]. I have let Dr. Willoughby and Dr. Alegria who will be covering starting at noon know of their wishes. On patient clinical presentation and observation..it does not appear that she will be successful. She is mottling to her knees, her ears are thinning and cyanotic. She has very labored respirations even with the Dilaudid she is getting PRN. She is sitting up to breath, is diaphoretic and looks like she is not comfortable. She does not want to increase her medication for air hunger at this time because she does not want to be too sleepy.
--- NOTE | 2019-01-20 11:44 | NUR ---
Pt HR continues upper 140's. Mottling to lower extremities worsened with deeper purple noticed. Palliative care has been in to talk with patient for a long while and family/patient opted to not go on hospice at this time. Notified Dr. Willoughby of condition and order received for Lasix 20mg IVP Once. Pt placed on Bipap at 70% fi02 as daughter "persuaded her into it." She immediately is resting with eyes closed when bipap is placed. Monitoring her closely.
[2019-01-20] MEDS ORDERED: FUROSEMIDE 40 MG/4 ML INJ (LASIX) ONE (12:33)
[2019-01-20] MEDS: FLUDROCORTISONE 0.1 MG (FLORINEF) TAB PO SCH (12:36)
[2019-01-20] MEDS ORDERED: FUROSEMIDE 40 MG/4 ML INJ (LASIX) IVP NR (12:45)
--- NOTE | 2019-01-20 13:30 | NUR ---
Pts tie binder is at bedside, pt wants bipap off. Bipap removed per patients wishes and placed on Vapotherm. HR continues in 140's with multiple family members at bedside.
--- NOTE | 2019-01-20 13:35 | Consultation ---
History of Present Illness History of Present Illness Patient Consulted On(jesus alberto/time) 01/20/19 13:29 Date Seen by Provider: Jan 20, 2019 Time Seen by Provider: 13:30 History of Present Illness Mrs. Wyatt is a 58 yo female with metastatic NSCLC who progressed recently on chemoimmunotherapy. She is currently on palliative single agent docetaxel, which she started on 12/28/18 and has only had one treatment so far. She was admitted last night with acute hypoxic respiratory failure with a clear chest x- ray, but bilateral pulmonary infiltrates have appeared within 24 hours. Patient is currently on NIPPV and cannot relay a good history. Daughter and son are with her in the ICU room and they report patient has taken smoking back up, at least 1 ppd. Allergies and Home Medications Allergies Coded Allergies: aspirin (Unverified Allergy, Unknown, 04/14/18) Home Medications Albuterol Sulfate 1 Puff Puff, 2 PUFF INH Q4H PRN for SHORTNESS OF BREATH, (Reported) 1 PUFF = 90 MCG Ascorbic Acid 500 Mg Capsule.er, 500 MG PO DAILY, (Reported) Cholecalciferol (Vitamin D3) 2,000 Unit Capsule, 2,000 UNIT PO DAILY, (Reported) Dexamethasone 4 Mg Tablet, 4 MG PO UD, (Reported) TAKE 1 TAB TWICE DAILY EXCEPT FOR THE DAY BEFORE, DAY OF, AND DAY AFTER CHEMO Guaifenesin 600 Mg Tab.er.12h, 600 MG PO DAILY, (Reported) Hydrocodone/Acetaminophen 1 Each Tablet, 1 TAB PO Q6H PRN for PAIN-MODERATE, (Reported) Ibuprofen 200 Mg Tablet, 400-600 MG PO BID PRN for PAIN-MILD, (Reported) Lorazepam 1 Mg Tablet, 1 MG PO TID PRN for ANXIETY, (Reported) Multivitamin 1 Each Tablet, 1 TAB PO DAILY, (Reported) Ondansetron HCl 8 Mg Tablet, 8 MG PO Q8H PRN for NAUSEA/VOMITING-1ST LINE, (Reported) Pantoprazole Sodium 40 Mg Tablet.dr, 40 MG PO DAILY, (Reported) Prochlorperazine Maleate 10 Mg Tablet, 10 MG PO Q6H PRN for NAUSEA/VOMITING-4TH LINE, (Reported) Ubidecarenone 100 Mg Capsule, 100 MG PO DAILY, (Reported) Venlafaxine HCl 150 Mg Cap.er.24h, 150 MG PO DAILY, (Reported) [Magic Mouthwash] , 5-10 ML PO QID PRN for MOUTH SORES, (Reported) LIDOCAINE/ANTACID/BENADRYL Patient Home Medication List Home Medication List Reviewed: Yes Past Oefzlud-Jnugwv-Dkicjc Hx Patient Social History Alcohol Use: Denies Use Recreational Drug Use: No Smoking Status: Current Everyday Smoker Type Used: Cigarettes 2nd Hand Smoke Exposure: No Recent Foreign Travel: No Contact w/Someone Who Travel: No Recent Infectious Disease Expo: No Recent Hopitalizations: No Physical Abuse: No Sexual Abuse: No Immunizations Up To Date Date of Influenza Vaccine: Jan 18, 2018 Seasonal Allergies Seasonal Allergies: Yes Past Medical History Surgeries: Yes Ear Surgery, Hysterectomy Respiratory: Yes (lung cancer) COPD Cardiac: No Neurological: No Genitourinary: No Gastrointestinal: No Musculoskeletal: No Endocrine: No HEENT: No Cancer: Yes (STAGE 4) Brain, Lung What Type of Treatment Did You: Chemotherapy Psychosocial: No Integumentary: No Blood Disorders: No Review of Systems-General Constitutional: weakness EENTM: hearing loss Respiratory: cough, short of breath Cardiovascular: no symptoms reported Gastrointestinal: no symptoms reported Genitourinary: no symptoms reported Musculoskeletal: joint pain Skin: no symptoms reported Psychiatric/Neurological: Headache Physical Exam-General Problems Physical Exam Vital Signs Vital Signs - First Documented 01/19/19 01/19/19 01/20/19 13:32 13:50 00:00 Temp 37.0 Pulse 133 Resp 22 B/P (MAP) 91/52 (65) Pulse Ox 94 O2 Delivery Nasal Cannula O2 Flow Rate 2.00 FiO2 70 Capillary Refill : Less Than 3 Seconds General Appearance: WD/WN, severe distress Eyes: Bilateral Eye Normal Inspection HEENT: other (limited exam due to BiPAP) Neck: supple Respiratory: decreased breath sounds, accessory muscle use, other (limited exam due to extensive vocalization) Cardiovascular: no edema, tachycardia Gastrointestinal: non tender, soft Extremities: normal range of motion, normal inspection, no pedal edema Neurologic/Psychiatric: alert, normal mood/affect, oriented x 3 Skin: normal color, warm/dry Lymphatic: no adenopathy Assessment/Plan Assessment/Plan Admission Diagnosis/Plan 58 yo female with metastatic and progressive NSCLC was admitted with acute hypoxic respiratory failure. On review of CT head and abdomen/pelvis, there does not seem to be any clear progression of her cancer. I am unclear as to the significance of the enteral wall thickening and peritoneal stranding, but exam is not consistent with peritonitis and it is not a typical presentation for metastatic disease. I had an extensive discussion with the daughter, who believes that, unless her acute illness is related to cancer progression, the patient and family do not want to pursue hospice at this time. I am in ag reement with this plan since we do not have clear evidence of progression. However, I did make it clear to the patient's family that, regardless of how reversible her current condition is, her overall prognosis is extremely poor. She has a very borderline performance status, and the probability of her being able to continue with chemotherapy is suspect. In terms of the hypoxic respiratory failure, there is a possibility of docetaxel induced interstitial pneumonitis, but it is essentially a diagnosis of e xclusion. I would first rule out other causes such as metastatic thoracic progression, PE, and infectious disease. If we were to go by the book, we should at least get CT chest with contrast and bronchoscopy with washings and cultures, if patient and family are willing. Treatment is essentially high dose glucocorticoids; methylprednisolone better than hydrocortisone. Thank you for allowing me to participate in the care of Mrs. Wyatt. Dr. March will be covering for the weekend. Clinical Quality Measures DVT/VTE Risk/Contraindication: Risk Factor Score Per Nursin RFS Level Per Nursing on Admit: 4+=Very High Results Labs Labs Laboratory Tests 01/19/19 14:41: White Blood Count 14.3H, Red Blood Count 4.03L, Hemoglobin 12.2, Hematocrit 39, Mean Corpuscular Volume 96, Mean Corpuscular Hemoglobin 30, Mean Corpuscular Hemoglobin Concent 32, Red Cell Distribution Width 15.1H, Platelet Count 306, Mean Platelet Volume 9.0, Neutrophils (%) (Auto) 91H, Lymphocytes (%) (Auto) 6L, Monocytes (%) (Auto) 3, Eosinophils (%) (Auto) 0, Basophils (%) (Auto) 0, Neutrophils # (Auto) 12.9H, Lymphocytes # (Auto) 0.9L, Monocytes # (Auto) 0.4, Eosinophils # (Auto) 0.1, Basophils # (Auto) 0.0, Neutrophils % (Manual) 86, Lymphocytes % (Manual) 6, Monocytes % (Manual) 1, Eosinophils % (Manual) 0, Ba sophils % (Manual) 0, Myelocytes % 1, Band Neutrophils 6, Anisocytosis SLIGHT, Prothrombin Time 14.3, INR Comment 1.1, Activated Partial Thromboplast Time 26, Sodium Level 132L, Potassium Level 4.0, Chloride Level 98, Carbon Dioxide Level 22, Anion Gap 12, Blood Urea Nitrogen 20H, Creatinine 0.83, Estimat Glomerular Filtration Rate > 60, BUN/Creatinine Ratio 24, Glucose Level 55*L, Lactic Acid Level 2.17*H, Calcium Level 8.6, Corrected Calcium 9.1, Total Bilirubin 0.4, Aspartate Amino Transf (AST/SGOT) 22, Alanine Aminotransferase (ALT/SGPT) 8, Alkaline Phosphatase 102, Total Protein 6.6, Albumin 3.4 01/19/19 16:25: Glucometer 94 01/19/19 16:40: Urine Color YELLOW, Urine Clarity CLEAR, Urine pH 5, Urine Specific [place] 1.015L, Urine Protein 2+H, Urine Glucose (UA) NEGATIVE, Urine Ketones 1+H, Urine Nitrite NEGATIVE, Urine Bilirubin NEGATIVE, Urine Urobilinogen 1, Urine Leukocyte Esterase 1+H, Urine RBC (Auto) NEGATIVE, Urine RBC NONE, Urine WBC 0- 2, Urine Squamous Epithelial Cells 2-5, Urine Crystals NONE, Urine Bacteria FEWH , Urine Casts PRESENT, Urine Hyaline Casts 0-2H, Urine Mucus SMALLH, Urine Culture Indicated CULTURE PENDING 01/19/19 16:54: Blood Gas Puncture Site LEFT RADIAL, Blood Gas Patient Temperature 36.9, Arterial Blood pH 7.40, Arterial Blood Partial Pressure CO2 26L, Arterial Blood Partial Pressure O2 77L, Arterial Blood HCO3 16*L, Arterial Blood Total CO2 16.6L, Arterial Blood Oxygen Saturation 95, Arterial Blood Base Excess -8.2L, Luis Test POSITIVE, Blood Gas Ventilator Setting NO, Blood Gas Inspired Oxygen 4 L 01/19/19 16:56: Lactic Acid Level 3.58*H 01/19/19 21:25: Lactic Acid Level 3.87*H 01/19/19 22:40: Glucometer 64L 01/19/19 23:20: Lactic Acid Level 2.89*H 01/19/19 23:43: Glucometer 58*L 01/20/19 00:29: Glucometer 99 01/20/19 03:16: White Blood Count 11.3H, Red Blood Count 3.74L, Hemoglobin 11.2L, Hematocrit 36, Mean Corpuscular Volume 96, Mean Corpuscular Hemoglobin 30, Mean Corpuscular Hemoglobin Concent 31L, Red Cell Distribution Width 15.1H, Platelet Count 241, Mean Platelet Volume 9.1, Neutrophils (%) (Auto) 94H, Lymphocytes (%) (Auto) 3L, Monocytes (%) (Auto) 2, Eosinophils (%) (Auto) 0, Basophils (%) (Auto) 0, Neutrophils # (Auto) 10.7H, Lymphocytes # (Auto) 0.4L, Monocytes # (Auto) 0.2, Eosinophils # (Auto) 0.0, Basophils # (Auto) 0.0, Sodium Level 135, Potassium Level 3.4L, Chloride Level 109H, Carbon Dioxide Level 16L, Anion Gap 10, Blood Urea Nitrogen 16, Creatinine 0.72, Estimat Glomerular Filtration Rate > 60, BUN/Creatinine Ratio 22, Glucose Level 96, Calcium Level 7.5L, Phosphorus Level 3.4, Magnesium Level 1.8 01/20/19 09:35: Glucometer 83 01/20/19 12:46: Glucometer 79 Microbiology 01/19/19 Influenza Types A,B Antigen (SULTANA) - Final, Complete Procedures Procedures Date of Exam: 01/19/19 CT HEAD WO INDICATION: Dizziness, history of cochlear implant. Noncontrast brain CT is performed and compared to 11/24/2018. There are mild diffuse atrophic changes. There are no extra-axial fluid collections. No intracranial hemorrhage. There is metallic artifact from the patient's cochlear implant on the right side. These findings are unchanged compared to the previous study. There appears to be a hypodense area in the right cerebellum. This shows much less mass effect than on 11/24/2018 and may be due to resolving mass lesion. Calvarial windows show no abnormality, aside from the patient's cochlear implant. IMPRESSION: Compared to the prior study of 11/24/2018, there appears to be considerably less mass effect in the left cerebellum with some mild residual underlying hypodensity. The fourth ventricle is more normal in size. Suspect treatment of underlying lesion, correlate with clinical findings. Date of Exam: 01/19/19 CHEST 1 VIEW, AP/PA ONLY INDICATION: Dizziness. Weakness. Slurred speech. COMPARISON: 05/18/2018. FINDINGS: Single frontal view of the chest demonstrates normal heart size and pulmonary vascularity. The lungs are well aerated and clear. No large pleural effusion or pneumothorax is seen. The visualized osseous structures show no acute abnormalities. Left subclavian Port-A-Cath is noted with tip in the high SVC. IMPRESSION: 1. No acute cardiopulmonary process. Date of Exam: 01/20/19 CHEST 1 VIEW, AP/PA ONLY INDICATION: Shortness of breath. COMPARISON: 01/19/2019. FINDINGS: 5 lobe interstitial lung disease progressed in density while some of this is chronic. Worsened pneumonia or edema suspected. Some partial atelectasis in the lung bases. Heart size stable. Subclavian line projects over the SVC does not extend beyond the level of the azygos arch. IMPRESSION: Worsened 5 lobe interstitial disease, edema versus pneumonia, mild basilar atelectasis. No pneumothorax. Unchanged positioning of central line at the mid to upper SVC level at the level of the azygos. Date of Exam: 01/19/19 CT ABDOMEN/PELVIS W PROCEDURE: CT abdomen and pelvis with contrast. TECHNIQUE: Multiple contiguous axial images were obtained through the abdomen and pelvis after administration of intravenous contrast. Auto Exposure Controls were utilized during the CT exam to meet ALARA standards for radiation dose reduction. DATE: January 19, 2019. COMPARISON: CT chest, abdomen and pelvis December 27, 2018. INDICATION: 58-year-old female, history of lung cancer on chemotherapy. History of metastatic disease. FINDINGS: There is a spiculated right lower lobe pulmonary nodule on axial image 6 measuring 1.9 x 1.7 cm in axial dimension. On December 27, 2018, this previously measures approximately 2.0 x 2.0 cm in size. This is essentially unchanged to perhaps minimally decreased in size since the very recent comparison exam. There are mild dependent linear opacities in the right and left lower lobes most likely relating to atelectasis. The heart is not enlarged. There is a very small amount of pericardial fluid. There is a left periaortic lymph node on axial image 8 measuring 10 mm in short axis which is unchanged since recent exam. The liver is normal in size and contour. There is no identified liver lesion. The main, right, and left portal veins are patent. The gallbladder is unremarkable. There is no intrahepatic or extrahepatic bile duct dilation. The main pancreatic duct is not abnormally dilated. The pancreatic parenchyma is unremarkable. The spleen is not enlarged. There is a left adrenal mass which is ill-defined and heterogeneous in attenuation which measures roughly 4.5 x 2.9 cm in axial extent. This is essentially unchanged since December 27, 2018. There is a low-attenuation lesion which directly abuts the left iliopsoas muscle at its upper aspect and also abuts the left kidney and measures 2.6 x 1.8 cm in size. This is largely unchanged since December 27, 2018. There does appear to be peripheral enhancement of the medial aspect of the lesion or at least high peripheral attenuation. The right adrenal gland is unremarkable. Additional evaluation of the renal parenchyma is unremarkable. The urinary collecting systems are not distended. The urinary bladder is unremarkable. The uterus is not seen and may be surgically absent. There is diverticulosis without evidence of acute diverticulitis. There is abnormal mucosal enhancement and wall thickening of the sigmoid colon which is a fairly long segment in length. There is a distorted contour of the colon in the region of the cecum which is a change in appearance since comparison exam. There is distortion and swirling of the contours within the peritoneal cavity such as on axial image 64 and adjacent sequential images which is also a new finding. There is abnormal mesenteric edema as well as peritoneal strandiness anteriorly. There are abnormal mildly distended fluid-filled segments of small bowel such as in the left abdomen on axial image 52 and adjacent sequential images. The findings within the peritoneal cavity as well as abnormal small bowel dilation and abnormal mucosal enhancement of the sigmoid colon are all interval new findings. There is no identified well-demarcated drainable fluid collection. There is no free intraperitoneal air. There is a small amount of free pelvic fluid. There are atherosclerotic calcifications. There are subcentimeter short axis left retroperitoneal lymph nodes. There is a destructive bone lesion involving the left iliac bone with loss of normal iliac cortex on axial image 60 which is unchanged in size since December 27, 2018. There are degenerative changes of the spine. IMPRESSION: CT ABDOMEN AND PELVIS. 1. Redemonstrated extensive multifocal metastatic disease with largely unchanged appearance since December 27, 2018. 2. New abnormal mucosal enhancement and wall thickening of the sigmoid colon of long segment length as well as abnormal distortion and swelling of contours in the peritoneal cavity, focal abnormal fluid filled segment of small bowel, mesenteric edema, and peritoneal strandiness. The abnormal appearance of the bowel may reflect an infectious or inflammatory enteritis and colitis. 3. Peritoneal stranding could relate to peritoneal carcinomatosis and/or peritonitis. No drainable fluid collection or free intraperitoneal air. SHEA MOJICA MD Jan 20, 2019 13:35
[2019-01-20] MEDS ORDERED: meTOprolol TARTRATE 25 MG (LOPRESSOR) TABLET PO NR (14:30)
--- NOTE | 2019-01-20 14:54 | NUR ---
Met with pt briefly who was able to talk and visit with family prior to being placed on Vapotherm. Daughter and son state that at this time pt and family not ready for pt to be on Hospice services. Discussed Home Health care option which is not continual care. Pt's has to continue to work full-time and there is no other caregiver in the home. also states he is unable to afford private caregivers or residential care. Pt would like to be able to see her grandson who is apparently being discharged home today from [facility], states that Eloise benefited from talking with her forest supervisor today and told she was at peace. Will follow and assist with continued care plans.
[2019-01-20] MEDS: NICOTINE PATCH REMOVAL TP SCH (20:00)
--- NOTE | 2019-01-20 20:20 | NUR ---
Dr Alegria called at this time, updated on pt and discussed plan of care. Pt requesting pain medication, blood pressure is soft, ok to use Levophed.
[2019-01-20] MEDS ORDERED: DEXTROSE 50% 50 ML (IMS) SYR ONE (20:26)
[2019-01-20] MEDS: NICOTINE 21 MG (NICODERM) PATCH TD SCH (20:28)
[2019-01-20] MEDS: HYDROcodone/APAP 5 MG/325 MG (LORTAB) TAB PO PRN (20:29)
[2019-01-20] MEDS ORDERED: DEXTROSE 50% 50 ML (IMS) SYR IV NR (20:30)
--- NOTE | 2019-01-20 20:52 | NUR ---
Dr Alegria notified of pt condition and low blood sugar reading. Orders received to increase IVF to 100 ml/hr.
--- NOTE | 2019-01-20 21:55 | NUR ---
Pt sitting up in bed, stating she is having a panic attack. Therapeutic communication attempted, at bedside, calming and breathing techniques implemented.
[2019-01-21] VITALS (25 sets, daily range): BP systolic 85–120; BP diastolic 45–93
[2019-01-21] MEDS: D5 NS 1000 ML IV SOLUTION 1,000 ML IV SCH ×3 (01:24→23:46)
[2019-01-21] MEDS: RT-ALBUTEROL/IPRATROPIUM 3 ML (DUONEB) VIAL INH SCH ×6 (02:40→22:16)
[2019-01-21] MEDS: HYDROcodone/APAP 5 MG/325 MG (LORTAB) TAB PO PRN ×2 (02:49→09:32)
[2019-01-21] MEDS: LORazepam 1 MG (ATIVAN) TAB PO PRN ×3 (02:50→22:37)
[2019-01-21] MEDS: VASOPRESSIN INJECTION 20 UNIT in NORMAL SALINE 100 ML IV SCH ×3 (05:39→22:37)
[2019-01-21] MEDS: POTASSIUM CL 10MEQ/50ML IVPB 50 ML IV SCH (05:39)
[2019-01-21] MEDS: KCL 20 MEQ TAB (K-DUR) PO SCH (05:39)
[2019-01-21] MEDS: MAGNESIUM 1 GM/100 ML IVPB 100 ML IV SCH (05:39)
[2019-01-21] MEDS: FLUDROCORTISONE 0.1 MG (FLORINEF) TAB PO SCH (06:10)
[2019-01-21 07:32] LABS: BASOPHILS % (AUTO) 0 % (0-10); EOSINOPHILS % (AUTO) 0 % (0-10); HEMATOCRIT 29 % (35-52); HEMOGLOBIN 9.1 G/DL (11.5-16.0); LYMPHOCYTES # (AUTO) 0.3 X 10^3 (1.0-4.0); LYMPHOCYTES % (AUTO) 3 % (12-44); MEAN CORPUSCULAR HEMOGLOBIN 30 PG (25-34); MEAN CORPUSCULAR HGB CONC 32 G/DL (32-36); MEAN CORPUSCULAR VOLUME 95 FL (80-99); MONOCYTES # (AUTO) 0.2 X 10^3 (0.0-1.0); MONOCYTES % (AUTO) 2 % (0-12); NEUTROPHILS % (AUTO) 95 % (42-75); PLATELET COUNT 267 10^3/uL (130-400); RED CELL DISTRIBUTION WIDTH 15.4 % (10.0-14.5); WHITE BLOOD COUNT 11.5 10^3/uL (4.3-11.0)
--- NOTE | 2019-01-21 08:02 | Diagnostic Imaging Report ---
CLINICAL INDICATION: Patient with dyspnea, sepsis and hypoxia. Patient has history of lung cancer with metastases. Exam: Portable chest x-ray upright view. Comparisons: Chest x-ray dated 01/20/2019. Findings: There is interval progression of diffuse airspace opacities and interstitial thickening. There is blunting of the left costophrenic angle and a small left pleural effusion may be considered. Pulmonary vasculature is obscured. Cardiac silhouettes within normal limits. There are degenerative spurs involving the thoracic spine. IMPRESSION: 1: There is interval progression of diffuse bilateral lung infiltrates and interstitial thickening. These findings are concerning for lung infiltrates or interstitial edema. 2: Progression of possible small left pleural effusion. Dictated by: Dictated on workstation # [id number]
[2019-01-21 08:08] LABS: BUN/CREATININE RATIO 23; CALCIUM 7.6 MG/DL (8.5-10.1); CARBON DIOXIDE 12 MMOL/L (21-32); CHLORIDE 105 MMOL/L (98-107); CREATININE SERUM 0.78 MG/DL (0.60-1.30); GFR ESTIMATED > 60; GLUCOSE 85 MG/DL (70-105); MAGNESIUM 1.7 MG/DL (1.6-2.4); POTASSIUM 3.6 MMOL/L (3.6-5.0); SODIUM 131 MMOL/L (135-145)
[2019-01-21] MEDS ORDERED: NON-FORMULARY MEDICATION 1 EA EA (Hydrocodone/Acetaminophen (Hydrocodone-Acetamin 5-325 mg PO PRN (09:00)
[2019-01-21] MEDS ORDERED: NON-FORMULARY MEDICATION 1 EA EA (Venlafaxine HCl (Venlafaxine HCl ER) 150 MG) PO SCH (09:00)
[2019-01-21] MEDS ORDERED: PROCHLORPERAZINE 10 MG TAB (COMPAZINE) PO PRN (09:00)
[2019-01-21] MEDS ORDERED: NON-FORMULARY MEDICATION 1 EA EA (Ondansetron HCl 8 MG) PO PRN (09:00)
--- NOTE | 2019-01-21 09:40 | Progress Note - Hospitalist ---
Subjective HPI/CC On Admission Date Seen by Provider: Jan 21, 2019 Time Seen by Provider: 09:40 Subjective/Events-last exam Pt reports feeling better. Breathing is improved. She is maxed on vapotherm and asking to go home. Focused Exam Lactate Level 01/19/19 16:56: Lactic Acid Level 3.58*H 01/19/19 21:25: Lactic Acid Level 3.87*H 01/19/19 23:20: Lactic Acid Level 2.89*H Objective Exam Vital Signs Vital Signs Date Time Temp Pulse Resp B/P (MAP) Pulse Ox O2 Delivery O2 Flow Rate FiO2 01/21/19 12:00 133 23 /76 Vapotherm 40.00 100.00 01/21/19 11:00 92 01/21/19 10:06 100 01/20/19 23:36 35.9 Capillary Refill : Greater Than 3 Seconds General Appearance: Chronically ill, Moderate Distress Respiratory: No Accessory Muscle Use, Decreased Breath Sounds, Respiratory Distress Cardiovascular: No Murmur, Tachycardia Gastrointestinal: Normal Bowel Sounds, Non Tender, Soft Neurologic/Psychiatric: Alert, Other (oriented to person and place and most details of admission, hard of hearing) Skin: Mottled (to knees bilaterally) Results/Procedures Lab Laboratory Tests 01/21/19 07:26 Patient resulted labs reviewed. Assessment/Plan Assessment and Plan Assess & Plan/Chief Complaint Acute on Chronic Respiratory Failure Metastatic Lung Cancer Maxed on Vapotherm Discussed goals of care and pt not "ready for hospice" and "wants to fight" in her words Readressed code status and still desires to be a DNR- discussed poor prognosis with her who seems to be understanding Will continue Zosyn given worsening CXR Solu Medrol ordered BiPAP prn Pulm consulted appreciate recs, discussed with Dr Dixon who will see in AM Oncology consulted, appreciate recs Palliative Care Consulted Generalized Anxiety Disorder Resume Effexor and Ativan from home meds Adrenal insufficiency due to chronic steroid use Solu Medrol ordered Metastatic Cancer with mets to bones Continue pain regimen Constipation Bowel regimen ordered Anemia Likely due to chronic disease Consider transfusion if continues to drop Diagnosis/Problems Diagnosis/Problems (1) Acute and chronic respiratory failure with hypoxia (2) Steroid-induced adrenal suppression (3) Non-small cell carcinoma of right lung, stage 4 (4) Metastatic primary lung cancer Status: Acute Qualifiers: Laterality: unspecified laterality Qualified Codes: C34.90 - Malignant neoplasm of unspecified part of unspecified bronchus or lung Clinical Quality Measures DVT/VTE Risk/Contraindication: Risk Factor Score Per Nursin RFS Level Per Nursing on Admit: 4+=Very High ETHEL BERRY MD Jan 21, 2019 9:40 am
[2019-01-21] MEDS ORDERED: BISACODYL 10 MG SUPP (DULCOLAX) PR PRN (09:45)
[2019-01-21] MEDS ORDERED: ONDANSETRON 4 MG (ZOFRAN) ORAL DISSOLVE TAB PO PRN (09:45)
[2019-01-21] MEDS: MULTIVIT W/MINERALS TAB (THERAGRAN M) PO SCH (10:12)
[2019-01-21] MEDS: guaiFENesin (MUCINEX) 600 MG TAB PO SCH (10:12)
[2019-01-21] MEDS: NOREPINEPHRINE 4 MG in NS (IVPB) 250 ML IV SCH ×2 (10:12→20:39)
[2019-01-21] MEDS: PANTOPRAZOLE 40 MG (PROTONIX) TAB PO SCH (10:12)
[2019-01-21] MEDS: HYDROmorphone 2 MG/ML VIAL (DILAUDID) IV PRN (11:38)
[2019-01-21] MEDS ORDERED: methylPREDNISolone 40 MG/ML (Solu-MEDROL) VIAL IV NR (12:30)
[2019-01-21] MEDS ORDERED: PIPERACILLIN/TAZO 4.5 GM/NS 100 ML IV NR ×2 (12:45)
--- NOTE | 2019-01-21 14:18 | NUR ---
PT'S SISTER AT BEDSIDE AND ASKING ABOUT A VQ SCAN AND OR A CTA, AND LOVENOX. DR BERRY NOTIFIED NEW ORDERS RECEIVED.
[2019-01-21] MEDS: HYDROcodone/APAP 10 MG/325 MG (LORTAB) TAB PO PRN (14:28)
[2019-01-21] MEDS: ENOXAPARIN 40 MG/0.4 ML (LOVENOX) SYR SQ SCH (14:28)
[2019-01-21] MEDS: LACTOBACILLUS ACIDOPHILUS (PROBIOTIC) CAPSULE PO SCH (17:30)
[2019-01-21] MEDS: methylPREDNISolone 40 MG/ML (Solu-MEDROL) VIAL IV SCH ×2 (18:04→23:46)
[2019-01-21] MEDS: PIPERACILLIN/TAZOBACTAM (BULK) 4.5 GM in NS (IVPB) 100 ML IV SCH (18:04)
[2019-01-21] MEDS ORDERED: IOHEXOL 350 MG/ML 100 ML (OMNIPAQUE 350) VIAL IV ONE (18:30)
[2019-01-21] MEDS ORDERED: HOLD METFORMIN - RECEIVED CONTRAST 20 ML VIAL IV SCH (18:30)
[2019-01-21] MEDS ORDERED: CATHETER FLUSH 10 ML SYR IV PRN (18:30)
[2019-01-21] MEDS ORDERED: NS 100 ML (IVPB) BAG IV ONE (18:30)
--- NOTE | 2019-01-21 19:07 | Diagnostic Imaging Report ---
PROCEDURE: CT angiography of the chest with contrast. TECHNIQUE: Multiple contiguous axial images were obtained through the chest after uneventful bolus administration of intravenous contrast. 3D reconstructed CTA MIP acquisitions were also performed. Auto Exposure Controls were utilized during the CT exam to meet ALARA standards for radiation dose reduction. INDICATION: Difficulty breathing, lung cancer. FINDINGS: The previous CT chest, abdomen, and pelvis exam on 12/27/2018 noted interval disease progression of the patient's lung carcinoma. Specifically, there were enlarging lymph nodes within the mediastinum as well as new soft tissue metastases superficial to the sternum. There was also enlargement of the left adrenal mass and left perirenal mass. On this exam, the appearance of the chest has worsened considerably as there are now diffuse groundglass densities throughout both lungs. This would correspond to the findings of the chest exam performed earlier today. This could be related to pneumonia, atelectasis, and/or pulmonary edema or a combination of all 3. Small bilateral pleural effusions have also developed. In addition, there is now a sizable pericardial effusion measuring 1.7 cm in maximum diameter. The 2.0 x 2.0 cm mass in the right lung base seen previously is partially obscured but also seems to have increased in size. This mass now measures 1.9 x 2.4 cm. The mediastinal adenopathy seen on the prior exam is also greater than noted on the prior exam. The heart itself is stable in size. The aorta is not abnormally dilated and there is no sign of dissection. There is no defect within the pulmonary arteries to indicate a pulmonary embolus. The sections through the upper abdomen reveal that in the interval since the prior exam, a moderate amount of fluid has developed about the right lobe of the liver. The fluid measures approximately 2 cm in maximum depth. There is also some fluid about the spleen. The 3.0 x 4.5 cm left adrenal mass noted on the prior study is now estimated to be 3.1 x 4.8 cm. The bone windows show no new destructive lesion. IMPRESSION: 1. The appearance of the chest has worsened since the prior study as diffuse alveolar/interstitial pulmonary infiltrates have developed. These may be related to pneumonia/atelectasis and/or pulmonary edema or a combination of all 3.. There is also now a sizable pericardial effusion. There is no sign of a pulmonary embolus or of a dissection, however. 2. The neoplastic disease seen on the previous study has also progressed. Dictated by: Dictated on workstation # [id number]
--- NOTE | 2019-01-21 20:00 | NUR ---
Dr Woodard at bedside to talk to family
[2019-01-21] MEDS: NICOTINE 21 MG (NICODERM) PATCH TD SCH (20:38)
[2019-01-21] MEDS: NICOTINE PATCH REMOVAL TP SCH (20:38)
[2019-01-21] MEDS: inSUlin ASPART (NovoLOG) 1 UNIT/0.01 ML (CHARGE PER UNIT) SQ SCH (21:00)
--- NOTE | 2019-01-21 21:36 | Consultation-Cardiology ---
HPI-Cardiology Cardiology Consultation: Date of Consultation 01/21/19 Time Seen by a Provider: 19:45 Date of Admission Attending Physician Mahin Willoughby MD Admitting Physician Mahin Willoughby MD Consulting Physician ELIZABETH ABDI MD, MA, FACP, FACC, [facility], CCDS Physician requesting consult: Dr Alegria HPI: Chief Complaint: Reason for consultation: Pericardial effusion HPI: 58 yo woman admitted to Dr Willoughby's Svce (Dr Alegria covering) who had a CT scan done today to evaluate her ac respiratory failure. This indicated, among other findings, a pericardial effusion for which Dr Alegria has asked us to see her. At time of my evaluation, patient is very somnolent and very difficult to arouse from her sleep; she is on BiPAP; family requested we let her rest; history was obtained from the family (her daughter and who were present by the bedside and her sister who was on the speaker phone). I also spoke with Dr Alegria on the phone. Family states she was admitted on 01/19/19 with increasing shortness of breath. She had not been reporting chest pain. She was markedly weak. Her oxygen sat uration was low. She has not had diandra syncope or leg swelling. She has not reported palpitations. Review of Systems-Cardiology Review of Systems Constitutional: other (Due to her somnolent status, she was not able to provide a review of systems. What could be obtained is described under HPI above) VYT-Yowfwr-Khxouk Hx Patient Social History Alcohol Use: Denies Use Recreational Drug Use: No Smoking Status: Current Everyday Smoker Type Used: Cigarettes 2nd Hand Smoke Exposure: No Recent Foreign Travel: No Recent Infectious Disease Expo: No Immunizations Up To Date Date of Influenza Vaccine: Jan 18, 2018 Past Medical History PMH As described under Assessment. Family Medical History Family Medical History: No fam h/o early CAD is recorded in the chart Allergies and Home Medications Allergies Coded Allergies: aspirin (Unverified Allergy, Unknown, 04/14/18) Home Medications Albuterol Sulfate 1 Puff Puff, 2 PUFF INH Q4H PRN for SHORTNESS OF BREATH, (Reported) 1 PUFF = 90 MCG Ascorbic Acid 500 Mg Capsule.er, 500 MG PO DAILY, (Reported) Cholecalciferol (Vitamin D3) 2,000 Unit Capsule, 2,000 UNIT PO DAILY, (Reported) Dexamethasone 4 Mg Tablet, 4 MG PO UD, (Reported) TAKE 1 TAB TWICE DAILY EXCEPT FOR THE DAY BEFORE, DAY OF, AND DAY AFTER CHEMO Guaifenesin 600 Mg Tab.er.12h, 600 MG PO DAILY, (Reported) Hydrocodone/Acetaminophen 1 Each Tablet, 1 TAB PO Q6H PRN for PAIN-MODERATE, (Reported) Ibuprofen 200 Mg Tablet, 400-600 MG PO BID PRN for PAIN-MILD, (Reported) Lorazepam 1 Mg Tablet, 1 MG PO TID PRN for ANXIETY, (Reported) Multivitamin 1 Each Tablet, 1 TAB PO DAILY, (Reported) Ondansetron HCl 8 Mg Tablet, 8 MG PO Q8H PRN for NAUSEA/VOMITING-1ST LINE, (Reported) Pantoprazole Sodium 40 Mg Tablet.dr, 40 MG PO DAILY, (Reported) Prochlorperazine Maleate 10 Mg Tablet, 10 MG PO Q6H PRN for NAUSEA/VOMITING-4TH LINE, (Reported) Ubidecarenone 100 Mg Capsule, 100 MG PO DAILY, (Reported) Venlafaxine HCl 150 Mg Cap.er.24h, 150 MG PO DAILY, (Reported) [Magic Mouthwash] , 5-10 ML PO QID PRN for MOUTH SORES, (Reported) LIDOCAINE/ANTACID/BENADRYL Patient Home Medication List Home Medication List Reviewed: Yes Physical Exam-Cardiology Physical Exam Vital Signs/I&O 01/21/19 01/21/19 01/21/19 01/21/19 10:00 10:06 11:00 12:00 Pulse 116 117 133 Resp 27 25 23 B/P (MAP) 102/69 (80) 112/76 (88) Pulse Ox 94 91 92 O2 Delivery Vapotherm Vapotherm Vapotherm Vapotherm O2 Flow Rate 40.00 40.00 40.00 40.00 100.00 100.00 100.00 FiO2 100 01/21/19 01/21/19 01/21/19 01/21/19 12:35 13:00 13:00 14:00 Pulse 118 120 135 Resp 20 24 B/P (MAP) 114/72 (86) O2 Delivery Vapotherm Vapotherm Vapotherm O2 Flow Rate 40.00 40.00 40.00 100.00 100.00 FiO2 100 01/21/19 01/21/19 01/21/19 01/21/19 14:43 14:50 15:00 16:00 Temp 36.2 Pulse 131 131 Resp 36 22 B/P (MAP) 112/75 (87) Pulse Ox 94 89 O2 Delivery NIV Bilevel NIV Bilevel O2 Flow Rate 60.00 60.00 60.00 01/21/19 01/21/19 01/21/19 01/21/19 16:00 16:50 17:00 18:00 Pulse 120 113 118 Resp 20 16 17 B/P (MAP) 101/76 (84) 96/73 (81) 102/73 (83) Pulse Ox 87 88 72 O2 Delivery NIV Bilevel NIV Bilevel NIV Bilevel NIV Bilevel O2 Flow Rate 60.00 60.00 60.00 FiO2 60 01/21/19 01/21/19 01/21/19 01/21/19 19:00 19:00 19:03 20:00 Pulse 108 108 112 108 Resp 15 19 20 B/P (MAP) 91/61 (71) 93/63 (73) Pulse Ox 90 91 92 O2 Delivery NIV Bilevel NIV Bilevel O2 Flow Rate 60.00 60.00 60.00 01/21/19 21:00 Pulse 105 Resp 19 B/P (MAP) 104/70 (81) Pulse Ox 91 O2 Delivery NIV Bilevel O2 Flow Rate 60.00 01/21/19 00:00 Intake Total 1970 ml Output Total 1100 ml Balance 870 ml Capillary Refill : Greater Than 3 Seconds Constitutional: other (very somnolent, on BiPAP, did not answer questions) HEENT: other (on BiPAP), EOMI Respiratory: other (fair bilat air entry; scattered rhochi and crackles) Cardiovascular: regular rate-rhythm, S1 and S2, systolic murmur (faint NILES at cardiac base) Gastrointestinal: No tender; distended; No guarding, No rebound; audible bowel sounds Extremities: No clubbing, No cyanosis, No significant edema Neurologic/Psychiatric: other (see mental status exam above; pt not able to cooperate with a neuro exam) Skin: No rash on exposed areas, No ulcerations on exposed areas Lymphatic: no adenopathy Data Review Labs Laboratory Tests 01/21/19 07:26: White Blood Count 11.5H, Red Blood Count 3.02L, Hemoglobin 9.1L, Hematocrit 29L, Mean Corpuscular Volume 95, Mean Corpuscular Hemoglobin 30, Mean Corpuscular Hemoglobin Concent 32, Red Cell Distribution Width 15.4H, Platelet Count 267, Mean Platelet Volume 9.0, Neutrophils (%) (Auto) 95H, Lymphocytes (%) (Auto) 3L, Monocytes (%) (Auto) 2, Eosinophils (%) (Auto) 0, Basophils (%) (Auto) 0, N eutrophils # (Auto) 11.0H, Lymphocytes # (Auto) 0.3L, Monocytes # (Auto) 0.2, Eosinophils # (Auto) 0.0, Basophils # (Auto) 0.0, Sodium Level 131L, Potassium Level 3.6, Chloride Level 105, Carbon Dioxide Level 12L, Anion Gap 14, Blood Urea Nitrogen 18, Creatinine 0.78, Estimat Glomerular Filtration Rate > 60, B UN/Creatinine Ratio 23, Glucose Level 85, Calcium Level 7.6L, Phosphorus Level 3.0, Magnesium Level 1.7 01/21/19 15:48: Glucometer 144H 01/21/19 17:08: D-Dimer 13.06H Microbiology 01/19/19 Blood Culture - Preliminary, Resulted No growth 01/19/19 MRSA Screen - Final, Complete MRSA not isolated 01/19/19 Urine Culture - Final, Complete 3 or more isolates A/P-Cardiology Assessment/Admission Diagnosis Ac respiratory failure. CT chest of 01/21/19: chest has worsened since the prior study as diffuse alveolar/interstitial pulmonary infiltrates have developed. These suggest these may be related to pneumonia/atelectasis and/or pulmonary edema. There is also now a sizable pericardial effusion. There is no sign of a pulmonary embolus or of a dissection, however. The neoplastic changes seen on the previous study have also progressed Metastatic lung CA Moderate pericardial effusion. Echo of 01/21/19 showed pericardial effusion of up to 2 cm thickness without any distinct evidence of hemodynamic compromise, LVEF 55-60%, grade 1 diastolic dysfunction, RVSP 36 mmHg H/o chronic tobacco use Discussion and Recomendations * I have discussed this case in detail with Dr Alegria who had asked us to see the patient in consult today. * Although the pericardial effusion does not currently appear to be of hemodynamic significance, given that pericardial effusion is new since 12/27/18 and that it is up to 2 cm in thickness and that it is likely of malignant etiology, the best treatment option (if it continues to grow, which it likely would) is a pericardial window. Accordingly, if the plan is to treat all issues fully, for consideration of pericardial window placement and for treatment of multisystem involvement in metastatic cancer, we recommend transfer to a tertiary care center. * I discussed this issue in detail with patient's and her daughter who were present by the bedside and her sister who was on the phone. Clinical Quality Measures DVT/VTE Risk/Contraindication: Risk Factor Score Per Nursin RFS Level Per Nursing on Admit: 4+=Very High ELIZABETH ABDI MD FACP [facility] CCDS Jan 21, 2019 21:36
--- NOTE | 2019-01-21 22:10 | NUR ---
Dr Alegria contacted this RN, discussed plan of care.
[2019-01-21] MEDS: SENNA W/DOCUSATE (SENOKOT S) TABLET PO SCH (22:37)
--- NOTE | 2019-01-21 22:43 | NUR ---
patient is sitting on the commode and is on the Vapotherm at this time RT decreased Vapotherm from 40 L to 30 L and 100% to 90%
[2019-01-22] VITALS (25 sets, daily range): BP systolic 91–166; BP diastolic 61–107
[2019-01-22] MEDS: RT-ALBUTEROL/IPRATROPIUM 3 ML (DUONEB) VIAL INH SCH ×6 (02:26→23:05)
[2019-01-22] MEDS: LORazepam 1 MG (ATIVAN) TAB PO PRN (02:44)
[2019-01-22] MEDS: HYDROcodone/APAP 10 MG/325 MG (LORTAB) TAB PO PRN (02:44)
[2019-01-22] MEDS: PIPERACILLIN/TAZOBACTAM (BULK) 4.5 GM in NS (IVPB) 100 ML IV SCH ×3 (04:09→18:38)
[2019-01-22] MEDS: HYDROmorphone 2 MG/ML VIAL (DILAUDID) IV PRN ×3 (04:28→19:54)
--- NOTE | 2019-01-22 05:10 | NUR ---
placed back on bipap rate 15 12/8 and 60%
--- NOTE | 2019-01-22 05:42 | Pulmonary Consultation ---
History of Present Illness History of Present Illness Date of Consultation 01/22/19 05:37 Date of Admission Allergies and Home Medications Allergies Coded Allergies: aspirin (Unverified Allergy, Unknown, 04/14/18) Home Medications Albuterol Sulfate 1 Puff Puff, 2 PUFF INH Q4H PRN for SHORTNESS OF BREATH, (Reported) 1 PUFF = 90 MCG Ascorbic Acid 500 Mg Capsule.er, 500 MG PO DAILY, (Reported) Cholecalciferol (Vitamin D3) 2,000 Unit Capsule, 2,000 UNIT PO DAILY, (Reported) Dexamethasone 4 Mg Tablet, 4 MG PO UD, (Reported) TAKE 1 TAB TWICE DAILY EXCEPT FOR THE DAY BEFORE, DAY OF, AND DAY AFTER CHEMO Guaifenesin 600 Mg Tab.er.12h, 600 MG PO DAILY, (Reported) Hydrocodone/Acetaminophen 1 Each Tablet, 1 TAB PO Q6H PRN for PAIN-MODERATE, (Reported) Ibuprofen 200 Mg Tablet, 400-600 MG PO BID PRN for PAIN-MILD, (Reported) Lorazepam 1 Mg Tablet, 1 MG PO TID PRN for ANXIETY, (Reported) Multivitamin 1 Each Tablet, 1 TAB PO DAILY, (Reported) Ondansetron HCl 8 Mg Tablet, 8 MG PO Q8H PRN for NAUSEA/VOMITING-1ST LINE, (Reported) Pantoprazole Sodium 40 Mg Tablet.dr, 40 MG PO DAILY, (Reported) Prochlorperazine Maleate 10 Mg Tablet, 10 MG PO Q6H PRN for NAUSEA/VOMITING-4TH LINE, (Reported) Ubidecarenone 100 Mg Capsule, 100 MG PO DAILY, (Reported) Venlafaxine HCl 150 Mg Cap.er.24h, 150 MG PO DAILY, (Reported) [Magic Mouthwash] , 5-10 ML PO QID PRN for MOUTH SORES, (Reported) LIDOCAINE/ANTACID/BENADRYL Past Oumhnfj-Wtynmh-Ejctlo Hx Patient Social History Alcohol Use: Denies Use Recreational Drug Use: No Smoking Status: Current Everyday Smoker Type Used: Cigarettes 2nd Hand Smoke Exposure: No Recent Foreign Travel: No Contact w/Someone Who Travel: No Recent Infectious Disease Expo: No Recent Hopitalizations: No Physical Abuse: No Sexual Abuse: No Immunizations Up To Date Date of Influenza Vaccine: Jan 18, 2018 Seasonal Allergies Seasonal Allergies: Yes Past Medical History Surgeries: Yes Ear Surgery, Hysterectomy Respiratory: Yes (lung cancer) COPD Cardiac: No Neurological: No Genitourinary: No Gastrointestinal: No Musculoskeletal: No Endocrine: No HEENT: No Cancer: Yes (STAGE 4) Brain, Lung What Type of Treatment Did You: Chemotherapy Psychosocial: No Integumentary: No Blood Disorders: No Sepsis Event Evaluation Height, Weight, BMI Height: 5'3.00" Weight: 122lbs. 0.0oz. 55.120086bn; 21.00 BMI Method:Stated Exam Exam Vital Signs Date Time Temp Pulse Resp B/P (MAP) Pulse Ox O2 Delivery O2 Flow Rate FiO2 01/22/19 05:11 NIV Bilevel 60.00 01/22/19 04:50 118 17 92 60.00 01/22/19 04:00 120 21 119/89 (99) 98 Vapotherm 40.00 100.00 01/22/19 03:00 122 20 148/92 (110) 90 Vapotherm 40.00 100.00 01/22/19 02:30 Vapotherm 40.00 100.00 01/22/19 02:26 92 Vapotherm 40.00 100 01/22/19 02:00 111 17 120/79 (93) 95 NIV Bilevel 85.00 01/22/19 01:00 101 18 104/71 (82) 94 NIV Bilevel 85.00 01/22/19 01:00 101 01/22/19 00:00 100 15 106/68 (81) 94 NIV Bilevel 85.00 01/21/19 23:35 NIV Bilevel 85.00 01/21/19 23:34 NIV Bilevel 85.00 01/21/19 23:00 118 20 109/66 (80) 92 Vapotherm 30.00 90.00 01/21/19 22:46 Vapotherm 30.00 90.00 01/21/19 22:17 96 Vapotherm 40.00 100 01/21/19 22:00 36.3 01/21/19 21:00 105 19 104/70 (81) 91 NIV Bilevel 60.00 01/21/19 20:00 108 20 93/63 (73) 92 NIV Bilevel 60.00 01/21/19 19:03 112 19 91 60.00 01/21/19 19:00 108 01/21/19 19:00 108 15 91/61 (71) 90 NIV Bilevel 60.00 01/21/19 18:00 118 17 102/73 (83) 72 NIV Bilevel 60.00 01/21/19 17:00 113 16 96/73 (81) 88 NIV Bilevel 60.00 01/21/19 16:50 NIV Bilevel 60 01/21/19 16:00 120 20 101/76 (84) 87 NIV Bilevel 60.00 01/21/19 16:00 36.2 01/21/19 15:00 131 22 112/75 (87) 89 NIV Bilevel 60.00 01/21/19 14:50 NIV Bilevel 60.00 01/21/19 14:43 131 36 94 60.00 01/21/19 14:00 135 24 Vapotherm 40.00 100.00 01/21/19 13:00 120 01/21/19 13:00 118 20 114/72 (86) Vapotherm 40.00 100.00 01/21/19 12:35 Vapotherm 40.00 100 01/21/19 12:00 133 23 Vapotherm 40.00 100.00 01/21/19 11:00 117 25 112/76 (88) 92 Vapotherm 40.00 100.00 01/21/19 10:06 91 Vapotherm 40.00 100 01/21/19 10:00 116 27 102/69 (80) 94 Vapotherm 40.00 100.00 01/21/19 09:00 120 22 85/45 (58) Vapotherm 40.00 100.00 01/21/19 08:00 Vapotherm 40.00 100 01/21/19 08:00 103 18 104/66 (79) 60 Vapotherm 40.00 100.00 01/21/19 07:04 92 Vapotherm 40.00 100 01/21/19 07:00 125 27 93/89 (90) 88 Vapotherm 40.00 100.00 01/21/19 07:00 124 01/21/19 06:00 121 23 104/62 (76) 96 Vapotherm 40.00 100.00 I & O 01/22/19 07:00 Intake Total 2240 ml Output Total 400 ml Balance 1840 ml Height & Weight Height: 5'3.00" Weight: 122lbs. 0.0oz. 55.762241ck; 21.00 BMI Method:Stated General Appearance: Chronically ill, Moderate Distress HEENT: PERRL/EOMI, Normal ENT Inspection, Pharynx Normal, Moist Mucous Mem branes, Other (hard of hearing, bilateral TMs opaque, whitish mucoid effusion) Neck: Full Range of Motion, Normal Inspection Respiratory: No Accessory Muscle Use, Decreased Breath Sounds, Respiratory Distress Cardiovascular: No Murmur, Tachycardia Capillary Refill: Greater Than 3 Seconds Gastrointestinal: non tender, soft Extremity: Normal Capillary Refill, Normal Inspection, No Pedal Edema, Other (mild tenderness in the right inguinal area without mass, tumor, hernia palpable.) Neurologic/Psychiatric: Alert, Other (oriented to person and place and most details of admission, hard of hearing) Skin: Mottled (to knees bilaterally) Results Lab Laboratory Tests 01/21/19 07:26 Assessment/Plan Assessment/Plan Acute on chronic respiratory failure -Pt is DNR/DNI -BiPAP currently -Vapotherm as tolerated during the day Metabolic encephalopathy Metastatic lung cancer - End stage -Mets to bone, adrenal glands, brain Pericardial effusion -Cardiology is following Anxiety - Adrenal insufficiency - Anemia -Monitor KALLIE GARCIA DO Jan 22, 2019 05:42
[2019-01-22] MEDS: MAGNESIUM 1 GM/100 ML IVPB 100 ML IV SCH (06:00)
[2019-01-22] MEDS: KCL 20 MEQ TAB (K-DUR) PO SCH (06:00)
[2019-01-22] MEDS: inSUlin ASPART (NovoLOG) 1 UNIT/0.01 ML (CHARGE PER UNIT) SQ SCH ×4 (06:00→22:33)
[2019-01-22] MEDS: POTASSIUM CL 10MEQ/50ML IVPB 50 ML IV SCH (06:00)
--- NOTE | 2019-01-22 06:00 | NUR ---
Family meeting held with Dr Dixon, this RN, Girish, and daughter Faith and sister Liyah on speaker phone. Plan of care discussed in depth.
[2019-01-22] MEDS: VASOPRESSIN INJECTION 20 UNIT in NORMAL SALINE 100 ML IV SCH ×2 (06:27→15:26)
[2019-01-22] MEDS: methylPREDNISolone 40 MG/ML (Solu-MEDROL) VIAL IV SCH ×3 (06:58→18:38)
[2019-01-22] MEDS ORDERED: VENlafaxine XR 75 MG (EFFEXOR XR) CAP PO SCH (07:00)
--- NOTE | 2019-01-22 07:58 | Progress Note - Hospitalist ---
Subjective HPI/CC On Admission Date Seen by Provider: Jan 22, 2019 Time Seen by Provider: 07:52 Subjective/Events-last exam Pt is sleeping soundly on BiPAP. Focused Exam Lactate Level 01/19/19 16:56: Lactic Acid Level 3.58*H 01/19/19 21:25: Lactic Acid Level 3.87*H 01/19/19 23:20: Lactic Acid Level 2.89*H Objective Exam Vital Signs Vital Signs Date Time Temp Pulse Resp B/P (MAP) Pulse Ox O2 Delivery O2 Flow Rate FiO2 01/22/19 07:21 109 19 91 65.00 01/22/19 06:00 115/84 (94) NIV Bilevel 01/22/19 02:26 100 01/21/19 22:00 36.3 Capillary Refill : Greater Than 3 Seconds General Appearance: Chronically ill, Other (sleeping soundedly, on BiPAP) HEENT: Other (thinning ears) Respiratory: Decreased Breath Sounds, Respiratory Distress (on BiPAP) Cardiovascular: No Murmur, Tachycardia Gastrointestinal: Normal Bowel Sounds, Soft, Distended Neurologic/Psychiatric: Other (sleeping, did not arouse ) Skin: Mottled Results/Procedures Lab Patient resulted labs reviewed. Assessment/Plan Assessment and Plan Assess & Plan/Chief Complaint Acute on Chronic Respiratory Failure Metastatic Lung Cancer Back on BiPAP and quite sedate Discussed with sister who is CLINICAL REHABILITATION COORDINATOR yesterday and CT chest obtained which revealed pericardial effusion Dr Woodard consulted, appreciate recs Recommended transfer to tertiary center if they wanted the effusion addre ss Shakeel has declined that Dr Dixon discussed with daughter, sister, and patient regarding goals of care states the plan is to wait for a grandson to get here and then will likely make her comfort measures Code status remains DNR Oncology consulted, appreciate recs Palliative Care Consulted Generalized Anxiety Disorder Effexor and Ativan from home meds if able to take PO Adrenal insufficiency due to chronic steroid use Solu Medrol Metastatic Cancer with mets to bones Continue pain regimen Constipation Bowel regimen ordered Anemia Likely due to chronic disease Diagnosis/Problems Diagnosis/Problems (1) Acute and chronic respiratory failure with hypoxia (2) Steroid-induced adrenal suppression (3) Non-small cell carcinoma of right lung, stage 4 (4) Metastatic primary lung cancer Status: Acute Qualifiers: Laterality: unspecified laterality Qualified Codes: C34.90 - Malignant neoplasm of unspecified part of unspecified bronchus or lung Clinical Quality Measures DVT/VTE Risk/Contraindication: Risk Factor Score Per Nursin RFS Level Per Nursing on Admit: 4+=Very High ETHEL BERRY MD Jan 22, 2019 7:57 am
--- NOTE | 2019-01-22 09:03 | Diagnostic Imaging Report ---
EXAMINATION: Chest radiograph, portable AP view. DATE: 01/22/2019 6:46 AM hours. INDICATION: 58-year-old female, dyspnea. History of lung cancer with metastasis. COMPARISON: January 21, 2019. FINDINGS: There is a left-sided venous catheter with tip non-parallel in position at the level of the upper SVC. The patient is rotated. Stable overall appearance of the cardiomediastinal silhouette. There is no identified pneumothorax. No definite large pleural effusion. There are multifocal bilateral interstitial and alveolar opacities with unchanged appearance since comparison exam. IMPRESSION: 1. Unchanged extensive nonspecific interstitial and alveolar opacities bilaterally. Dictated by: Dictated on workstation # [id number]
[2019-01-22] MEDS: PANTOPRAZOLE 40 MG (PROTONIX) TAB PO SCH (12:22)
[2019-01-22] MEDS: LACTOBACILLUS ACIDOPHILUS (PROBIOTIC) CAPSULE PO SCH ×3 (12:22→16:01)
[2019-01-22] MEDS: MULTIVIT W/MINERALS TAB (THERAGRAN M) PO SCH (12:22)
[2019-01-22] MEDS: NOREPINEPHRINE 4 MG in NS (IVPB) 250 ML IV SCH ×2 (12:22→20:04)
[2019-01-22] MEDS: SENNA W/DOCUSATE (SENOKOT S) TABLET PO SCH ×2 (12:23→20:08)
[2019-01-22] MEDS: guaiFENesin (MUCINEX) 600 MG TAB PO SCH (12:23)
[2019-01-22] MEDS: D5 NS 1000 ML IV SOLUTION 1,000 ML IV SCH ×3 (12:32→19:55)
--- NOTE | 2019-01-22 12:58 | Progress Note - Cardiology ---
Cardiology SOAP Progress Note Subjective: Somnolent. Difficult to wake up. Does not provide symptoms. Fam by bedside. They say she has been communicative off and on Objective: I&O/Vital Signs 01/22/19 01/22/19 01/22/19 01/22/19 01:00 01:00 02:00 02:26 Pulse 101 101 111 Resp 18 17 B/P (MAP) 104/71 (82) 120/79 (93) Pulse Ox 94 95 92 O2 Delivery NIV Bilevel NIV Bilevel Vapotherm O2 Flow Rate 85.00 85.00 40.00 FiO2 100 01/22/19 01/22/19 01/22/19 01/22/19 02:30 03:00 04:00 04:00 Pulse 122 120 Resp 20 21 B/P (MAP) 148/92 (110) 119/89 (99) Pulse Ox 90 98 O2 Delivery Vapotherm Vapotherm Vapotherm Vapotherm O2 Flow Rate 40.00 40.00 40.00 40.00 100.00 100.00 100.00 FiO2 100 01/22/19 01/22/19 01/22/19 01/22/19 04:50 05:00 05:11 06:00 Pulse 118 115 113 Resp 17 19 13 B/P (MAP) 121/83 (96) 115/84 (94) Pulse Ox 92 94 92 O2 Delivery Vapotherm NIV Bilevel NIV Bilevel O2 Flow Rate 60.00 40.00 60.00 60.00 100.00 01/22/19 01/22/19 01/22/19 01/22/19 07:00 07:00 07:00 07:00 Temp 35.8 Pulse 109 109 Resp 13 B/P (MAP) 119/79 (92) Pulse Ox 86 O2 Delivery NIV Bilevel NIV Bilevel O2 Flow Rate 65.00 65.00 01/22/19 01/22/19 01/22/19 01/22/19 07:21 08:00 08:00 09:00 Pulse 109 108 105 Resp 19 13 14 B/P (MAP) 111/81 (91) 119/84 (96) Pulse Ox 91 93 99 O2 Delivery NIV Bilevel NIV Bilevel NIV Bilevel O2 Flow Rate 65.00 65.00 65.00 FiO2 60 01/22/19 01/22/19 09:52 10:55 Pulse 120 Resp 40 B/P (MAP) O2 Delivery Vapotherm O2 Flow Rate 40.00 65.00 100.00 01/22/19 00:00 Intake Total 2240 ml Output Total 500 ml Balance 1740 ml Weight (Pounds): 122 Weight (Ounces): 0.0 Weight (Calculated Kilograms): 55.326692 Constitutional: other (very somnolent, on BiPAP, did not answer questions) Respiratory: other (fair bilat air entry; scattered rhochi and crackles) Cardiovascular: regular rate-rhythm, S1 and S2, systolic murmur (faint NILES at cardiac base) Gastrointestional: No tender; distended; No guarding, No rebound; audible bowel sounds Extremities: No clubbing, No cyanosis, No significant edema Neurologic/Psychiatric: other (see mental status exam above; pt not able to cooperate with a neuro exam) Skin: No rash on exposed areas, No ulcerations on exposed areas Results/Procedures: Labs Laboratory Tests 01/21/19 15:48: Glucometer 144H 01/21/19 17:08: D-Dimer 13.06H 01/22/19 10:59: Glucometer 148H Microbiology 01/19/19 Blood Culture - Preliminary, Resulted No growth 01/19/19 MRSA Screen - Final, Complete MRSA not isolated 01/19/19 Urine Culture - Final, Complete 3 or more isolates Laboratory Tests 01/21/19 07:26 A/P: Assessment: Ac respiratory failure. CT chest of 01/21/19: chest has worsened since the prior study as diffuse alveolar/interstitial pulmonary infiltrates have developed. These suggest these may be related to pneumonia/atelectasis and/or pulmonary edema. There is also now a sizable pericardial effusion. There is no sign of a pulmonary embolus or of a dissection, however. The neoplastic changes seen on the previous study have also progressed Metastatic lung CA Moderate pericardial effusion. Echo of 01/21/19 showed pericardial effusion of up to 2 cm thickness without any distinct evidence of hemodynamic compromise, LVEF 55-60%, grade 1 diastolic dysfunction, RVSP 36 mmHg H/o chronic tobacco use Plan: * As documented in my previous note, I have discussed this case in detail with Dr Alegria and with patient's family (including her and a daughter) * Although the pericardial effusion does not currently appear to be of hemodynamic significance, given that pericardial effusion is new since 12/27/18 and that it is up to 2 cm in thickness and that it is likely of malignant etiology, the best treatment option (if it continues to grow, which it likely would) is a pericardial window. Accordingly, if the plan is to treat all issues fully, for consideration of pericardial window placement and for treatment of multisystem involvement in metastatic cancer, we recommend transfer to a tertiary care center. * intermediate accountant prognosis appears poor, given metastatic cancer and multisystem involvement ELIZABETH ABDI MD FACP [facility] Jan 22, 2019 12:58
[2019-01-22] MEDS: KETOROLAC 30 MG/ML VIAL IVP PRN (14:30)
[2019-01-22] MEDS: ENOXAPARIN 40 MG/0.4 ML (LOVENOX) SYR SQ SCH (14:33)
[2019-01-22] MEDS: NICOTINE PATCH REMOVAL TP SCH (19:56)
[2019-01-22] MEDS: NICOTINE 21 MG (NICODERM) PATCH TD SCH (22:36)
[2019-01-23] VITALS (8 sets, daily range): BP systolic 121–149; BP diastolic 80–100
[2019-01-23] MEDS ORDERED: LORazepam INJ 2 MG/ML (ATIVAN) VIAL ONE (01:45)
[2019-01-23] MEDS: VASOPRESSIN INJECTION 20 UNIT in NORMAL SALINE 100 ML IV SCH (01:54)
[2019-01-23] MEDS: HYDROmorphone 2 MG/ML VIAL (DILAUDID) IV PRN ×2 (01:54→06:44)
[2019-01-23] MEDS: RT-ALBUTEROL/IPRATROPIUM 3 ML (DUONEB) VIAL INH SCH ×2 (01:56→06:32)
[2019-01-23] MEDS: methylPREDNISolone 40 MG/ML (Solu-MEDROL) VIAL IV SCH (01:58)
[2019-01-23] MEDS: PIPERACILLIN/TAZOBACTAM (BULK) 4.5 GM in NS (IVPB) 100 ML IV SCH (02:51)
[2019-01-23] MEDS: KETOROLAC 30 MG/ML VIAL IVP PRN (03:46)
[2019-01-23] MEDS ORDERED: LORazepam INJ 2 MG/ML (ATIVAN) VIAL IV PRN ×2 (04:00→07:00)
[2019-01-23 04:10] LABS: BASOPHILS % (AUTO) 0 % (0-10); EOSINOPHILS % (AUTO) 0 % (0-10); HEMATOCRIT 29 % (35-52); LYMPHOCYTES # (AUTO) 0.2 X 10^3 (1.0-4.0); LYMPHOCYTES % (AUTO) 2 % (12-44); MEAN CORPUSCULAR HEMOGLOBIN 30 PG (25-34); MEAN CORPUSCULAR HGB CONC 31 G/DL (32-36); MEAN CORPUSCULAR VOLUME 96 FL (80-99); MEAN PLATELET VOLUME 9.4 FL (7.4-10.4); MONOCYTES # (AUTO) 0.3 X 10^3 (0.0-1.0); MONOCYTES % (AUTO) 2 % (0-12); NEUTROPHILS # (AUTO) 11.1 X 10^3 (1.8-7.8); NEUTROPHILS % (AUTO) 96 % (42-75); PLATELET COUNT 254 10^3/uL (130-400); RED CELL DISTRIBUTION WIDTH 15.5 % (10.0-14.5); WHITE BLOOD COUNT 11.5 10^3/uL (4.3-11.0)
[2019-01-23 04:29] LABS: BUN/CREATININE RATIO 25; CALCIUM 8.2 MG/DL (8.5-10.1); CARBON DIOXIDE 16 MMOL/L (21-32); CHLORIDE 112 MMOL/L (98-107); GFR ESTIMATED > 60; GLUCOSE 130 MG/DL (70-105); MAGNESIUM 2.2 MG/DL (1.6-2.4); POTASSIUM 3.7 MMOL/L (3.6-5.0); SODIUM 140 MMOL/L (135-145)
[2019-01-23] MEDS ORDERED: NS IV 1000 ML 1,000 ML IV SCH (05:15)
[2019-01-23] MEDS ORDERED: NS IV 1000 ML 1,000 ML ONE (05:31)
[2019-01-23] MEDS ORDERED: LACTATED RINGERS 0 ML IV ONE (05:31)
[2019-01-23] MEDS: inSUlin ASPART (NovoLOG) 1 UNIT/0.01 ML (CHARGE PER UNIT) SQ SCH (05:37)
[2019-01-23] MEDS: POTASSIUM CL 10MEQ/50ML IVPB 50 ML IV SCH (05:38)
[2019-01-23] MEDS: KCL 20 MEQ TAB (K-DUR) PO SCH (05:38)
[2019-01-23] MEDS: MAGNESIUM 1 GM/100 ML IVPB 100 ML IV SCH (05:38)
[2019-01-23] MEDS ORDERED: RT-ALBUTEROL/IPRATROPIUM 3 ML (DUONEB) VIAL INH PRN (07:00)
[2019-01-23] MEDS ORDERED: SALIVA STIMULANT MOUTH SPRAY (BIOTENE) 1.5 OZ MM PRN (07:00)
[2019-01-23] MEDS ORDERED: PROMETHAZINE INJ 25 MG/ML (PHENERGAN) AMP IVP PRN (07:00)
[2019-01-23] MEDS ORDERED: HYDROmorphone 2 MG/ML VIAL (DILAUDID) IV PRN (07:00)
[2019-01-23] MEDS ORDERED: GLYCOPYRROLATE 0.2 MG/ML (ROBINUL) 2 ML VIAL IV PRN (07:00)
[2019-01-23] MEDS ORDERED: ARTIFICAL TEARS 0.4 ML UNIT DOSE (REFRESH PLUS) OU PRN (07:00)
[2019-01-23] MEDS ORDERED: SCOPOLAMINE 1.5 MG (TRANSDERM-SCOP) PATCH TOP SCH (07:00)
[2019-01-23] MEDS ORDERED: ATROPINE 1% OPHTHALMIC SOLN 2 ML SL PRN (07:00)
--- NOTE | 2019-01-23 07:12 | Diagnostic Imaging Report ---
INDICATION: Shortness of breath. COMPARISON: 01/22/2019 FINDINGS: Single view of the chest demonstrates increasing infiltrates in both lungs, most pronounced in the right base. There are small bilateral pleural effusions that have developed, right greater than left. There is no pneumothorax. The Port-A-Cath is stable. IMPRESSION: 1. Worsening bilateral pulmonary infiltrates. 2. Increasing effusions, more so on the right than the left. Dictated by: Dictated on workstation # [id number]
--- NOTE | 2019-01-23 08:10 | NUR ---
Timeline Note Below: 01/22/19 at 2115 Mark RosenbaumCommutator Operator, at bedside with this RN discussing pt's status with -Girish and son- Gomez at bedside. Pt currently requiring BiPAP at 65%. 01/22/19 at 2200- Pt's wedding ring and band given to -Girish at this time. 01/23/19 at 0130- Pt's respiratory status declining, patient took off BiPAP and refused to place back on. Patient placed on Vapotherm at 100% with oxygen saturation at 35%. - Girish and son-Gomez at bedside. Dr. Tripathi from EICU notified and consulted family via videoconference at bedside at this time. Dr. Tripathi explained to Girish and oGmez that patient's status declining, patient currently on BiPAP at 100% at this time. 01/23/19 at 0342- Pt currently on BiPAP requiring 85%, patient increasingly anxious. Notified EICU, new orders received at this time. See order hx. 01/23/19 at 0620- This RN, Dr. Dixon, Ilsa FloresCommutator Operator, Daughter-Faith, Son-Gomez, and -Girish in conference room discussing patient's declining status. Comfort care addressed, Faith and Girish agreed at this time that it is best to keep patient comfortable and to remove BiPAP. 01/23/19 at 0640- DaughterJose, SonNiranjan and -Girish present at bedside. BiPAP removed and machines turned off. Pt repositioned for comfort. 01/23/10 at 0645- Fransico was on phone with family, she came to patient's door and asked that BiPAP be placed back on, stated, "I didn't know you were taking it off right now, her sisters want to come and say goodbye". Dr. Dixon notified at this time, patient placed back on BiPAP at 85%.
--- NOTE | 2019-01-23 09:44 | NUR ---
PALLIATIVE CARE: This RN spoke with Dr. Dixon at 7 a.m. to discuss the family meeting and the change in status to CCMO(modified) with continued BiPAP until family arrive to hospital. 0900a.m. arrive to patients bedside. Daughter and in the room. They report to this RN the plan is for continued BiPAP and transition to the 4th floor then removal of the BiPAP at the families direction. This has been a roller coaster of emotions for the family due to the of grand baby at the same time as her hospitalization. Patient was able to see the grand baby yesterday and has declined rapidly since that time. The family and I appreciate data warehouse analyst, Respiratory therapist and nursing for their willingness to accommodate the requests of the family to make this unpleasant/stressful experience the best that it can be.
--- NOTE | 2019-01-23 10:01 | Progress Note - Cardiology ---
Cardiology SOAP Progress Note Subjective: Unconscious with agonal breathing; unable to communicate Objective: I&O/Vital Signs 01/22/19 01/22/19 01/22/19 01/22/19 22:00 22:00 23:00 23:00 Temp 35.9 Pulse 115 113 113 Resp 9 14 14 B/P (MAP) 121/85 (97) 112/80 (91) 112/80 (91) Pulse Ox 90 86 86 O2 Delivery NIV Bilevel NIV Bilevel NIV Bilevel O2 Flow Rate 65.00 65.00 65.00 01/22/19 01/22/19 01/22/19 01/23/19 23:05 23:08 23:08 00:00 Pulse 116 116 116 112 Resp 20 11 11 10 B/P (MAP) 133/87 (102) Pulse Ox 84 90 90 94 O2 Delivery NIV Bilevel NIV Bilevel NIV Bilevel O2 Flow Rate 65.00 75.00 75.00 75.00 01/23/19 01/23/19 01/23/19 01/23/19 00:00 00:00 01:00 01:00 Temp 36.2 Pulse 111 111 B/P (MAP) 134/96 (109) Pulse Ox 94 O2 Delivery NIV Bilevel NIV Bilevel O2 Flow Rate 75.00 FiO2 75 01/23/19 01/23/19 01/23/19 01/23/19 01:52 01:57 02:00 02:50 Pulse 137 134 134 126 Resp 12 20 10 8 B/P (MAP) 149/100 (116) 135/88 (104) Pulse Ox 93 97 97 99 O2 Delivery NIV Bilevel NIV Bilevel NIV Bilevel O2 Flow Rate 100.00 100.00 100.00 100.00 01/23/19 01/23/19 01/23/19 01/23/19 03:00 03:47 04:00 04:00 Temp 36.0 Pulse 126 130 Resp 9 12 B/P (MAP) 137/87 (104) Pulse Ox 99 96 O2 Delivery NIV Bilevel NIV Bilevel NIV Bilevel O2 Flow Rate 100.00 85.00 FiO2 85 01/23/19 01/23/19 01/23/19 01/23/19 04:00 05:00 06:00 06:33 Pulse 125 121 111 109 Resp 9 8 10 19 B/P (MAP) 143/88 (106) 125/80 (95) 121/80 (94) Pulse Ox 97 98 97 96 O2 Delivery NIV Bilevel NIV Bilevel NIV Bilevel O2 Flow Rate 85.00 85.00 85.00 85.00 01/23/19 07:00 Pulse 136 01/23/19 00:00 Intake Total 1100 ml Output Total 425 ml Balance 675 ml Weight (Pounds): 122 Weight (Ounces): 0.0 Weight (Calculated Kilograms): 55.269936 Constitutional: other (agonal breathing, unreponsive) Respiratory: other (fair bilat air entry; scattered rhochi and crackles) Cardiovascular: regular rate-rhythm, S1 and S2, systolic murmur (faint NILES at cardiac base) Gastrointestional: No tender; distended; No guarding, No rebound; audible bowel sounds Extremities: No clubbing, No cyanosis, No significant edema Neurologic/Psychiatric: other (see mental status exam above; pt not able to cooperate with a neuro exam) Skin: No rash on exposed areas, No ulcerations on exposed areas Results/Procedures: Labs Laboratory Tests 01/22/19 10:59: Glucometer 148H 01/22/19 20:12: Glucometer 133H 01/23/19 03:30: White Blood Count 11.5H, Red Blood Count 3.02L, Hemoglobin 9.0L, Hematocrit 29L, Mean Corpuscular Volume 96, Mean Corpuscular Hemoglobin 30, Mean Corpuscular Hemoglobin Concent 31L, Red Cell Distribution Width 15.5H, Platelet Count 254, M esther Platelet Volume 9.4, Neutrophils (%) (Auto) 96H, Lymphocytes (%) (Auto) 2L, Monocytes (%) (Auto) 2, Eosinophils (%) (Auto) 0, Basophils (%) (Auto) 0, Neutrophils # (Auto) 11.1H, Lymphocytes # (Auto) 0.2L, Monocytes # (Auto) 0.3, Eosinophils # (Auto) 0.0, Basophils # (Auto) 0.0, Sodium Level 140, Potassium Level 3.7, Chloride Level 112H, Carbon Dioxide Level 16L, Anion Gap 12, Blood Urea Nitrogen 20H, Creatinine 0.80, Estimat Glomerular Filtration Rate > 60, BUN/Creatinine Ratio 25, Glucose Level 130H, Calcium Level 8.2L, Phosphorus Level 3.0, Magnesium Level 2.2 Microbiology 01/19/19 Blood Culture - Preliminary, Resulted No growth 01/19/19 MRSA Screen - Final, Complete MRSA not isolated 01/19/19 Urine Culture - Final, Complete 3 or more isolates Laboratory Tests 01/23/19 03:30 A/P: Assessment: Ac respiratory failure. CT chest of 01/21/19: chest has worsened since the prior study as diffuse alveolar/interstitial pulmonary infiltrates have developed. These suggest these may be related to pneumonia/atelectasis and/or pulmonary edema. There is also now a sizable pericardial effusion. There is no sign of a pulmonary embolus or of a dissection, however. The neoplastic changes seen on the previous study have also progressed Metastatic lung CA Moderate pericardial effusion. Echo of 01/21/19 showed pericardial effusion of up to 2 cm thickness without any distinct evidence of hemodynamic compromise, LVEF 55-60%, grade 1 diastolic dysfunction, RVSP 36 mmHg H/o chronic tobacco use Plan: * Poor prognosis * Family has decided on comfort care only Clinical Quality Measures Type of Care: Type of Care: Comfort Measures ELIZABETH ABDI MD FACP FAC CCDS Jan 23, 2019 10:01
--- NOTE | 2019-01-23 11:15 | NUR ---
PT'S FAMILY AGREEABLE AT THIS TIME TO MOVE PT TO 4TH FLOOR. REPORT GIVEN TO Cecil MARIN RN. PT TRANSFERRED TO ROOM 401 VIA BED ACCOMPANIED BY RT FAMILY REQUESTING PT TO REMAIN ON BIPAP AT THIS TIME, ALL PERSONAL BELONGINGS SENT WITH PT 'S FAMILY. PT LEFT ICU AT 1045
--- NOTE | 2019-01-23 11:30 | NUR ---
Agricultural Commodities Inspector follow up on 4th Floor: , Girish present with his parents from [place], the pt's sisters, nephews, daughter and grandchildren. I offered healing presence and offered prayer. The pt is Buddhist. Family said their family Clay Press Operator has been contacted. He is from out of town, and I offered to contact the local [employer] for brenda support if desired. They shared that three days ago the pt had confession and received sacrament of the sick. Outside the room, Girish approached the nurses and myself and shared he was frustrated because he had been waiting for additional family to arrive since early this morning, and he did not want to prolong his 's suffering, especially being uncertain of when family would arrive. He described strained relationships within the family stating that his parents were his only support system. Girish was tearful and and requested that pt's oxymask be removed now because he was feeling emotionally spent, sad and frustrated. He described feeling ready for his to be at peace, because she has struggled with complications of lung cancer since late 2018. Family was tearful while respiratory removed mask. The nephews left to stand outside the room. I rounded between family inside and outside the room, providing support to individuals and facilitating sacred space for grief. Girish approached me later in the hallway, hugged me, and expressed gratitude for the support.
--- NOTE | 2019-01-23 11:40 | Pulmonary Progress Note ---
Subjective Time Seen by a Provider: 14:41 Subjective/Events-last exam Pt has worsening respiratory failure. Family at bedside. SHe is a DNR/DNI. Sepsis Event Evaluation Height, Weight, BMI Height: 5'3.00" Weight: 122lbs. 0.0oz. 55.380807ok; 21.00 BMI Method:Stated Exam Exam Vital Signs Date Time Temp Pulse Resp B/P (MAP) Pulse Ox O2 Delivery O2 Flow Rate FiO2 01/23/19 07:00 136 01/23/19 06:33 109 19 96 85.00 01/23/19 06:00 111 10 121/80 (94) 97 NIV Bilevel 85.00 01/23/19 05:00 121 8 125/80 (95) 98 NIV Bilevel 85.00 01/23/19 04:00 125 9 143/88 (106) 97 NIV Bilevel 85.00 01/23/19 04:00 36.0 01/23/19 04:00 NIV Bilevel 85 01/23/19 03:47 130 12 96 NIV Bilevel 85.00 01/23/19 03:00 126 9 137/87 (104) 99 NIV Bilevel 100.00 01/23/19 02:50 126 8 135/88 (104) 99 NIV Bilevel 100.00 01/23/19 02:00 134 10 149/100 (116) 97 NIV Bilevel 100.00 01/23/19 01:57 134 20 97 100.00 01/23/19 01:52 137 12 93 NIV Bilevel 100.00 01/23/19 01:00 111 01/23/19 01:00 111 134/96 (109) 94 NIV Bilevel 75.00 01/23/19 00:00 NIV Bilevel 75 01/23/19 00:00 36.2 01/23/19 00:00 112 10 133/87 (102) 94 NIV Bilevel 75.00 01/22/19 23:08 116 11 90 NIV Bilevel 75.00 01/22/19 23:08 116 11 90 NIV Bilevel 75.00 01/22/19 23:05 116 20 84 65.00 01/22/19 23:00 113 14 112/80 (91) 86 NIV Bilevel 65.00 01/22/19 23:00 113 14 112/80 (91) 86 NIV Bilevel 65.00 01/22/19 22:00 115 9 121/85 (97) 90 NIV Bilevel 65.00 01/22/19 22:00 35.9 01/22/19 21:00 116 9 117/81 (93) 92 NIV Bilevel 65.00 01/22/19 20:00 35.4 01/22/19 20:00 NIV Bilevel 65 01/22/19 20:00 125 12 138/85 (102) NIV Bilevel 65.00 01/22/19 19:00 117 13 137/90 (106) NIV Bilevel 65.00 01/22/19 19:00 117 01/22/19 18:35 129 26 90 65.00 01/22/19 18:00 123 14 150/99 (116) Vapotherm 40.00 100.00 01/22/19 17:00 116 16 104/73 (83) NIV Bilevel 65.00 01/22/19 16:48 36.6 130 01/22/19 16:20 NIV Bilevel 60 01/22/19 16:00 120 11 108/72 (84) NIV Bilevel 65.00 01/22/19 15:26 129 40 65.00 01/22/19 15:20 NIV Bilevel 65.00 01/22/19 15:00 131 17 166/106 (126) Vapotherm 45.00 100.00 01/22/19 14:20 Vapotherm 45.00 100.00 01/22/19 14:00 108 15 125/80 (95) 91 NIV Bilevel 60.00 01/22/19 13:04 110 01/22/19 13:00 36.4 01/22/19 13:00 111 15 127/68 (87) 85 NIV Bilevel 60.00 01/22/19 12:35 NIV Bilevel 60.00 01/22/19 12:35 NIV Bilevel 60 01/22/19 12:00 107 14 109/67 (81) 82 NIV Bilevel 65.00 01/22/19 12:00 35.2 I & O 01/23/19 07:00 Intake Total 2220 ml Output Total 775 ml Balance 1445 ml Height & Weight Height: 5'3.00" Weight: 122lbs. 0.0oz. 55.916979zw; 21.00 BMI Method:Stated General Appearance: Anxious, Chronically ill, Moderate Distress, Other (sleeping soundedly, on BiPAP) HEENT: Other (thinning ears) Neck: Full Range of Motion, Normal Inspection Respiratory: Decreased Breath Sounds, Respiratory Distress (on BiPAP) Cardiovascular: No Murmur, Tachycardia Capillary Refill: Less Than 3 Seconds Gastrointestinal: non tender, soft Extremity: Normal Capillary Refill, Normal Inspection, No Pedal Edema, Other (mild tenderness in the right inguinal area without mass, tumor, hernia palpable.) Neurologic/Psychiatric: Other (sleeping, did not arouse ) Skin: Mottled Results Lab Laboratory Tests 01/23/19 03:30 Assessment/Plan Assessment/Plan Acute on chronic respiratory failure -Pt is DNR/DNI -BiPAP currently -Vapotherm as tolerated during the day Metabolic encephalopathy Metastatic lung cancer - End stage -Mets to bone, adrenal glands, brain Pericardial effusion -Cardiology is following Anxiety - Adrenal insufficiency - Anemia -Monitor I had a long discussion with Patients , daughter, and son. I explained in detail patients current medical condition and prognosis. PT is very critical at this time with worsening respiratory failure. During discussion all family agreed with comfort care only and removing BiPAP. After taking BiPAP mask off patient family became upset and stated they were not ready to remove mask yet. Family is still ok with comfort care however wants to leave BiPAP mask on until other family arrives. Bipap was reapplied at that time. states he knows she needs DIRECTOR OF SAFETY AND SECURITY and wants to continue comfort care only. Critical Care: Critically Ill Patient Time spent with patient (mins): 60 KALLIE GARCIA DO Jan 23, 2019 11:40
--- NOTE | 2019-01-23 11:42 | NUR ---
Patient arrived to room at 1120. Report received from DARRIAN Moran. This RN to assume care and agree with previous assessment.
--- NOTE | 2019-01-23 11:58 | NUR ---
Palliative Care RN in to see patient. She does have lots of family in the room with daughter and sister at bedside. Patient with OXYMASK on at this time unsure of liter flow currently. Anticipate that this will be weaned down but likely very slowly. She is using accessory muscles to breath and moaned a couple times indicating discomfort. Michelle COLMENRAES is going to give PRN Morphine.
--- NOTE | 2019-01-23 13:15 | Discharge Summary ---
Diagnosis/Chief Complaint Date of Admission Jan 19, 2019 at 17:00 Date of Discharge 01/23/19 Discharge Date: Jan 23, 2019 Reason Hospital Visit 58 yo F with history of metastatic non-small cell lung cancer admitted for acute on chronic hypoxic respiratory failure. She was admitted and requiring 5 L oxygen. She is supposed to be on 2 L oxygen nasal cannula for the past 6 months but has not been using it. Patient initially presented to the ER complaining of pelvic pain which is not new but has not improved any. She has used hydrocodone but this has not been helping. 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 -Patient is currently on Vapotherm she was placed on BiPAP overnight as her oxygen saturation dropped into the 70s partially attributed to the IV fluids as well as opioids and benzodiazepines as her respiratory rate also dropped. She was on 250 mL an hour but has been backed off to 75. Patient also was placed on Zosyn and cefepime for sepsis coverage but on exam this morning I do not find that she has a suspected infection. Appears her metastatic cancer is progressing. Of note though she has been taking 4 mg dexamethasone for the past few months and effort to help with the dizziness and headaches associated with metastasis to her brain. Patient's at bedside and acknowledges she continually has gotten worse in her health. She has underwent chemotherapy and radiation. She had an oncology appt today. Discussion undertaken with patient to verify her CODE STATUS as the ER obtained a DO NOT RESUSCITATE. Patient communicated this with me as well that she does not desire intubation or CPR. Discharge Summary Hospital Course Labs Laboratory Tests 01/21/19 07:26: White Blood Count 11.5H, Red Blood Count 3.02L, Hemoglobin 9.1L, Hematocrit 29L, Red Cell Distribution Width 15.4H, Neutrophils (%) (Auto) 95H, Lymphocytes (%) (Auto) 3L, Neutrophils # (Auto) 11.0H, Lymphocytes # (Auto) 0.3L, Sodium Level 131L, Carbon Dioxide Level 12L, Calcium Level 7.6L 01/21/19 15:48: Glucometer 144H 01/21/19 17:08: D-Dimer 13.06H 01/22/19 10:59: Glucometer 148H 01/22/19 20:12: Glucometer 133H 01/23/19 03:30: White Blood Count 11.5H, Red Blood Count 3.02L, Hemoglobin 9.0L, Hematocrit 29L, Mean Corpuscular Hemoglobin Concent 31L, Red Cell Distribution Width 15.5H, Neutrophils (%) (Auto) 96H, Lymphocytes (%) (Auto) 2L, Neutrophils # (Auto) 11.1H, Lymphocytes # (Auto) 0.2L, Chloride Level 112H, Carbon Dioxide Level 16L, Blood Urea Nitrogen 20H, Glucose Level 130H, Calcium Level 8.2L Procedures None. Discharge Physical Examination Allergies: Coded Allergies: aspirin (Unverified Allergy, Unknown, 04/14/18) Vitals & I&Os Vital Signs Date Time Temp Pulse Resp B/P (MAP) Pulse Ox O2 Delivery O2 Flow Rate FiO2 01/23/19 07:00 136 01/23/19 06:33 19 96 85.00 01/23/19 06:00 121/80 (94) NIV Bilevel 01/23/19 04:00 36.0 01/23/19 04:00 85 Discharge Home Medications Reviewed and agree with Discharge Medication list on patient's Discharge Instruc tion sheet Instructions to Patient/Family Please see electronic discharge instructions given to patient. Clinical Quality Measures DVT/VTE Risk/Contraindication: Risk Factor Score Per Nursin RFS Level Per Nursing on Admit: 4+=Very High Comfort Measures/ Type of Care: Comfort Measures Date of : Jan 23, 2019 Time of : 12:52 HERMINIA KENNEY MD Jan 23, 2019 13:15
--- NOTE | 2019-01-23 13:25 | NUR ---
PALLIATIVE CARE RN was called with notification of passing. Went to room to offer condolences. Daughter is at bedside and crying, being consoled by her . sitting in chair and is by his words "numb". Other family members at bedside and grieving appropriately. told me that she had made all her arrangements...with [facility]. They are not ready yet to call them.
--- NOTE | 2019-01-23 13:35 | NUR ---
Responded to of pt, offered support and stayed near room, viisting with family members and offering assistance.
== END 2019-01-23 18:25 | disposition expired | DRG 189 ==
LOC: EDUNIT# 13:18 → ER 13:19 → ICU 17:00 → 4TH 01-23 10:45
PROVIDERS: ADMIT Family Medicine; ATTEND Family Medicine
DX: J96.21 Acute and chronic respiratory failure with hypoxia (principal); C34.91 Malignant neoplasm of unspecified part of right bronchus or lung; C79.31 Secondary malignant neoplasm of brain; G93.41 Metabolic encephalopathy; C79.89 Secondary malignant neoplasm of other specified sites; I31.3 Pericardial effusion (noninflammatory); C79.72 Secondary malignant neoplasm of left adrenal gland; Z66 Do not resuscitate; Z51.5 Encounter for palliative care; C79.71 Secondary malignant neoplasm of right adrenal gland; E27.40 Unspecified adrenocortical insufficiency; C79.51 Secondary malignant neoplasm of bone; C77.9 Secondary and unspecified malignant neoplasm of lymph node, unspecified; J84.89 Other specified interstitial pulmonary diseases; T45.1X5A Adverse effect of antineoplastic and immunosuppressive drugs, initial encounter; J44.9 Chronic obstructive pulmonary disease, unspecified; F41.9 Anxiety disorder, unspecified; E87.6 Hypokalemia; R51 Headache; R47.81 Slurred speech; R42 Dizziness and giddiness; J30.2 Other seasonal allergic rhinitis; K59.00 Constipation, unspecified; D63.8 Anemia in other chronic diseases classified elsewhere; F17.210 Nicotine dependence, cigarettes, uncomplicated; Z79.52 Long term (current) use of systemic steroids; Z92.3 Personal history of irradiation; Z92.21 Personal history of antineoplastic chemotherapy
CPT/HCPCS: 36415; 36600; 70450; 71045; 71275; 74177; 80048; 80053; 81000; 82805; 82962; 83605; 83735; 84100; 85007; 85025; 85027; 85379; 85610; 85730; 87040; 87081; 87088; 87449; 87804; 93306; 94640; 94660; 96361; 96365; 96366; 96367; 96375; 96376